=== PATIENT | female | born 1940 | race Caucasian/White ===

== ENCOUNTER 2017-05-04 19:05 | Emergency (ER) | payer MEDICARE, OTHER ==
[~2017-05-04] VITALS: Ht 165.1 cm; Wt 64.9 kg
[~2017-05-04 19:05] MED LIST: ALEN70 PO; ALENDRONATE; ASA 81 MG; ASPI325 PO; ATOR10; ATOR10 PO; ATOR20 PO; ATOR80 PO; Amlodipine Bes2.5 MG PO; CALCAVITD PO; CALCIUM/VIT D; CEPH500 PO; CLOP75 PO; DILT180; DIPASPER PO; DOCSEN PO; ERGO400 PO; FLUT.05NI; HCTZ; HYDACE5325 PO; LEVSOD50 PO; LIPITOR; LISI20 PO; LISIN; LOSHYD; MECL25 PO; METO25ER PO; METO50 PO; METOPROLOL; MULVIT PO; MULVITMIND PO; Omeprazole20 M1; SYNTHROID; VICODIN 5-3001 EACH PO
[2017-05-04] MEDS ORDERED: WARF2 PO (19:11)
[2017-05-04 19:29] LABS: BASOPHILS ABSOLUTE AUTO 0.04 K/mm3 (0.00-0.23); BASOPHILS PERCENT AUTO 1 % (0-2); EOSINOPHILS ABSOLUTE AUTO 0.19 K/mm3 (0.00-0.68); EOSINOPHILS PERCENT AUTO 3 % (0-6); Hematocrit 39.8 % (33.0-51.0); IMMATURE GRAN ABSOLUTE AUTO 0.02 K/mm3 (0.00-0.10); IMMATURE GRAN PERCENT AUTO 0 % (0-1); LYMPHOCYTES ABSOLUTE AUTO 1.89 K/mm3 (0.84-5.20); LYMPHOCYTES PERCENT AUTO 29 % (21-46); MONOCYTES PERCENT AUTO 11 % (4-13); Mean Corpuscular HGB 28.1 pg (26.0-34.0); Mean Corpuscular HGB Conc 32.7 g/dL (31.5-36.5); Mean Corpuscular Volume 86 fL (80-100); Mean Platelet Volume 9.2 fL (9.1-12.4); NEUTROPHILS ABSOLUTE AUTO 3.72 K/mm3 (1.96-9.15); NEUTROPHILS PERCENT AUTO 57 % (41-73); Platelet Count 312 K/mm3 (150-400); RDW Coefficient Variation 14.3 % (11.7-14.2); RDW Standard Deviation 45.4 fL (35.1-46.3); Red Blood Cell Count 4.63 M/mm3 (3.80-5.20); White Blood Cell Count 6.56 K/mm3 (4.00-11.30)
[2017-05-04 20:10] LABS: International Normalized Ratio 3.29; Prothrombin Time Results 35.5 Sec (9.7-11.5)
[2017-05-05 09:11] LABS: Alanine Aminotransfer (ALT/SGP 30 U/L (12-78); Albumin, Blood 4.4 g/dL (3.4-5.0); Alk Phos 101 U/L (50-136); Anion Gap 9 mmol/L (6-16); Aspartate Aminotrans (AST/SGOT 34 U/L (12-37); Bilirubin, Total 0.3 mg/dL (0.1-1.0); Blood Urea Nitrogen 13 mg/dL (8-24); Bun/Creatinine Ratio 16.9 (12.0-20.0); CO2, Blood 25 mmol/L (21-32); Calcium, Blood 9.1 mg/dL (8.5-10.1); Chloride, Blood 96 mmol/L (98-108); Creatinine, Blood 0.77 mg/dL (0.40-1.00); Globulin, Blood 4.5 g/dL (2.2-4.0); Glomerular Filtration Rate >60 (60-); Glucose, Blood 109 mg/dL (70-99); Potassium, Blood 4.5 mmol/L (3.5-5.5); Sodium, Blood 130 mmol/L (136-145); Total Protein, Blood 8.9 g/dL (6.4-8.2)
[2017-08-14] MEDS ORDERED: SPIR25 PO (11:35)
[2017-08-14] MEDS ORDERED: FURO20 PO (11:35)
[2017-08-14] MEDS ORDERED: Hair, Skin & N1 EACH PO (11:36)
[2017-08-16] MEDS ORDERED: ENOX100I SC (11:24)
[2018-01-19] MEDS ORDERED: ZESTRIL40 MG PO (15:40)
[2018-01-19] MEDS ORDERED: WARF7.5 PO (15:40)
[2018-01-19] MEDS ORDERED: SPIR50 PO (15:41)
[2018-01-19] MEDS ORDERED: TRAZ50 PO (15:41)
[2018-01-21] MEDS ORDERED: LEVSOD50 PO (08:45)
[2018-01-21] MEDS ORDERED: WARF6 PO (08:45)
[2018-01-26] MEDS ORDERED: ACET325 PO (14:36)
[2018-01-26] MEDS ORDERED: ONDA4ODT PO (14:38)
[2018-01-26] MEDS ORDERED: WARF4 PO (14:40)
[2018-01-26] MEDS ORDERED: ENOX100I SC (15:08)
[2018-01-30] MEDS ORDERED: WARF6 PO (08:31)
== END 2017-05-04 21:46 | disposition home or self-care (01) ==
LOC: ER 19:05
PROVIDERS: Emergency Medicine
DX: I10 Essential (primary) hypertension (principal)
CPT/HCPCS: 36415; 80053; 85025; 85610; 93005; 93010; 96374; 99284; J0360

== ENCOUNTER → 2017-05-07 | Outpatient (CLI) | payer MEDICARE, OTHER ==
[~2017-05-07] MED LIST changes: +ACET325 PO; +Cipro500 MG PO; +ENOX100I SC; +FURO20 PO; +Hair, Skin & N1 EACH PO; +ONDA4ODT PO; +SPIR25 PO; +SPIR50 PO; +TRAZ50 PO; +WARF2 PO; +WARF4 PO; +WARF6 PO; +WARF7.5 PO; +ZESTRIL40 MG PO
[2017-05-07 16:17] LABS: Anion Gap 10 mmol/L (6-16); Blood Urea Nitrogen 12 mg/dL (8-24); CO2, Blood 25 mmol/L (21-32); Calcium, Blood 9.7 mg/dL (8.5-10.1); Chloride, Blood 89 mmol/L (98-108); Creatinine, Blood 0.75 mg/dL (0.40-1.00); Glomerular Filtration Rate >60 (60-); Glucose, Blood 112 mg/dL (70-99); Potassium, Blood 4.3 mmol/L (3.5-5.5); Sodium, Blood 124 mmol/L (136-145)
== END ==
LOC: LAB EV 16:02
PROVIDERS: Physician Assistant
DX: R03.0 Elevated blood-pressure reading, without diagnosis of hypertension (principal)
CPT/HCPCS: 80048

== ENCOUNTER → 2017-08-14 | Outpatient (CLI) | payer MEDICARE, OTHER ==
[~2017-08-14] MED LIST changes: -ACET325 PO; -Cipro500 MG PO; -ONDA4ODT PO; -SPIR50 PO; -TRAZ50 PO; -WARF4 PO; -WARF6 PO; -WARF7.5 PO; -ZESTRIL40 MG PO
== END | disposition home or self-care (01) ==
LOC: LAB EV 16:58 → LAB SHORT 16:58
DX: R30.0 Dysuria (principal)
CPT/HCPCS: 87077; 87086; 87186

== ENCOUNTER 2017-08-15 00:48 | Day surgery (SDC) | payer MEDICARE, OTHER ==
[~2017-08-15 00:48] MED LIST changes: -ENOX100I SC
[2017-08-16] MEDS ORDERED: ENOX100I SC (11:24)
== END 2017-08-15 11:34 | disposition home or self-care (01) ==
LOC: ATC 00:48
DX: I48.2 Chronic atrial fibrillation (principal); I71.4 Abdominal aortic aneurysm, without rupture; I10 Essential (primary) hypertension; Z86.73 Personal history of transient ischemic attack (TIA), and cerebral infarction without residual deficits; Z87.891 Personal history of nicotine dependence
CPT/HCPCS: 36416; 85610; 96372; J1650

== ENCOUNTER 2017-08-17 00:40 | Day surgery (SDC) | payer MEDICARE, OTHER ==
[~2017-08-17 00:40] MED LIST changes: +ENOX100I SC
== END 2017-08-17 11:19 | disposition home or self-care (01) ==
LOC: ATC 00:40
DX: I48.2 Chronic atrial fibrillation (principal); I71.4 Abdominal aortic aneurysm, without rupture; I10 Essential (primary) hypertension; Z87.891 Personal history of nicotine dependence
CPT/HCPCS: 36416; 85610; 96372; J1650

== ENCOUNTER 2017-08-24 16:59 | Emergency (ER) | payer MEDICARE, OTHER ==
[~2017-08-24] VITALS: Ht 165.1 cm; Wt 63.5 kg
[2017-08-24 18:02] LABS: BASOPHILS ABSOLUTE AUTO 0.03 K/mm3 (0.00-0.23); BASOPHILS PERCENT AUTO 0 % (0-2); EOSINOPHILS ABSOLUTE AUTO 0.22 K/mm3 (0.00-0.68); EOSINOPHILS PERCENT AUTO 3 % (0-6); Hematocrit 26.1 % (33.0-51.0); Hemoglobin 8.7 g/dL (11.5-16.0); IMMATURE GRAN ABSOLUTE AUTO 0.05 K/mm3 (0.00-0.10); IMMATURE GRAN PERCENT AUTO 1 % (0-1); LYMPHOCYTES ABSOLUTE AUTO 1.35 K/mm3 (0.84-5.20); LYMPHOCYTES PERCENT AUTO 18 % (21-46); MONOCYTES ABSOLUTE AUTO 0.68 K/mm3 (0.16-1.47); MONOCYTES PERCENT AUTO 9 % (4-13); Mean Corpuscular HGB 29.8 pg (26.0-34.0); Mean Corpuscular HGB Conc 33.3 g/dL (31.5-36.5); Mean Corpuscular Volume 89 fL (80-100); Mean Platelet Volume 9.4 fL (9.1-12.4); NEUTROPHILS ABSOLUTE AUTO 5.06 K/mm3 (1.96-9.15); NEUTROPHILS PERCENT AUTO 68 % (41-73); Platelet Count 263 K/mm3 (150-400); RDW Coefficient Variation 13.5 % (11.7-14.2); RDW Standard Deviation 44.1 fL (35.1-46.3); Red Blood Cell Count 2.92 M/mm3 (3.80-5.20); White Blood Cell Count 7.39 K/mm3 (4.00-11.30)
[2017-08-24 18:19] LABS: Alanine Aminotransfer (ALT/SGP 22 U/L (12-78); Albumin, Blood 3.6 g/dL (3.4-5.0); Albumin/Globulin Ratio 0.9 (0.8-1.8); Alk Phos 86 U/L (50-136); Anion Gap 10 mmol/L (6-16); Aspartate Aminotrans (AST/SGOT 17 U/L (12-37); Bilirubin, Total 0.7 mg/dL (0.1-1.0); Blood Urea Nitrogen 14 mg/dL (8-24); Bun/Creatinine Ratio 17.3 (12.0-20.0); CO2, Blood 25 mmol/L (21-32); Calcium, Blood 9.3 mg/dL (8.5-10.1); Chloride, Blood 97 mmol/L (98-108); Creatinine, Blood 0.81 mg/dL (0.40-1.00); Globulin, Blood 4.2 g/dL (2.2-4.0); Glomerular Filtration Rate >60 (60-); Glucose, Blood 111 mg/dL (70-99); Potassium, Blood 4.1 mmol/L (3.5-5.5); Sodium, Blood 132 mmol/L (136-145); Total Protein, Blood 7.8 g/dL (6.4-8.2)
[2017-08-24 18:28] LABS: Source, Urine Clean Catch
[2017-08-24 18:30] LABS: Bilirubin, Urine Neg (Neg); Blood, Urine Neg (Neg); Glucose Qualitative, Urine Neg (Neg); Ketones, Urine Neg (Neg); Leukocyte Esterase, Urine 2+ (Neg); Nitrite, Urine Neg (Neg); Protein, Urine Neg (Neg); Urobilinogen, Urine NORM (Normal)
[2017-08-24 18:48] LABS: Appearance, Urine Clear (Clear); Color, Urine Yellow (P-Yellow)
[2017-08-24 18:51] LABS: Bacteria Rare /hpf; Red Blood Cells, Urine Not Seen /hpf (0-2); Squamous Epithelial Cells Mod /hpf (Few)
[2017-08-24] MEDS ORDERED: Cipro500 MG PO (19:23)
== END 2017-08-24 19:51 | disposition home or self-care (01) ==
LOC: ER 16:59
PROVIDERS: Emergency Medicine; Internal Medicine
DX: R42 Dizziness and giddiness (principal); D64.9 Anemia, unspecified; E87.1 Hypo-osmolality and hyponatremia; N39.0 Urinary tract infection, site not specified; Z79.899 Other long term (current) drug therapy; E03.9 Hypothyroidism, unspecified
CPT/HCPCS: 36415; 80053; 81001; 85025; 87086; 93005; 93010

== ENCOUNTER 2018-01-27 01:19 | Day surgery (SDC) | payer MEDICARE, OTHER ==
[~2018-01-27 01:19] MED LIST changes: +ACET325 PO; +Cipro500 MG PO; +ONDA4ODT PO; +SPIR50 PO; +TRAZ50 PO; +WARF4 PO; +WARF6 PO; +WARF7.5 PO; +ZESTRIL40 MG PO
[2018-01-30] MEDS ORDERED: WARF6 PO (08:31)
== END 2018-01-27 07:50 | disposition home or self-care (01) ==
LOC: ATC 01:19
DX: I48.91 Unspecified atrial fibrillation (principal); I10 Essential (primary) hypertension; I25.10 Atherosclerotic heart disease of native coronary artery without angina pectoris; E78.5 Hyperlipidemia, unspecified
CPT/HCPCS: 96372; J1650

== ENCOUNTER 2018-01-28 08:09 | Day surgery (SDC) | payer MEDICARE, OTHER ==
[2018-01-30] MEDS ORDERED: WARF6 PO (08:31)
== END 2018-01-28 22:44 | disposition home or self-care (01) ==
LOC: ATC 08:09
DX: I48.91 Unspecified atrial fibrillation (principal); I10 Essential (primary) hypertension; E78.5 Hyperlipidemia, unspecified
CPT/HCPCS: 96372; J1650

== ENCOUNTER → 2018-07-24 | Outpatient (CLI) | payer MEDICARE, OTHER | END | disposition home or self-care (01) | LOC: LAB SHORT 11:12 → LAB EV 11:12 | DX: N39.0 Urinary tract infection, site not specified (principal) | CPT/HCPCS: 87086 ==

== ENCOUNTER 2018-11-20 13:50 | Emergency (ER) | payer MEDICARE, OTHER ==
[~2018-11-20] VITALS: Ht 165.1 cm; Wt 64.4 kg
[2018-11-20 14:28] LABS: BASOPHILS ABSOLUTE AUTO 0.04 K/mm3 (0.00-0.23); BASOPHILS PERCENT AUTO 1 % (0-2); EOSINOPHILS ABSOLUTE AUTO 0.12 K/mm3 (0.00-0.68); EOSINOPHILS PERCENT AUTO 2 % (0-6); Hematocrit 37.2 % (33.0-51.0); Hemoglobin 12.5 g/dL (11.5-16.0); IMMATURE GRAN ABSOLUTE AUTO 0.03 K/mm3 (0.00-0.10); IMMATURE GRAN PERCENT AUTO 0 % (0-1); LYMPHOCYTES ABSOLUTE AUTO 1.49 K/mm3 (0.84-5.20); LYMPHOCYTES PERCENT AUTO 18 % (21-46); MONOCYTES ABSOLUTE AUTO 0.64 K/mm3 (0.16-1.47); MONOCYTES PERCENT AUTO 8 % (4-13); Mean Corpuscular HGB 29.7 pg (26.0-34.0); Mean Corpuscular HGB Conc 33.6 g/dL (31.5-36.5); Mean Corpuscular Volume 88 fL (80-100); Mean Platelet Volume 9.5 fL (9.1-12.4); NEUTROPHILS ABSOLUTE AUTO 5.81 K/mm3 (1.96-9.15); NEUTROPHILS PERCENT AUTO 71 % (41-73); Platelet Count 283 K/mm3 (150-400); RDW Coefficient Variation 12.9 % (11.7-14.2); RDW Standard Deviation 41.8 fL (35.1-46.3); Red Blood Cell Count 4.21 M/mm3 (3.80-5.20); White Blood Cell Count 8.13 K/mm3 (4.00-11.30)
[2018-11-20 14:47] LABS: International Normalized Ratio 2.51; Prothrombin Time Results 24.5 Sec (9.7-11.5)
[2018-11-20 15:02] LABS: Alanine Aminotransfer (ALT/SGP 34 U/L (12-78); Albumin, Blood 4.7 g/dL (3.4-5.0); Alk Phos 109 U/L (50-136); Anion Gap 8 mmol/L (6-16); Aspartate Aminotrans (AST/SGOT 32 U/L (12-37); Bilirubin, Total 0.6 mg/dL (0.1-1.0); Blood Urea Nitrogen 21 mg/dL (8-24); Bun/Creatinine Ratio 24.7 (12.0-20.0); CO2, Blood 26 mmol/L (21-32); Calcium, Blood 9.4 mg/dL (8.5-10.1); Chloride, Blood 93 mmol/L (98-108); Creatinine, Blood 0.85 mg/dL (0.40-1.00); Globulin, Blood 4.7 g/dL (2.2-4.0); Glomerular Filtration Rate >60 (60-); Glucose, Blood 90 mg/dL (70-99); Sodium, Blood 127 mmol/L (136-145); Total Protein, Blood 9.4 g/dL (6.4-8.2); Troponin I <0.015 ng/mL (0.000-0.040)
[2018-11-20 15:09] LABS: Free Thyroxine 1.13 ng/dL (0.70-1.60)
[2018-11-20 15:12] LABS: Thyroid Stimulating Hormone 4.16 uIU/mL (0.360-4.800); Triiodothyronine, Free 2.38 pg/mL (2.18-3.98)
== END 2018-11-20 16:46 | disposition home or self-care (01) ==
LOC: ER 13:50
PROVIDERS: Physician Assistant
DX: I48.91 Unspecified atrial fibrillation (principal); R47.89 Other speech disturbances; H93.19 Tinnitus, unspecified ear; I10 Essential (primary) hypertension; I25.10 Atherosclerotic heart disease of native coronary artery without angina pectoris; E03.9 Hypothyroidism, unspecified; Z87.891 Personal history of nicotine dependence; Z88.8 Allergy status to other drugs, medicaments and biological substances; Z79.01 Long term (current) use of anticoagulants; Z79.899 Other long term (current) drug therapy
CPT/HCPCS: 36415; 70450; 71046; 80053; 84439; 84443; 84481; 84484; 85025; 85610; 85730; 93005; 93010; 99285-25

== ENCOUNTER 2018-12-27 19:11 | Emergency (ER) | payer MEDICARE, OTHER ==
[~2018-12-27] VITALS: Ht 165.1 cm; Wt 62.6 kg
[2018-12-27 20:42] LABS: BASOPHILS ABSOLUTE AUTO 0.03 K/mm3 (0.00-0.23); BASOPHILS PERCENT AUTO 0 % (0-2); EOSINOPHILS ABSOLUTE AUTO 0.14 K/mm3 (0.00-0.68); EOSINOPHILS PERCENT AUTO 1 % (0-6); Hemoglobin 11.8 g/dL (11.5-16.0); IMMATURE GRAN ABSOLUTE AUTO 0.05 K/mm3 (0.00-0.10); IMMATURE GRAN PERCENT AUTO 1 % (0-1); LYMPHOCYTES ABSOLUTE AUTO 1.57 K/mm3 (0.84-5.20); LYMPHOCYTES PERCENT AUTO 15 % (21-46); MONOCYTES ABSOLUTE AUTO 0.78 K/mm3 (0.16-1.47); MONOCYTES PERCENT AUTO 8 % (4-13); Mean Corpuscular HGB 29.3 pg (26.0-34.0); Mean Corpuscular HGB Conc 32.8 g/dL (31.5-36.5); Mean Corpuscular Volume 89 fL (80-100); Mean Platelet Volume 9.5 fL (9.1-12.4); NEUTROPHILS ABSOLUTE AUTO 7.84 K/mm3 (1.96-9.15); NEUTROPHILS PERCENT AUTO 75 % (41-73); Platelet Count 277 K/mm3 (150-400); RDW Coefficient Variation 12.6 % (11.7-14.2); RDW Standard Deviation 41.8 fL (35.1-46.3); Red Blood Cell Count 4.03 M/mm3 (3.80-5.20); White Blood Cell Count 10.41 K/mm3 (4.00-11.30)
[2018-12-27 20:55] LABS: International Normalized Ratio 2.63; Prothrombin Time Results 25.5 Sec (9.7-11.5)
[2018-12-27 21:14] LABS: Alanine Aminotransfer (ALT/SGP 30 U/L (12-78); Albumin, Blood 4.5 g/dL (3.4-5.0); Albumin/Globulin Ratio 1.1 (0.8-1.8); Alk Phos 98 U/L (50-136); Anion Gap 6 mmol/L (6-16); Aspartate Aminotrans (AST/SGOT 22 U/L (12-37); Bilirubin, Total 0.6 mg/dL (0.1-1.0); Blood Urea Nitrogen 17 mg/dL (8-24); Bun/Creatinine Ratio 19.5 (12.0-20.0); CO2, Blood 28 mmol/L (21-32); Calcium, Blood 9.7 mg/dL (8.5-10.1); Chloride, Blood 92 mmol/L (98-108); Creatinine, Blood 0.87 mg/dL (0.40-1.00); Glomerular Filtration Rate >60 (60-); Glucose, Blood 115 mg/dL (70-99); Potassium, Blood 4.2 mmol/L (3.5-5.5); Sodium, Blood 126 mmol/L (136-145); Total Protein, Blood 8.5 g/dL (6.4-8.2); Troponin I <0.015 ng/mL (0.000-0.040)
[2018-12-27 22:49] LABS: Source, Urine Clean Catch
[2018-12-27 22:51] LABS: Bilirubin, Urine Neg (Neg); Blood, Urine Neg (Neg); Glucose Qualitative, Urine Neg (Neg); Ketones, Urine Neg (Neg); Leukocyte Esterase, Urine 3+ (Neg); Nitrite, Urine Neg (Neg); Protein, Urine Neg (Neg); Urobilinogen, Urine NORM (Normal)
[2018-12-27 22:59] LABS: Appearance, Urine Clear (Clear); Color, Urine Yellow (P-Yellow)
[2018-12-27 23:01] LABS: Bacteria Few /hpf; Red Blood Cells, Urine 0-2 /hpf (0-2); Squamous Epithelial Cells Few /hpf (Few)
[2018-12-27] MEDS ORDERED: MECL12.5 PO (23:49)
== END 2018-12-28 00:32 | disposition home or self-care (01) ==
LOC: ER 19:11
PROVIDERS: Physician Assistant
DX: R42 Dizziness and giddiness (principal); Z79.899 Other long term (current) drug therapy; Z79.01 Long term (current) use of anticoagulants; Z87.891 Personal history of nicotine dependence
CPT/HCPCS: 36415; 80053; 81001; 84484; 85025; 85610; 87086; 93005; 93010; 96360; 99284-25; J7030

== ENCOUNTER → 2019-03-16 | Outpatient (CLI) | payer MEDICARE, OTHER ==
[~2019-03-16] MED LIST changes: +MECL12.5 PO
== END | disposition home or self-care (01) ==
LOC: LAB SHORT 12:56 → LAB EV 12:56
DX: N39.0 Urinary tract infection, site not specified (principal)
CPT/HCPCS: 87077; 87086; 87186

== ENCOUNTER 2019-03-23 01:55 | Emergency (ER) | payer MEDICARE, OTHER ==
[~2019-03-23] VITALS: Ht 165.1 cm; Wt 65.8 kg
== END 2019-03-23 04:03 | disposition home or self-care (01) ==
LOC: ER 01:55
DX: J02.9 Acute pharyngitis, unspecified (principal); T41.3X5A Adverse effect of local anesthetics, initial encounter; T49.6X5A Adverse effect of otorhinolaryngological drugs and preparations, initial encounter; I10 Essential (primary) hypertension; I48.91 Unspecified atrial fibrillation; E03.9 Hypothyroidism, unspecified; Z91.048 Other nonmedicinal substance allergy status; Z79.899 Other long term (current) drug therapy; Z79.01 Long term (current) use of anticoagulants; Z87.891 Personal history of nicotine dependence
CPT/HCPCS: 99282

== ENCOUNTER → 2019-07-12 | Outpatient (CLI) | payer MEDICARE, OTHER | END | disposition home or self-care (01) | LOC: LAB SHORT 15:31 → LAB EV 15:31 | DX: N39.0 Urinary tract infection, site not specified (principal) | CPT/HCPCS: 87086 ==

== ENCOUNTER → 2019-08-29 | Outpatient (CLI) | payer MEDICARE, OTHER | END | disposition home or self-care (01) | LOC: LAB EV 09:29 → LAB SHORT 09:29 | DX: N39.0 Urinary tract infection, site not specified (principal) | CPT/HCPCS: 87077; 87086; 87186 ==

== ENCOUNTER → 2020-01-31 | Outpatient (CLI) | payer MEDICARE, OTHER ==
[~2020-01-31] MED LIST changes: +PHENA200 PO
== END ==
LOC: LAB EV 13:56 → LAB SHORT 13:56
DX: N39.0 Urinary tract infection, site not specified (principal)
CPT/HCPCS: 87077; 87086; 87186

== ENCOUNTER 2020-04-03 14:46 | Emergency (ER) | payer MEDICARE, OTHER ==
[~2020-04-03] VITALS: Ht 165.1 cm; Wt 59.0 kg
[~2020-04-03 14:46] MED LIST changes: -FURO20 PO; -Hair, Skin & N1 EACH PO; -METO50 PO; +WARF5 PO; -ZESTRIL40 MG PO
[2020-04-03 15:26] LABS: BASOPHILS ABSOLUTE AUTO 0.04 K/mm3 (0.00-0.23); BASOPHILS PERCENT AUTO 1 % (0-2); EOSINOPHILS ABSOLUTE AUTO 0.21 K/mm3 (0.00-0.68); EOSINOPHILS PERCENT AUTO 3 % (0-6); Hematocrit 36.4 % (33.0-51.0); Hemoglobin 12.1 g/dL (11.5-16.0); IMMATURE GRAN ABSOLUTE AUTO 0.03 K/mm3 (0.00-0.10); IMMATURE GRAN PERCENT AUTO 0 % (0-1); LYMPHOCYTES ABSOLUTE AUTO 1.96 K/mm3 (0.84-5.20); LYMPHOCYTES PERCENT AUTO 26 % (21-46); MONOCYTES PERCENT AUTO 9 % (4-13); Mean Corpuscular HGB 29.3 pg (26.0-34.0); Mean Corpuscular HGB Conc 33.2 g/dL (31.5-36.5); Mean Corpuscular Volume 88 fL (80-100); Mean Platelet Volume 9.7 fL (9.1-12.4); NEUTROPHILS ABSOLUTE AUTO 4.57 K/mm3 (1.96-9.15); NEUTROPHILS PERCENT AUTO 61 % (41-73); Platelet Count 255 K/mm3 (150-400); RDW Coefficient Variation 13.3 % (11.7-14.2); RDW Standard Deviation 42.9 fL (35.1-46.3); Red Blood Cell Count 4.13 M/mm3 (3.80-5.20); White Blood Cell Count 7.51 K/mm3 (4.00-11.30)
[2020-04-03 15:36] LABS: International Normalized Ratio 2.52; Prothrombin Time Results 25.6 Sec (9.7-11.5)
[2020-04-03 15:42] LABS: Alanine Aminotransfer (ALT/SGP 26 U/L (12-78); Albumin, Blood 4.1 g/dL (3.4-5.0); Alk Phos 88 U/L (50-136); Anion Gap 7 mmol/L (6-16); Aspartate Aminotrans (AST/SGOT 21 U/L (12-37); Bilirubin, Total 0.4 mg/dL (0.1-1.0); Blood Urea Nitrogen 21 mg/dL (8-24); Bun/Creatinine Ratio 25.7 (12.0-20.0); CO2, Blood 24 mmol/L (21-32); Calcium, Blood 9.3 mg/dL (8.5-10.1); Chloride, Blood 98 mmol/L (98-108); Creatinine, Blood 0.82 mg/dL (0.40-1.00); Globulin, Blood 4.2 g/dL (2.2-4.0); Glomerular Filtration Rate >60 (60-); Glucose, Blood 102 mg/dL (70-99); Potassium, Blood 4.7 mmol/L (3.5-5.5); Sodium, Blood 129 mmol/L (136-145); Total Protein, Blood 8.3 g/dL (6.4-8.2)
== END 2020-04-03 16:51 | disposition home or self-care (01) ==
LOC: ER 14:46
PROVIDERS: Emergency Medicine
DX: K92.2 Gastrointestinal hemorrhage, unspecified (principal); I10 Essential (primary) hypertension; I48.91 Unspecified atrial fibrillation; I25.810 Atherosclerosis of coronary artery bypass graft(s) without angina pectoris; Z79.01 Long term (current) use of anticoagulants; Z79.82 Long term (current) use of aspirin; Z91.048 Other nonmedicinal substance allergy status; Z79.899 Other long term (current) drug therapy; Z86.73 Personal history of transient ischemic attack (TIA), and cerebral infarction without residual deficits; Z95.1 Presence of aortocoronary bypass graft; Z87.891 Personal history of nicotine dependence
CPT/HCPCS: 36415; 80053; 82272; 85025; 85610; 99283

== ENCOUNTER → 2020-04-22 | Outpatient (CLI) | payer MEDICARE, OTHER ==
[~2020-04-22] MED LIST changes: +ATORVASTATIN CA40 MG PO; +Aspir 8181 MG PO; +Coumadin2 MG PO; +EUTHYROX50 MCG PO; +FURO20 PO; +METO50 PO; +MULVITA PO; +Prinivil10 MG PO; +SPIRONOLACTONE25 MG PO
== END ==
LOC: LAB EV 10:55 → LAB SHORT 10:55
DX: N39.0 Urinary tract infection, site not specified (principal)
CPT/HCPCS: 87077; 87086; 87186

== ENCOUNTER 2020-04-27 18:15 | Inpatient (IN) | payer MEDICARE, OTHER ==
[~2020-04-27] VITALS: Ht 165.1 cm; Wt 63.2 kg
[~2020-04-27 18:15] MED LIST changes: -ATORVASTATIN CA40 MG PO; -Aspir 8181 MG PO; -Coumadin2 MG PO; -EUTHYROX50 MCG PO; -FURO20 PO; -METO50 PO; -MULVITA PO; -Prinivil10 MG PO; -SPIRONOLACTONE25 MG PO
[2020-04-27 18:47] LABS: BASOPHILS ABSOLUTE AUTO 0.05 K/mm3 (0.00-0.23); BASOPHILS PERCENT AUTO 1 % (0-2); EOSINOPHILS ABSOLUTE AUTO 0.09 K/mm3 (0.00-0.68); EOSINOPHILS PERCENT AUTO 1 % (0-6); Hematocrit 36.1 % (33.0-51.0); Hemoglobin 11.9 g/dL (11.5-16.0); IMMATURE GRAN ABSOLUTE AUTO 0.05 K/mm3 (0.00-0.10); IMMATURE GRAN PERCENT AUTO 1 % (0-1); LYMPHOCYTES ABSOLUTE AUTO 1.53 K/mm3 (0.84-5.20); LYMPHOCYTES PERCENT AUTO 16 % (21-46); MONOCYTES PERCENT AUTO 8 % (4-13); Mean Corpuscular HGB 28.7 pg (26.0-34.0); Mean Corpuscular Volume 87 fL (80-100); Mean Platelet Volume 9.3 fL (9.1-12.4); NEUTROPHILS ABSOLUTE AUTO 7.03 K/mm3 (1.96-9.15); NEUTROPHILS PERCENT AUTO 74 % (41-73); Platelet Count 250 K/mm3 (150-400); RDW Coefficient Variation 13.2 % (11.7-14.2); RDW Standard Deviation 42.4 fL (35.1-46.3); Red Blood Cell Count 4.14 M/mm3 (3.80-5.20); White Blood Cell Count 9.55 K/mm3 (4.00-11.30)
[2020-04-27 19:06] LABS: Alanine Aminotransfer (ALT/SGP 31 U/L (12-78); Albumin, Blood 4.6 g/dL (3.4-5.0); Albumin/Globulin Ratio 1.2 (0.8-1.8); Alk Phos 107 U/L (50-136); Anion Gap 6 mmol/L (6-16); Aspartate Aminotrans (AST/SGOT 24 U/L (12-37); Bilirubin, Total 0.5 mg/dL (0.1-1.0); Blood Urea Nitrogen 19 mg/dL (8-24); Bun/Creatinine Ratio 25.3 (12.0-20.0); CO2, Blood 26 mmol/L (21-32); Calcium, Blood 9.4 mg/dL (8.5-10.1); Chloride, Blood 95 mmol/L (98-108); Creatinine, Blood 0.75 mg/dL (0.40-1.00); Globulin, Blood 3.8 g/dL (2.2-4.0); Glomerular Filtration Rate >60 (60-); Glucose, Blood 100 mg/dL (70-99); Potassium, Blood 4.1 mmol/L (3.5-5.5); Sodium, Blood 127 mmol/L (136-145); Total Protein, Blood 8.4 g/dL (6.4-8.2)
[2020-04-27] MEDS ORDERED: Prinivil10 MG PO (21:52)
[2020-04-27] MEDS ORDERED: Coumadin2 MG PO (21:53)
[2020-04-27] MEDS ORDERED: FURO20 PO (21:54)
[2020-04-27] MEDS ORDERED: EUTHYROX50 MCG PO (21:54)
[2020-04-27] MEDS ORDERED: ATORVASTATIN CA40 MG PO (21:54)
[2020-04-27] MEDS ORDERED: SPIRONOLACTONE25 MG PO (21:55)
[2020-04-27] MEDS ORDERED: METO50 PO (21:55)
[2020-04-27] MEDS ORDERED: Aspir 8181 MG PO (21:56)
[2020-04-27] MEDS ORDERED: MECL12.5 PO (22:13)
[2020-04-27] MEDS ORDERED: MULVITA PO (22:13)
[2020-04-27 23:54] LABS: International Normalized Ratio 3.11; Prothrombin Time Results 31.2 Sec (9.7-11.5)
[2020-04-28 05:13] LABS: BASOPHILS ABSOLUTE AUTO 0.03 K/mm3 (0.00-0.23); BASOPHILS PERCENT AUTO 1 % (0-2); EOSINOPHILS ABSOLUTE AUTO 0.19 K/mm3 (0.00-0.68); EOSINOPHILS PERCENT AUTO 3 % (0-6); Hematocrit 31.8 % (33.0-51.0); Hemoglobin 10.7 g/dL (11.5-16.0); IMMATURE GRAN ABSOLUTE AUTO 0.03 K/mm3 (0.00-0.10); IMMATURE GRAN PERCENT AUTO 1 % (0-1); LYMPHOCYTES ABSOLUTE AUTO 1.14 K/mm3 (0.84-5.20); LYMPHOCYTES PERCENT AUTO 18 % (21-46); MONOCYTES ABSOLUTE AUTO 0.65 K/mm3 (0.16-1.47); MONOCYTES PERCENT AUTO 10 % (4-13); Mean Corpuscular HGB 29.6 pg (26.0-34.0); Mean Corpuscular HGB Conc 33.6 g/dL (31.5-36.5); Mean Corpuscular Volume 88 fL (80-100); Mean Platelet Volume 9.4 fL (9.1-12.4); NEUTROPHILS ABSOLUTE AUTO 4.45 K/mm3 (1.96-9.15); NEUTROPHILS PERCENT AUTO 69 % (41-73); Platelet Count 217 K/mm3 (150-400); RDW Coefficient Variation 13.2 % (11.7-14.2); RDW Standard Deviation 42.8 fL (35.1-46.3); Red Blood Cell Count 3.61 M/mm3 (3.80-5.20); White Blood Cell Count 6.49 K/mm3 (4.00-11.30)
[2020-04-28 05:43] LABS: Alanine Aminotransfer (ALT/SGP 25 U/L (12-78); Albumin, Blood 3.6 g/dL (3.4-5.0); Albumin/Globulin Ratio 1.1 (0.8-1.8); Alk Phos 94 U/L (50-136); Anion Gap 9 mmol/L (6-16); Aspartate Aminotrans (AST/SGOT 18 U/L (12-37); Bilirubin, Total 0.9 mg/dL (0.1-1.0); Blood Urea Nitrogen 17 mg/dL (8-24); Bun/Creatinine Ratio 23.8 (12.0-20.0); CO2, Blood 24 mmol/L (21-32); Calcium, Blood 8.9 mg/dL (8.5-10.1); Chloride, Blood 98 mmol/L (98-108); Creatinine, Blood 0.71 mg/dL (0.40-1.00); Globulin, Blood 3.3 g/dL (2.2-4.0); Glomerular Filtration Rate >60 (60-); Glucose, Blood 101 mg/dL (70-99); Sodium, Blood 131 mmol/L (136-145); Total Protein, Blood 6.9 g/dL (6.4-8.2)
--- NOTE | 2020-04-28 05:50 | NUR ---
SHIFT SUMMARY- PT. NEW ADMIT FROM ED. A&O, PLEASANT AND COOPEATIVE WITH CARE. ORIENTED TO NURSING STAFF AND ROOM. PT. INDEPENDDENT IN ROOM. HAD NO COMPLAINTS DURING THE NIGHT, BP WNL. ASLEEP MOST OF THE NIGHT, NO APPARENT DISTRESS NOTED. IV FLUIDS INFUSING. CALL LIGHT WITHIN REACH AND SIDE RAILS UPX2. WILL CONT TO MONITOR.
[2020-04-28 06:09] LABS: International Normalized Ratio 2.39
[2020-04-28 06:48] LABS: Prothrombin Time Results 24.3 Sec (9.7-11.5)
--- NOTE | 2020-04-28 18:20 | NUR ---
SHIFT SUMMARY PATIENT ALERT, ORIENTED, INDEPENDENT IN THE ROOM THIS SHIFT. PATIENT DENIES PAIN THROUGHOUT THIS SHIFT. PATIENT REPORTED NUMBNESS THROUGH THE LEFT SIDE OF HER HEAD/FACE EARLY THIS SHIFT. DR NOTIFIED, IN THE ROOM TO DISCUSS POSSIBLE CAUSE AND NEED FOR OUTPATIENT VASCULAR FOLLOW-UP SHORTLY AFTER. TELEMETRY CALLED TO REPORT HR IN THE 40S THIS AM. DR NOTIFIED, BP MEDICATIONS ADJUSTED WITH NO FURTHER BRADYCARDIA REPORTED. PATIENT CURRENTLY SITTING UP ON THE BEDSIDE EATING DINNER.
[2020-04-28 19:45] LABS: Source, Urine Clean Catch
[2020-04-28 19:53] LABS: Appearance, Urine Clear (Clear); Bilirubin, Urine Neg (Neg); Blood, Urine Neg (Neg); Color, Urine Yellow (P-Yellow); Glucose Qualitative, Urine Neg (Neg); Ketones, Urine Neg (Neg); Leukocyte Esterase, Urine Neg (Neg); Nitrite, Urine Neg (Neg); Protein, Urine Neg (Neg); Urobilinogen, Urine NORM (Normal)
[2020-04-29 05:28] LABS: International Normalized Ratio 1.83; Prothrombin Time Results 18.9 Sec (9.7-11.5)
[2020-04-29 05:38] LABS: Anion Gap 9 mmol/L (6-16); Blood Urea Nitrogen 19 mg/dL (8-24); Bun/Creatinine Ratio 27.6 (12.0-20.0); CO2, Blood 24 mmol/L (21-32); Calcium, Blood 8.9 mg/dL (8.5-10.1); Chloride, Blood 97 mmol/L (98-108); Creatinine, Blood 0.69 mg/dL (0.40-1.00); Glomerular Filtration Rate >60 (60-); Glucose, Blood 87 mg/dL (70-99); Sodium, Blood 130 mmol/L (136-145)
--- NOTE | 2020-04-29 08:02 | NUR ---
04/29/20 0630 PT READING A BOOK. CHEERFUL AND DENIES ANY S/S OR DISCOMFORT. STATES SHE IS HOPING TO GO HOME TODAY. VITALS STABLE. HEART MONITOR SHOWS JUNCTIONAL RHYTHEM IN THE 60'S. UNEVENTFUL NIGHT.
--- NOTE | 2020-04-29 11:56 | NUR ---
DISCHARGE SUMMARY PT LEFT BY WC WITH DC VOLUNTEER. DENIED PAIN. MEDS REVEWED (LISINOPRIL INCREASED TO 20MG/DAY, SCRIPT FAXED TO [facility]). PIV REMOVED, EDUCATION REVIEWED, PT PREFERRED TO MAKE ALL HER OWN F/U APPTS DUE TO HER TRAVELING TO [place].
== END 2020-04-29 11:29 | disposition home or self-care (01) | DRG 305 ==
LOC: ER 18:15 → MEDS 18:16 → ER 23:31 → MEDS 04-28 00:28
PROVIDERS: Emergency Medicine; Internal Medicine; ADMIT Internal Medicine
DX: I16.0 Hypertensive urgency (principal); G45.9 Transient cerebral ischemic attack, unspecified; E87.1 Hypo-osmolality and hyponatremia; G43.909 Migraine, unspecified, not intractable, without status migrainosus; H53.459 Other localized visual field defect, unspecified eye; I65.22 Occlusion and stenosis of left carotid artery; D63.8 Anemia in other chronic diseases classified elsewhere; I25.10 Atherosclerotic heart disease of native coronary artery without angina pectoris; I48.91 Unspecified atrial fibrillation; I11.9 Hypertensive heart disease without heart failure; Z95.1 Presence of aortocoronary bypass graft; Z95.2 Presence of prosthetic heart valve; Z87.891 Personal history of nicotine dependence; E03.9 Hypothyroidism, unspecified; Z86.73 Personal history of transient ischemic attack (TIA), and cerebral infarction without residual deficits; Z79.01 Long term (current) use of anticoagulants
CPT/HCPCS: 36415; 70450; 70496; 70498; 80048; 80053; 81003; 82947; 83735; 84484; 85025; 85610; 93005; 93010; 99285-25; A9270; G0378; J7030; Q9967

== ENCOUNTER 2021-02-15 05:15 | Inpatient (IN) | payer MEDICARE, OTHER ==
[~2021-02-15] VITALS: Ht 165.1 cm; Wt 59.9 kg
[~2021-02-15 05:15] MED LIST changes: +ATORVASTATIN CA40 MG PO; +Aspir 8181 MG PO; +Coumadin2 MG PO; +EUTHYROX50 MCG PO; +FURO20 PO; +METO50 PO; +MULVITA PO; +Prinivil10 MG PO; +SPIRONOLACTONE25 MG PO
[2021-02-15 06:01] LABS: BASOPHILS ABSOLUTE AUTO 0.04 K/mm3 (0.00-0.23); BASOPHILS PERCENT AUTO 1 % (0-2); EOSINOPHILS ABSOLUTE AUTO 0.08 K/mm3 (0.00-0.68); EOSINOPHILS PERCENT AUTO 1 % (0-6); Hematocrit 34.3 % (33.0-51.0); Hemoglobin 11.5 g/dL (11.5-16.0); IMMATURE GRAN ABSOLUTE AUTO 0.04 K/mm3 (0.00-0.10); IMMATURE GRAN PERCENT AUTO 1 % (0-1); LYMPHOCYTES ABSOLUTE AUTO 0.98 K/mm3 (0.84-5.20); LYMPHOCYTES PERCENT AUTO 14 % (21-46); MONOCYTES PERCENT AUTO 7 % (4-13); Mean Corpuscular HGB 28.6 pg (26.0-34.0); Mean Corpuscular HGB Conc 33.5 g/dL (31.5-36.5); Mean Corpuscular Volume 85 fL (80-100); Mean Platelet Volume 8.5 fL (9.1-12.4); NEUTROPHILS ABSOLUTE AUTO 5.58 K/mm3 (1.96-9.15); NEUTROPHILS PERCENT AUTO 77 % (41-73); Platelet Count 278 K/mm3 (150-400); RDW Coefficient Variation 13.2 % (11.7-14.2); RDW Standard Deviation 41.3 fL (35.1-46.3); Red Blood Cell Count 4.02 M/mm3 (3.80-5.20); White Blood Cell Count 7.22 K/mm3 (4.00-11.30)
[2021-02-15] MEDS ORDERED: WARF1 PO (06:06)
[2021-02-15 06:26] LABS: Alanine Aminotransfer (ALT/SGP 26 U/L (12-78); Albumin/Globulin Ratio 0.9 (0.8-1.8); Alk Phos 105 U/L (50-136); Anion Gap 7 mmol/L (6-16); Aspartate Aminotrans (AST/SGOT 20 U/L (12-37); Bilirubin, Total 0.6 mg/dL (0.1-1.0); Blood Urea Nitrogen 19 mg/dL (8-24); Bun/Creatinine Ratio 14.1 (12.0-20.0); CO2, Blood 25 mmol/L (21-32); Calcium, Blood 9.6 mg/dL (8.5-10.1); Chloride, Blood 94 mmol/L (98-108); Creatinine, Blood 1.35 mg/dL (0.40-1.00); Globulin, Blood 4.4 g/dL (2.2-4.0); Glomerular Filtration Rate 38 (60-); Glucose, Blood 101 mg/dL (70-99); Potassium, Blood 4.8 mmol/L (3.5-5.5); Sodium, Blood 126 mmol/L (136-145); Total Protein, Blood 8.4 g/dL (6.4-8.2); Troponin I <0.015 ng/mL (0.000-0.040)
[2021-02-15 06:49] LABS: International Normalized Ratio 3.66; Prothrombin Time Results 35.3 Sec (9.7-11.5)
[2021-02-15] MEDS ORDERED: WARF6 PO (19:58)
[2021-02-16 06:10] LABS: BASOPHILS ABSOLUTE AUTO 0.03 K/mm3 (0.00-0.23); BASOPHILS PERCENT AUTO 0 % (0-2); EOSINOPHILS ABSOLUTE AUTO 0.12 K/mm3 (0.00-0.68); EOSINOPHILS PERCENT AUTO 2 % (0-6); Hematocrit 34.1 % (33.0-51.0); Hemoglobin 11.5 g/dL (11.5-16.0); IMMATURE GRAN ABSOLUTE AUTO 0.03 K/mm3 (0.00-0.10); IMMATURE GRAN PERCENT AUTO 0 % (0-1); LYMPHOCYTES ABSOLUTE AUTO 1.49 K/mm3 (0.84-5.20); LYMPHOCYTES PERCENT AUTO 21 % (21-46); MONOCYTES ABSOLUTE AUTO 0.63 K/mm3 (0.16-1.47); MONOCYTES PERCENT AUTO 9 % (4-13); Mean Corpuscular HGB 28.7 pg (26.0-34.0); Mean Corpuscular HGB Conc 33.7 g/dL (31.5-36.5); Mean Corpuscular Volume 85 fL (80-100); Mean Platelet Volume 8.9 fL (9.1-12.4); NEUTROPHILS ABSOLUTE AUTO 4.68 K/mm3 (1.96-9.15); NEUTROPHILS PERCENT AUTO 67 % (41-73); Platelet Count 296 K/mm3 (150-400); RDW Coefficient Variation 13.4 % (11.7-14.2); RDW Standard Deviation 41.7 fL (35.1-46.3); Red Blood Cell Count 4.01 M/mm3 (3.80-5.20); White Blood Cell Count 6.98 K/mm3 (4.00-11.30)
[2021-02-16 06:35] LABS: Alanine Aminotransfer (ALT/SGP 27 U/L (12-78); Albumin, Blood 4.1 g/dL (3.4-5.0); Albumin/Globulin Ratio 1.1 (0.8-1.8); Alk Phos 106 U/L (50-136); Anion Gap 11 mmol/L (6-16); Aspartate Aminotrans (AST/SGOT 22 U/L (12-37); Bilirubin, Total 0.9 mg/dL (0.1-1.0); Blood Urea Nitrogen 14 mg/dL (8-24); Bun/Creatinine Ratio 11.9 (12.0-20.0); CO2, Blood 22 mmol/L (21-32); Calcium, Blood 9.4 mg/dL (8.5-10.1); Chloride, Blood 93 mmol/L (98-108); Creatinine, Blood 1.18 mg/dL (0.40-1.00); Globulin, Blood 3.7 g/dL (2.2-4.0); Glomerular Filtration Rate 44 (60-); Glucose, Blood 101 mg/dL (70-99); Potassium, Blood 4.7 mmol/L (3.5-5.5); Sodium, Blood 126 mmol/L (136-145); Total Protein, Blood 7.8 g/dL (6.4-8.2); Troponin I <0.015 ng/mL (0.000-0.040)
[2021-02-16 11:47] LABS: International Normalized Ratio 3.67; Prothrombin Time Results 35.4 Sec (9.7-11.5)
[2021-02-16] MEDS ORDERED: AMLO5 PO (13:13)
[2021-02-16] MEDS ORDERED: ACET325 PO (13:13)
== END 2021-02-16 14:48 | disposition home or self-care (01) | DRG 305 ==
LOC: ER 05:15 → ERHOLD 09:30 → ICUW 09:30 → MEDS 18:43 → ENPENDDIS 02-16 12:10 → MEDS 02-16 14:48
PROVIDERS: Emergency Medicine; ADMIT Internal Medicine
DX: I16.0 Hypertensive urgency (principal); E87.1 Hypo-osmolality and hyponatremia; N17.9 Acute kidney failure, unspecified; I12.9 Hypertensive chronic kidney disease with stage 1 through stage 4 chronic kidney disease, or unspecified chronic kidney disease; M81.0 Age-related osteoporosis without current pathological fracture; I48.91 Unspecified atrial fibrillation; I73.9 Peripheral vascular disease, unspecified; I25.10 Atherosclerotic heart disease of native coronary artery without angina pectoris; N18.2 Chronic kidney disease, stage 2 (mild); E03.9 Hypothyroidism, unspecified; Z85.41 Personal history of malignant neoplasm of cervix uteri; Z79.01 Long term (current) use of anticoagulants; Z86.73 Personal history of transient ischemic attack (TIA), and cerebral infarction without residual deficits; Z95.1 Presence of aortocoronary bypass graft; Z95.2 Presence of prosthetic heart valve; Z90.710 Acquired absence of both cervix and uterus; Z98.890 Other specified postprocedural states; Z87.891 Personal history of nicotine dependence; Z95.828 Presence of other vascular implants and grafts; Z28.89 Immunization not carried out for other reason
CPT/HCPCS: 36415; 71045; 80053; 82947; 83880; 84484; 85025; 85610; 85730; 93005; 93010; 96374; 96375; 99285-25; A9270; C9113; J7050

== ENCOUNTER 2021-03-04 04:03 | Emergency (ER) | payer MEDICARE, OTHER ==
[~2021-03-04] VITALS: Ht 165.1 cm; Wt 59.9 kg
[~2021-03-04 04:03] MED LIST changes: +AMLO5 PO; +WARF1 PO
[2021-03-04 04:34] LABS: BASOPHILS ABSOLUTE AUTO 0.02 K/mm3 (0.00-0.23); BASOPHILS PERCENT AUTO 0 % (0-2); EOSINOPHILS ABSOLUTE AUTO 0.18 K/mm3 (0.00-0.68); EOSINOPHILS PERCENT AUTO 3 % (0-6); Hematocrit 30.7 % (33.0-51.0); Hemoglobin 10.3 g/dL (11.5-16.0); IMMATURE GRAN ABSOLUTE AUTO 0.02 K/mm3 (0.00-0.10); IMMATURE GRAN PERCENT AUTO 0 % (0-1); LYMPHOCYTES ABSOLUTE AUTO 1.23 K/mm3 (0.84-5.20); LYMPHOCYTES PERCENT AUTO 19 % (21-46); MONOCYTES ABSOLUTE AUTO 0.63 K/mm3 (0.16-1.47); MONOCYTES PERCENT AUTO 10 % (4-13); Mean Corpuscular HGB 28.6 pg (26.0-34.0); Mean Corpuscular HGB Conc 33.6 g/dL (31.5-36.5); Mean Corpuscular Volume 85 fL (80-100); Mean Platelet Volume 8.8 fL (9.1-12.4); NEUTROPHILS ABSOLUTE AUTO 4.27 K/mm3 (1.96-9.15); NEUTROPHILS PERCENT AUTO 67 % (41-73); Platelet Count 265 K/mm3 (150-400); RDW Coefficient Variation 13.7 % (11.7-14.2); White Blood Cell Count 6.35 K/mm3 (4.00-11.30)
[2021-03-04 04:58] LABS: Alanine Aminotransfer (ALT/SGP 26 U/L (12-78); Albumin, Blood 3.7 g/dL (3.4-5.0); Albumin/Globulin Ratio 0.9 (0.8-1.8); Alk Phos 92 U/L (50-136); Anion Gap 9 mmol/L (6-16); Aspartate Aminotrans (AST/SGOT 17 U/L (12-37); Bilirubin, Total 0.5 mg/dL (0.1-1.0); Blood Urea Nitrogen 17 mg/dL (8-24); Bun/Creatinine Ratio 15.3 (12.0-20.0); CO2, Blood 24 mmol/L (21-32); Calcium, Blood 9.1 mg/dL (8.5-10.1); Chloride, Blood 98 mmol/L (98-108); Creatinine, Blood 1.11 mg/dL (0.40-1.00); Globulin, Blood 4.1 g/dL (2.2-4.0); Glomerular Filtration Rate 47 (60-); Glucose, Blood 99 mg/dL (70-99); Potassium, Blood 4.3 mmol/L (3.5-5.5); Sodium, Blood 131 mmol/L (136-145); Total Protein, Blood 7.8 g/dL (6.4-8.2); Troponin I <0.015 ng/mL (0.000-0.040)
== END 2021-03-04 06:09 | disposition home or self-care (01) ==
LOC: ER 04:03
PROVIDERS: Emergency Medicine
DX: I48.91 Unspecified atrial fibrillation (principal); I16.0 Hypertensive urgency; I10 Essential (primary) hypertension; E03.9 Hypothyroidism, unspecified; Z86.73 Personal history of transient ischemic attack (TIA), and cerebral infarction without residual deficits; Z87.891 Personal history of nicotine dependence; Z79.82 Long term (current) use of aspirin; Z79.01 Long term (current) use of anticoagulants; Z88.8 Allergy status to other drugs, medicaments and biological substances
CPT/HCPCS: 80053; 84484; 85025; 93005; 93010; 99284-25; J7030

== ENCOUNTER 2021-04-01 17:48 | Emergency (ER) | payer MEDICARE, OTHER ==
[~2021-04-01] VITALS: Ht 165.1 cm; Wt 60.3 kg
[2021-04-01 18:20] LABS: BASOPHILS ABSOLUTE AUTO 0.05 K/mm3 (0.00-0.23); BASOPHILS PERCENT AUTO 1 % (0-2); EOSINOPHILS ABSOLUTE AUTO 0.32 K/mm3 (0.00-0.68); EOSINOPHILS PERCENT AUTO 4 % (0-6); Hematocrit 30.9 % (33.0-51.0); Hemoglobin 10.2 g/dL (11.5-16.0); IMMATURE GRAN ABSOLUTE AUTO 0.03 K/mm3 (0.00-0.10); IMMATURE GRAN PERCENT AUTO 0 % (0-1); LYMPHOCYTES ABSOLUTE AUTO 1.89 K/mm3 (0.84-5.20); LYMPHOCYTES PERCENT AUTO 25 % (21-46); MONOCYTES ABSOLUTE AUTO 0.65 K/mm3 (0.16-1.47); MONOCYTES PERCENT AUTO 9 % (4-13); Mean Corpuscular HGB 28.5 pg (26.0-34.0); Mean Corpuscular Volume 86 fL (80-100); Mean Platelet Volume 9.1 fL (9.1-12.4); NEUTROPHILS ABSOLUTE AUTO 4.71 K/mm3 (1.96-9.15); NEUTROPHILS PERCENT AUTO 62 % (41-73); Platelet Count 297 K/mm3 (150-400); RDW Coefficient Variation 13.6 % (11.7-14.2); RDW Standard Deviation 42.5 fL (35.1-46.3); Red Blood Cell Count 3.58 M/mm3 (3.80-5.20); White Blood Cell Count 7.65 K/mm3 (4.00-11.30)
[2021-04-01 18:49] LABS: Troponin I <0.015 ng/mL (0.000-0.040)
[2021-04-01 18:50] LABS: Alanine Aminotransfer (ALT/SGP 140 U/L (12-78); Albumin, Blood 3.8 g/dL (3.4-5.0); Albumin/Globulin Ratio 1.1 (0.8-1.8); Alk Phos 126 U/L (50-136); Anion Gap 9 mmol/L (6-16); Aspartate Aminotrans (AST/SGOT 135 U/L (12-37); Bilirubin, Total 0.4 mg/dL (0.1-1.0); Blood Urea Nitrogen 21 mg/dL (8-24); Bun/Creatinine Ratio 16.5 (12.0-20.0); CO2, Blood 22 mmol/L (21-32); Calcium, Blood 8.9 mg/dL (8.5-10.1); Chloride, Blood 93 mmol/L (98-108); Creatinine, Blood 1.27 mg/dL (0.40-1.00); Globulin, Blood 3.6 g/dL (2.2-4.0); Glomerular Filtration Rate 40 (60-); Glucose, Blood 114 mg/dL (70-99); Potassium, Blood 4.6 mmol/L (3.5-5.5); Sodium, Blood 124 mmol/L (136-145); Total Protein, Blood 7.4 g/dL (6.4-8.2)
[2021-04-01 20:07] LABS: Source, Urine Clean Catch
[2021-04-01 20:31] LABS: Appearance, Urine Clear (Clear); Bilirubin, Urine Neg (Neg); Blood, Urine 2+ (Neg); Color, Urine Yellow (P-Yellow); Glucose Qualitative, Urine Neg (Neg); Ketones, Urine Neg (Neg); Leukocyte Esterase, Urine 3+ (Neg); Nitrite, Urine Neg (Neg); Protein, Urine 2+ (Neg); Urobilinogen, Urine NORM (Normal)
[2021-04-01 20:38] LABS: Amorphous Light (0-Heavy); Bacteria Few /hpf; Mucus Light (0-Heavy); Squamous Epithelial Cells Few /hpf (Few)
[2021-04-01 21:34] LABS: Prothrombin Time Results 40.7 Sec (9.7-11.5)
[2021-04-01 21:41] LABS: International Normalized Ratio 4.26
[2021-04-01] MEDS ORDERED: MELATONIN5 M1 PO (21:59)
[2021-04-01] MEDS ORDERED: CEPH500 PO (21:59)
== END 2021-04-01 22:24 | disposition home or self-care (01) ==
LOC: ER 17:48
PROVIDERS: Emergency Medicine; Physician Assistant
DX: E87.1 Hypo-osmolality and hyponatremia (principal); R79.1 Abnormal coagulation profile; N39.0 Urinary tract infection, site not specified; R40.4 Transient alteration of awareness; I10 Essential (primary) hypertension; I48.91 Unspecified atrial fibrillation; E03.9 Hypothyroidism, unspecified; Z88.8 Allergy status to other drugs, medicaments and biological substances; Z79.899 Other long term (current) drug therapy; Z79.82 Long term (current) use of aspirin; Z79.01 Long term (current) use of anticoagulants; Z87.891 Personal history of nicotine dependence
CPT/HCPCS: 36415; 70450; 71046; 80053; 81001; 83690; 84484; 85025; 85610; 87086; 93005; 93010; 99284-25; A9270; J7030

== ENCOUNTER 2021-04-11 18:12 | Inpatient (IN) | payer MEDICARE, OTHER ==
[~2021-04-11] VITALS: Ht 165.1 cm; Wt 63.2 kg
[~2021-04-11 18:12] MED LIST changes: +MELATONIN5 M1 PO; -WARF1 PO
[2021-04-11 18:58] LABS: BASOPHILS ABSOLUTE AUTO 0.06 K/mm3 (0.00-0.23); BASOPHILS PERCENT AUTO 1 % (0-2); EOSINOPHILS ABSOLUTE AUTO 0.34 K/mm3 (0.00-0.68); EOSINOPHILS PERCENT AUTO 5 % (0-6); Hematocrit 31.7 % (33.0-51.0); Hemoglobin 10.3 g/dL (11.5-16.0); IMMATURE GRAN ABSOLUTE AUTO 0.02 K/mm3 (0.00-0.10); IMMATURE GRAN PERCENT AUTO 0 % (0-1); LYMPHOCYTES ABSOLUTE AUTO 1.99 K/mm3 (0.84-5.20); LYMPHOCYTES PERCENT AUTO 29 % (21-46); MONOCYTES ABSOLUTE AUTO 0.73 K/mm3 (0.16-1.47); MONOCYTES PERCENT AUTO 11 % (4-13); Mean Corpuscular HGB Conc 32.5 g/dL (31.5-36.5); Mean Corpuscular Volume 86 fL (80-100); Mean Platelet Volume 8.9 fL (9.1-12.4); NEUTROPHILS ABSOLUTE AUTO 3.69 K/mm3 (1.96-9.15); NEUTROPHILS PERCENT AUTO 54 % (41-73); Platelet Count 327 K/mm3 (150-400); RDW Coefficient Variation 13.4 % (11.7-14.2); RDW Standard Deviation 42.6 fL (35.1-46.3); Red Blood Cell Count 3.68 M/mm3 (3.80-5.20); White Blood Cell Count 6.83 K/mm3 (4.00-11.30)
[2021-04-11 19:16] LABS: International Normalized Ratio 3.88; Prothrombin Time Results 37.3 Sec (9.7-11.5)
[2021-04-11 19:22] LABS: Alanine Aminotransfer (ALT/SGP 35 U/L (12-78); Albumin, Blood 3.6 g/dL (3.4-5.0); Albumin/Globulin Ratio 0.8 (0.8-1.8); Alk Phos 103 U/L (50-136); Anion Gap 6 mmol/L (6-16); Aspartate Aminotrans (AST/SGOT 19 U/L (12-37); Bilirubin, Total 0.4 mg/dL (0.1-1.0); Blood Urea Nitrogen 15 mg/dL (8-24); Bun/Creatinine Ratio 13.6 (12.0-20.0); CO2, Blood 24 mmol/L (21-32); Calcium, Blood 8.6 mg/dL (8.5-10.1); Chloride, Blood 94 mmol/L (98-108); Globulin, Blood 4.3 g/dL (2.2-4.0); Glomerular Filtration Rate 48 (60-); Glucose, Blood 121 mg/dL (70-99); Potassium, Blood 4.4 mmol/L (3.5-5.5); Sodium, Blood 124 mmol/L (136-145); Total Protein, Blood 7.9 g/dL (6.4-8.2); Troponin I <0.015 ng/mL (0.000-0.040)
[2021-04-11] MEDS ORDERED: FAMO20 PO (23:39)
--- NOTE | 2021-04-12 03:29 | NUR ---
SHIFT SUMMARY RECIEVED REPORT FROM DARIANA BERNARDO, ED @ 5274. ARRIVED TO MEDICAL FLOOR @ 0001. ORIENTED TO ROOM AND CALL SYSTEM. A/O, ABLE TO MAKE NEEDS KNOWN. COOPERATIVE WITH CARE. ANSWERS QUESTIONS APPROPRIATELY. UP INDEPENDENTLY TO BATHROOM; STEADY GAIT NOTED. NO C/O PAIN/PRESSURE SINCE ARRIVAL TO UNIT. TELE RUNNING AFIB IN 70s PER CAMPUS POLICE OFFICER. PREVIOUS HX OF AFIB PER H & P. ON COUMADIN. NO ACUTE CHANGES NOTED. BED REMAINS IN LOWEST POSITION. CALL LIGHT AND BELONGINGS WITHIN REACH. REPORT TO BOB BERNARDO.
[2021-04-12 05:15] LABS: International Normalized Ratio 3.77; Prothrombin Time Results 36.3 Sec (9.7-11.5)
[2021-04-12 05:29] LABS: Bun/Creatinine Ratio 14.5 (12.0-20.0); Calcium, Blood 8.9 mg/dL (8.5-10.1); Creatinine, Blood 0.97 mg/dL (0.40-1.00); Potassium, Blood 4.7 mmol/L (3.5-5.5)
[2021-04-12 05:50] LABS: Troponin I 0.824 ng/mL (0.000-0.040)
--- NOTE | 2021-04-12 06:00 | NUR ---
ONCALL PROVIDER NOTIFIED OF INCREASED TROPONIN FROM 0.116 TO CRITICAL @ 0.824. STATED AT FIRST TO PLACE ON HEPARIN DRIP, NPO AND CARDIAC CONSULT. THEN EXPLAINED CARDIAC HX. PATIENT HAS AFIB AND IS ON COUMADIN. PHYSICIAN CURIOUS OF INR. STATES NO NEED FOR HEPARIN DRIP. DOES STILL WANT A CARDIOLOGY CONSULT.
--- NOTE | 2021-04-12 14:37 | NUR ---
NEW MED PT REPORTS DR. YOU STARTED HER ON A NEW MED. CALLED [facility] AND CONFIRMED NEW MEDICATION WAS FAMOTIDINE 20MG BID.
--- NOTE | 2021-04-12 18:29 | NUR ---
SHIFT SUMMARY 80 Y F ADMITTED WITH ACUTE CORONARY SYNDROME. PT HAS BEEN A&O, UP IND AND RESTING COMFORTABLY IN BED READING T/O THE DAY. MONITORING LABS CLOSELY AND TROPONIN DECREASED FROM 0.824 THIS AM TO 0.648. PT DID C/O C/P AND RACING HEART THIS AFTERNOON, BP CHECKED TO BE 182/94 THEN RECHECKED MINUTES LATER AND WAS 152/85 PT REPORTED SYMPTOMS HAD RESOLVED. DR. MONROE NOTIFIED, NO NEW ORDERS AT THAT TIME. CARDIOLOGY CONSULT PENDING, STRESS TEST SCHEDULED FOR TOMORROW AND PT TO BE NPO AFTER MN. DISCUSSED PLANS WITH PT AND SHE VERBALIZED UNDERSTANDING. NO OTHER CHANGES TO REPORT
--- NOTE | 2021-04-13 04:54 | NUR ---
SHIFT SUMMARY PT HAD A MOSTLY UNEVENTFUL NIGHT. HAD ONE EPISODE WHERE HER HEART RIGHT WENT DOWN INTO THE 40'S BRIEFLY WHILE SLEEPING. RETURNED TO THE 80'S ONCE WOKEN. REMAINED AFIB. ASYMPTOMATIC. STAYED UP IN THE 80'S THE REST OF THE NIGHT. NO COMPLAINTS OF CHEST PAIN OR SOB. NPO SINCE MIDNIGHT FOR STRESS TEST TODAY EXCEPT PT DID RECIEVE AM SYNTHROID. VITAL SIGNS STABLE. NO ACUTE CHANGES THIS EVENING.
[2021-04-13 05:41] LABS: International Normalized Ratio 2.36; Prothrombin Time Results 23.4 Sec (9.7-11.5)
[2021-04-13 06:08] LABS: Bun/Creatinine Ratio 15.1 (12.0-20.0); Calcium, Blood 9.5 mg/dL (8.5-10.1); Creatinine, Blood 1.26 mg/dL (0.40-1.00); Potassium, Blood 4.1 mmol/L (3.5-5.5)
--- NOTE | 2021-04-13 06:34 | NUR ---
PT REPORTING THAT SHE FEELS IF SHE IS GETTING A UTI AND STATES THAT SHE HAS SOME BLOOD WITH WIPING THIS AM. WILL PASS ON TO DAY SHIFT RN.
--- NOTE | 2021-04-13 08:31 | NUR ---
Echocardiogram using 0.50ml pf Definity contrast performed.
[2021-04-13 09:54] LABS: Source, Urine Clean Catch
[2021-04-13 10:27] LABS: Appearance, Urine Turbid (Clear); Bilirubin, Urine Neg (Neg); Blood, Urine 5+ (Neg); Color, Urine Yellow (P-Yellow); Glucose Qualitative, Urine Neg (Neg); Ketones, Urine Neg (Neg); Leukocyte Esterase, Urine 3+ (Neg); Nitrite, Urine Neg (Neg); Protein, Urine 3+ (Neg); Specific Gravity, Urine 1.025 (1.003-1.022); Urobilinogen, Urine NORM (Normal)
[2021-04-13 11:37] LABS: Bacteria Many /hpf; Red Blood Cells, Urine 50-100 /hpf (0-2); Squamous Epithelial Cells Few /hpf (Few)
[2021-04-13 11:38] LABS: Amorphous Light (0-Heavy); Mucus Light (0-Heavy)
--- NOTE | 2021-04-13 17:04 | NUR ---
SHIFT SUMMARY 80 Y F ADMITTED WITH ACUTE CORONARY SYNDROME. PT HAS BEEN A&O, UP IND AND RESTING COMFORTABLY IN BED READING T/O THE DAY. ECHO AND STRESS TEST SCHEDULED COMPLETED AND PENDING REVIEW FROM MD/CARDIOLOGY. NO OTHER CHANGES TO REPORT THIS SHIFT.
--- NOTE | 2021-04-14 04:19 | NUR ---
SHIFT SUMMARY ADMITTED FOR [facility]. FULL CODE. SHE IS HOPEFUL FOR DC TODAY. TELEMETRY: JUNCTIONAL W/ PAC'S @ 57 BPM, NO EVENTS REPORTED THIS SHIFT. SHE IS INDEPENDENT IN ROOM, A&O X4. SHE DENIES PAIN THIS SHIFT.
[2021-04-14 05:10] LABS: International Normalized Ratio 2.05; Prothrombin Time Results 20.5 Sec (9.7-11.5)
[2021-04-14 05:54] LABS: Calcium, Blood 8.8 mg/dL (8.5-10.1); Creatinine, Blood 1.27 mg/dL (0.40-1.00)
[2021-04-14] MEDS ORDERED: Prinivil10 MG PO (14:17)
[2021-04-14] MEDS ORDERED: VISBIOME 112.51 EACH PO (14:18)
[2021-04-14] MEDS ORDERED: LEVFLO500 PO (14:21)
--- NOTE | 2021-04-14 14:57 | NUR ---
DISCHARGE DISCHARGE INSTRUCTIONS, MEDICATION LIST AND FOLLOW UP APPOINTMENT REVIEWED WITH PT. PT VERBALLY INDICATED UNDERSTANDING OF ALL INSTRUCTIONS RECEVIED. ESCORTED OUT VIA W/C BY ANTONIETTA
== END 2021-04-14 14:46 | disposition home or self-care (01) | DRG 311 ==
LOC: ER 18:12 → MEDS 18:13
PROVIDERS: Hospitalist; Physician Assistant; ADMIT Hospitalist
DX: I24.9 Acute ischemic heart disease, unspecified (principal); E87.1 Hypo-osmolality and hyponatremia; I13.0 Hypertensive heart and chronic kidney disease with heart failure and stage 1 through stage 4 chronic kidney disease, or unspecified chronic kidney disease; J81.1 Chronic pulmonary edema; N18.31 Chronic kidney disease, stage 3a; Z95.1 Presence of aortocoronary bypass graft; I25.10 Atherosclerotic heart disease of native coronary artery without angina pectoris; Z09 Encounter for follow-up examination after completed treatment for conditions other than malignant neoplasm; Z86.73 Personal history of transient ischemic attack (TIA), and cerebral infarction without residual deficits; I48.91 Unspecified atrial fibrillation; E03.9 Hypothyroidism, unspecified; I73.9 Peripheral vascular disease, unspecified; M81.0 Age-related osteoporosis without current pathological fracture; Z85.41 Personal history of malignant neoplasm of cervix uteri; Z90.710 Acquired absence of both cervix and uterus; Z98.890 Other specified postprocedural states; Z79.899 Other long term (current) drug therapy; Z79.82 Long term (current) use of aspirin; Z79.01 Long term (current) use of anticoagulants; Z88.8 Allergy status to other drugs, medicaments and biological substances; D63.1 Anemia in chronic kidney disease; I50.9 Heart failure, unspecified
CPT/HCPCS: 36415; 71046; 78452; 80048; 80053; 81001; 83690; 83880; 84484; 85025; 85610; 87086; 87147; 93005; 93010; 93017; 99285-25; A9270; A9500; C8929; G0378; J0696; J0706; J1940; J2785; J7040; Q9957

== ENCOUNTER → 2021-05-02 | Outpatient (CLI) | payer MEDICARE, OTHER ==
[~2021-05-02] MED LIST changes: +FAMO20 PO; +LEVFLO500 PO; +VISBIOME 112.51 EACH PO
== END | disposition home or self-care (01) ==
LOC: LAB SHORT 15:53
DX: N39.0 Urinary tract infection, site not specified (principal)
CPT/HCPCS: 87086

== ENCOUNTER 2021-06-15 02:05 | Emergency (ER) | payer MEDICARE, OTHER ==
[~2021-06-15] VITALS: Ht 165.1 cm; Wt 59.4 kg
[2021-06-15 02:50] LABS: Source, Urine Clean Catch
[2021-06-15 02:53] LABS: Appearance, Urine Cloudy (Clear); Bilirubin, Urine Neg (Neg); Blood, Urine 5+ (Neg); Color, Urine Red (P-Yellow); Glucose Qualitative, Urine Neg (Neg); Ketones, Urine 1+ (Neg); Leukocyte Esterase, Urine 2+ (Neg); Nitrite, Urine Neg (Neg); Protein, Urine 3+ (Neg); Urobilinogen, Urine NORM (Normal)
[2021-06-15 03:03] LABS: Bacteria Few /hpf; Red Blood Cells, Urine TNTC /hpf (0-2); Squamous Epithelial Cells Not Seen /hpf (Few)
[2021-06-15 06:08] LABS: BASOPHILS ABSOLUTE AUTO 0.04 K/mm3 (0.00-0.23); BASOPHILS PERCENT AUTO 1 % (0-2); EOSINOPHILS PERCENT AUTO 2 % (0-6); Hematocrit 35.5 % (33.0-51.0); Hemoglobin 11.6 g/dL (11.5-16.0); IMMATURE GRAN ABSOLUTE AUTO 0.02 K/mm3 (0.00-0.10); IMMATURE GRAN PERCENT AUTO 0 % (0-1); LYMPHOCYTES ABSOLUTE AUTO 1.05 K/mm3 (0.84-5.20); LYMPHOCYTES PERCENT AUTO 16 % (21-46); MONOCYTES ABSOLUTE AUTO 0.45 K/mm3 (0.16-1.47); MONOCYTES PERCENT AUTO 7 % (4-13); Mean Corpuscular HGB Conc 32.7 g/dL (31.5-36.5); Mean Corpuscular Volume 83 fL (80-100); NEUTROPHILS ABSOLUTE AUTO 4.88 K/mm3 (1.96-9.15); NEUTROPHILS PERCENT AUTO 75 % (41-73); Platelet Count 302 K/mm3 (150-400); RDW Coefficient Variation 14.1 % (11.7-14.2); RDW Standard Deviation 42.7 fL (35.1-46.3); Red Blood Cell Count 4.29 M/mm3 (3.80-5.20); White Blood Cell Count 6.54 K/mm3 (4.00-11.30)
[2021-06-15 06:25] LABS: Bun/Creatinine Ratio 11.9 (12.0-20.0); Creatinine, Blood 1.01 mg/dL (0.40-1.00); Potassium, Blood 4.3 mmol/L (3.5-5.5)
[2021-06-15] MEDS ORDERED: CEFD300 PO (07:33)
[2021-06-15 08:16] LABS: International Normalized Ratio 2.19; Prothrombin Time Results 21.8 Sec (9.7-11.5)
== END 2021-06-15 09:24 | disposition home or self-care (01) ==
LOC: ER 02:05
PROVIDERS: Student in an Organized Health Care Education/Training Program
DX: N39.0 Urinary tract infection, site not specified (principal); Z79.899 Other long term (current) drug therapy; Z79.01 Long term (current) use of anticoagulants; Z79.82 Long term (current) use of aspirin; Z88.8 Allergy status to other drugs, medicaments and biological substances; I10 Essential (primary) hypertension; I48.91 Unspecified atrial fibrillation; E03.9 Hypothyroidism, unspecified; Z87.891 Personal history of nicotine dependence
CPT/HCPCS: 74177; 80048; 81001; 85025; 85610; 87086; 96374; 99284-25; J0696; Q9967

== ENCOUNTER 2021-06-17 18:21 | Observation (INO) | payer MEDICARE, OTHER ==
[~2021-06-17] VITALS: Ht 165.1 cm; Wt 59.5 kg
[~2021-06-17 18:21] MED LIST changes: -JANTOVEN6 MG PO
[2021-06-17 18:54] LABS: BASOPHILS ABSOLUTE AUTO 0.05 K/mm3 (0.00-0.23); BASOPHILS PERCENT AUTO 1 % (0-2); EOSINOPHILS ABSOLUTE AUTO 0.13 K/mm3 (0.00-0.68); EOSINOPHILS PERCENT AUTO 2 % (0-6); Hematocrit 34.2 % (33.0-51.0); IMMATURE GRAN ABSOLUTE AUTO 0.03 K/mm3 (0.00-0.10); IMMATURE GRAN PERCENT AUTO 0 % (0-1); LYMPHOCYTES ABSOLUTE AUTO 1.45 K/mm3 (0.84-5.20); LYMPHOCYTES PERCENT AUTO 18 % (21-46); MONOCYTES ABSOLUTE AUTO 0.98 K/mm3 (0.16-1.47); MONOCYTES PERCENT AUTO 12 % (4-13); Mean Corpuscular HGB 26.7 pg (26.0-34.0); Mean Corpuscular HGB Conc 32.2 g/dL (31.5-36.5); Mean Corpuscular Volume 83 fL (80-100); Mean Platelet Volume 8.8 fL (9.1-12.4); NEUTROPHILS ABSOLUTE AUTO 5.64 K/mm3 (1.96-9.15); NEUTROPHILS PERCENT AUTO 68 % (41-73); NRBC ABSOLUTE 0.02 K/mm3 (0.00-0.02); NRBC Auto 0.2 /100 WBC (0.0-0.2); Platelet Count 321 K/mm3 (150-400); RDW Coefficient Variation 14.1 % (11.7-14.2); RDW Standard Deviation 42.8 fL (35.1-46.3); Red Blood Cell Count 4.12 M/mm3 (3.80-5.20); White Blood Cell Count 8.28 K/mm3 (4.00-11.30)
[2021-06-17 19:37] LABS: Albumin/Globulin Ratio 0.8 (0.8-1.8); Bilirubin, Total 0.7 mg/dL (0.1-1.0); Bun/Creatinine Ratio 15.2 (12.0-20.0); Creatinine, Blood 1.12 mg/dL (0.40-1.00); Globulin, Blood 4.8 g/dL (2.2-4.0); Potassium, Blood 4.6 mmol/L (3.5-5.5); Total Protein, Blood 8.8 g/dL (6.4-8.2)
[2021-06-17] MEDS ORDERED: JANTOVEN6 MG PO (22:42)
[2021-06-17 22:45] LABS: Bun/Creatinine Ratio 15.5 (12.0-20.0); Calcium, Blood 9.2 mg/dL (8.5-10.1); Creatinine, Blood 0.97 mg/dL (0.40-1.00); Potassium, Blood 4.2 mmol/L (3.5-5.5)
--- NOTE | 2021-06-17 23:55 | NUR ---
6493 PT ARRIVED TO ROOM FROM ER VIA GURRAFAEL IN STABLE CONDITION. DENIES ANY DISCOMFORT BUT REQUESTED AND RECIEVED TYLENOL R/T SHE THINKS SHE FEELS LIKE A HEADACHE MIGHT BE COMING ON R/T STRESS. WILL EVAL FOR EFFECT. SCD'S PLACED ON. TELE ORDERED BUT NOT HERE YET, WILL PLACE ON AND GET RYTHYM FROM LOCK MAINTENANCE SUPERVISOR WHEN IT ARRIVES. NO OTHER APPARENT SIGNS OF DISTRESS. CALL LIGHT IS IN REACH.
--- NOTE | 2021-06-18 00:36 | NUR ---
TELE ARRIVED AND PLACED ON PT, PER TELE SHOT GRINDER OPERATOR IT IS NSR AT 75. PT DENIES NEED FOR ANYTHING AT THIS TIME. NO APPARENT SIGNS OF DISTRESS. CALL LIGHT IS IN REACH.
--- NOTE | 2021-06-18 03:59 | NUR ---
PT LYING IN BED, EYES CLOSED, APPEARS TO BE RESTING. BREATHING IS EVEN, UNLABORED. NO APPARENT SIGNS OF DISTRESS. CALL LIGHT IS IN REACH.
--- NOTE | 2021-06-18 03:59 | NUR ---
PT IS AAO X 4, ON RA. TELE NSR TO AFIB, HX OF AFIB. NO DISCOMFORT FOR THIS SHIFT.
--- NOTE | 2021-06-18 03:59 | NUR ---
0200 PT LYING IN BED, EYES CLOSED, APPEARS TO BE RESTING. BREATHING IS EVEN, UNLABORED. NO APPARENT SIGNS OF DISTRESS. CALL LIGHT IS IN REACH.
[2021-06-18 05:13] LABS: BASOPHILS ABSOLUTE AUTO 0.05 K/mm3 (0.00-0.23); BASOPHILS PERCENT AUTO 1 % (0-2); EOSINOPHILS ABSOLUTE AUTO 0.12 K/mm3 (0.00-0.68); EOSINOPHILS PERCENT AUTO 2 % (0-6); Hematocrit 35.5 % (33.0-51.0); Hemoglobin 11.6 g/dL (11.5-16.0); IMMATURE GRAN ABSOLUTE AUTO 0.02 K/mm3 (0.00-0.10); IMMATURE GRAN PERCENT AUTO 0 % (0-1); LYMPHOCYTES PERCENT AUTO 18 % (21-46); MONOCYTES ABSOLUTE AUTO 0.69 K/mm3 (0.16-1.47); MONOCYTES PERCENT AUTO 10 % (4-13); Mean Corpuscular HGB 26.6 pg (26.0-34.0); Mean Corpuscular HGB Conc 32.7 g/dL (31.5-36.5); Mean Corpuscular Volume 81 fL (80-100); Mean Platelet Volume 8.9 fL (9.1-12.4); NEUTROPHILS ABSOLUTE AUTO 4.91 K/mm3 (1.96-9.15); NEUTROPHILS PERCENT AUTO 69 % (41-73); Platelet Count 302 K/mm3 (150-400); RDW Coefficient Variation 14.1 % (11.7-14.2); RDW Standard Deviation 41.5 fL (35.1-46.3); Red Blood Cell Count 4.36 M/mm3 (3.80-5.20); White Blood Cell Count 7.09 K/mm3 (4.00-11.30)
[2021-06-18 05:26] LABS: International Normalized Ratio 1.95; Prothrombin Time Results 19.6 Sec (9.7-11.5)
--- NOTE | 2021-06-18 05:34 | NUR ---
PT LYING IN BED, AWAKE, READING A BOOK. NO APPARENT SIGNS OF DISTRESS. CALL LIGHT IS IN REACH. NO OTHER CHANGES THIS SHIFT.
[2021-06-18 06:01] LABS: Albumin, Blood 3.9 g/dL (3.4-5.0); Albumin/Globulin Ratio 0.9 (0.8-1.8); Bilirubin, Total 0.7 mg/dL (0.1-1.0); Bun/Creatinine Ratio 13.2 (12.0-20.0); Creatinine, Blood 0.91 mg/dL (0.40-1.00); Globulin, Blood 4.4 g/dL (2.2-4.0); Potassium, Blood 3.9 mmol/L (3.5-5.5); Thyroid Stimulating Hormone 4.68 uIU/mL (0.360-4.800); Total Protein, Blood 8.3 g/dL (6.4-8.2)
--- NOTE | 2021-06-18 15:55 | NUR ---
DISCHARGE SUMMARY DISCHARGE INSTRUCTIONS REVIEWED WITH PATIENT. INSTRUCTED PATIENT TO FOLLOW UP WITH PCP TOMORROW 06/19. PT UNDERSTANDS ALL DISCHARGE INSTRUCTIONS. ALL QUESTIONS ANSWERED. PT WHEEELED OUT BY WHEELCHAIR BY PIN STICKER.
== END 2021-06-18 15:49 | disposition home or self-care (01) ==
LOC: ER 18:21 → MEDS 18:22
PROVIDERS: Family Medicine; Physician Assistant; ADMIT Internal Medicine
DX: E87.1 Hypo-osmolality and hyponatremia (principal); R07.89 Other chest pain; I48.91 Unspecified atrial fibrillation; I12.9 Hypertensive chronic kidney disease with stage 1 through stage 4 chronic kidney disease, or unspecified chronic kidney disease; N18.31 Chronic kidney disease, stage 3a; K21.9 Gastro-esophageal reflux disease without esophagitis; N39.0 Urinary tract infection, site not specified; I25.10 Atherosclerotic heart disease of native coronary artery without angina pectoris; Z95.1 Presence of aortocoronary bypass graft; Z91.048 Other nonmedicinal substance allergy status
CPT/HCPCS: 36415; 71045; 80048; 80053; 83690; 83880; 83935; 84300; 84443; 84484; 85025; 85610; 93005; 93010; 96374; 99285-25; A9270; G0378; J0360; J7030

== ENCOUNTER → 2021-06-17 | Outpatient (CLI) | payer MEDICARE, OTHER ==
[~2021-06-17] MED LIST changes: +CEFD300 PO; +JANTOVEN6 MG PO
[2021-06-17 13:50] LABS: BASOPHILS ABSOLUTE AUTO 0.05 K/mm3 (0.00-0.23); BASOPHILS PERCENT AUTO 1 % (0-2); EOSINOPHILS ABSOLUTE AUTO 0.12 K/mm3 (0.00-0.68); EOSINOPHILS PERCENT AUTO 2 % (0-6); Hematocrit 35.6 % (33.0-51.0); Hemoglobin 11.7 g/dL (11.5-16.0); IMMATURE GRAN ABSOLUTE AUTO 0.02 K/mm3 (0.00-0.10); IMMATURE GRAN PERCENT AUTO 0 % (0-1); LYMPHOCYTES ABSOLUTE AUTO 1.32 K/mm3 (0.84-5.20); LYMPHOCYTES PERCENT AUTO 21 % (21-46); MONOCYTES ABSOLUTE AUTO 0.51 K/mm3 (0.16-1.47); MONOCYTES PERCENT AUTO 8 % (4-13); Mean Corpuscular HGB 26.8 pg (26.0-34.0); Mean Corpuscular HGB Conc 32.9 g/dL (31.5-36.5); Mean Corpuscular Volume 82 fL (80-100); Mean Platelet Volume 8.8 fL (9.1-12.4); NEUTROPHILS ABSOLUTE AUTO 4.24 K/mm3 (1.96-9.15); NEUTROPHILS PERCENT AUTO 68 % (41-73); Platelet Count 303 K/mm3 (150-400); RDW Coefficient Variation 14.3 % (11.7-14.2); Red Blood Cell Count 4.37 M/mm3 (3.80-5.20); White Blood Cell Count 6.26 K/mm3 (4.00-11.30)
[2021-06-17 14:05] LABS: Albumin, Blood 4.7 g/dL (3.4-5.0); Albumin/Globulin Ratio 1.1 (0.8-1.8); Bilirubin, Total 0.8 mg/dL (0.1-1.0); Bun/Creatinine Ratio 13.8 (12.0-20.0); Creatinine, Blood 1.16 mg/dL (0.40-1.00); Globulin, Blood 4.1 g/dL (2.2-4.0); Potassium, Blood 4.6 mmol/L (3.5-5.5); Total Protein, Blood 8.8 g/dL (6.4-8.2)
== END ==
LOC: LAB SHORT 13:46
PROVIDERS: Physician Assistant
DX: R00.2 Palpitations (principal)
CPT/HCPCS: 80053; 83880; 84484; 85025

== ENCOUNTER 2021-06-20 23:23 | Observation (INO) | payer MEDICARE, OTHER ==
[~2021-06-20] VITALS: Ht 165.1 cm; Wt 58.2 kg
[~2021-06-20 23:23] MED LIST changes: +JANTOVEN6 MG PO; +ZESTRIL40 M1 PO
[2021-06-20 23:55] LABS: BASOPHILS ABSOLUTE AUTO 0.05 K/mm3 (0.00-0.23); BASOPHILS PERCENT AUTO 1 % (0-2); EOSINOPHILS ABSOLUTE AUTO 0.19 K/mm3 (0.00-0.68); EOSINOPHILS PERCENT AUTO 3 % (0-6); Hematocrit 32.2 % (33.0-51.0); Hemoglobin 10.5 g/dL (11.5-16.0); IMMATURE GRAN ABSOLUTE AUTO 0.01 K/mm3 (0.00-0.10); IMMATURE GRAN PERCENT AUTO 0 % (0-1); LYMPHOCYTES ABSOLUTE AUTO 2.05 K/mm3 (0.84-5.20); LYMPHOCYTES PERCENT AUTO 34 % (21-46); MONOCYTES ABSOLUTE AUTO 0.65 K/mm3 (0.16-1.47); MONOCYTES PERCENT AUTO 11 % (4-13); Mean Corpuscular HGB 26.7 pg (26.0-34.0); Mean Corpuscular HGB Conc 32.6 g/dL (31.5-36.5); Mean Corpuscular Volume 82 fL (80-100); Mean Platelet Volume 8.7 fL (9.1-12.4); NEUTROPHILS ABSOLUTE AUTO 3.06 K/mm3 (1.96-9.15); NEUTROPHILS PERCENT AUTO 51 % (41-73); Platelet Count 310 K/mm3 (150-400); RDW Coefficient Variation 14.4 % (11.7-14.2); RDW Standard Deviation 43.4 fL (35.1-46.3); Red Blood Cell Count 3.93 M/mm3 (3.80-5.20); White Blood Cell Count 6.01 K/mm3 (4.00-11.30)
[2021-06-21 00:14] LABS: Albumin, Blood 3.9 g/dL (3.4-5.0); Bilirubin, Total 0.5 mg/dL (0.1-1.0); Bun/Creatinine Ratio 14.4 (12.0-20.0); Calcium, Blood 9.1 mg/dL (8.5-10.1); Creatinine, Blood 1.04 mg/dL (0.40-1.00); Globulin, Blood 3.9 g/dL (2.2-4.0); Total Protein, Blood 7.8 g/dL (6.4-8.2)
[2021-06-21 07:01] LABS: International Normalized Ratio 2.49; Prothrombin Time Results 24.6 Sec (9.7-11.5)
--- NOTE | 2021-06-21 17:17 | NUR ---
SHIFT SUMMARY PATIENT DENIES CHEST PAIN, NAUSEA, AND SHORTNESS OF BREATH. PATIENT IS IND IN ROOM. PATIENT DID REPORT SOME TIGHTNESS IN THE BACK OF HER HEAD, THIS SUBSIDED WITHIN [address] TRAN NOTIFIED. CARDIO CONSULTED TODAY. NEW ORDERS FOR CARDIAC DIET. PATIENT EATING AND DRINKING WELL. PATIENT IS PLEASANT AND COOPERATIVE WITH CARE.
--- NOTE | 2021-06-22 04:22 | NUR ---
CARD READER SUMMARY PATIENT HAD A FAIR SHIFT. NO COMPLAINTS OVERNIGHT. HE V/S ARE STABLE. SHE IS ALERT NAD ORIENTED. WILL CONTINUE TO MONITOR HER.
[2021-06-22 05:10] LABS: BASOPHILS ABSOLUTE AUTO 0.04 K/mm3 (0.00-0.23); BASOPHILS PERCENT AUTO 1 % (0-2); EOSINOPHILS ABSOLUTE AUTO 0.11 K/mm3 (0.00-0.68); EOSINOPHILS PERCENT AUTO 2 % (0-6); Hematocrit 34.6 % (33.0-51.0); Hemoglobin 11.4 g/dL (11.5-16.0); IMMATURE GRAN ABSOLUTE AUTO 0.02 K/mm3 (0.00-0.10); IMMATURE GRAN PERCENT AUTO 0 % (0-1); LYMPHOCYTES ABSOLUTE AUTO 1.35 K/mm3 (0.84-5.20); LYMPHOCYTES PERCENT AUTO 23 % (21-46); MONOCYTES ABSOLUTE AUTO 0.61 K/mm3 (0.16-1.47); MONOCYTES PERCENT AUTO 10 % (4-13); Mean Corpuscular HGB 26.7 pg (26.0-34.0); Mean Corpuscular HGB Conc 32.9 g/dL (31.5-36.5); Mean Corpuscular Volume 81 fL (80-100); Mean Platelet Volume 8.9 fL (9.1-12.4); NEUTROPHILS ABSOLUTE AUTO 3.75 K/mm3 (1.96-9.15); NEUTROPHILS PERCENT AUTO 64 % (41-73); Platelet Count 304 K/mm3 (150-400); RDW Coefficient Variation 14.5 % (11.7-14.2); RDW Standard Deviation 42.3 fL (35.1-46.3); Red Blood Cell Count 4.27 M/mm3 (3.80-5.20); White Blood Cell Count 5.88 K/mm3 (4.00-11.30)
[2021-06-22 05:37] LABS: Albumin, Blood 3.9 g/dL (3.4-5.0); Bilirubin, Total 0.8 mg/dL (0.1-1.0); Bun/Creatinine Ratio 10.9 (12.0-20.0); Calcium, Blood 9.5 mg/dL (8.5-10.1); Creatinine, Blood 1.1 mg/dL (0.40-1.00); Globulin, Blood 4.1 g/dL (2.2-4.0); Potassium, Blood 4.3 mmol/L (3.5-5.5)
[2021-06-22 05:39] LABS: International Normalized Ratio 2.09; Prothrombin Time Results 20.9 Sec (9.7-11.5)
--- NOTE | 2021-06-22 15:35 | NUR ---
PT D/C'D, IV REMOVED
== END 2021-06-22 15:32 | disposition home or self-care (01) ==
LOC: ER 23:23 → MEDS 23:24 → ENPENDDIS 06-22 13:54 → MEDS 06-22 15:32
PROVIDERS: Family Medicine; Student in an Organized Health Care Education/Training Program; ADMIT Internal Medicine
DX: R07.89 Other chest pain (principal); I16.1 Hypertensive emergency; I48.20 Chronic atrial fibrillation, unspecified; E87.1 Hypo-osmolality and hyponatremia; I25.10 Atherosclerotic heart disease of native coronary artery without angina pectoris; I12.9 Hypertensive chronic kidney disease with stage 1 through stage 4 chronic kidney disease, or unspecified chronic kidney disease; N18.31 Chronic kidney disease, stage 3a; K21.9 Gastro-esophageal reflux disease without esophagitis; E03.9 Hypothyroidism, unspecified; I25.2 Old myocardial infarction; Z87.891 Personal history of nicotine dependence; Z95.1 Presence of aortocoronary bypass graft; Z95.2 Presence of prosthetic heart valve; Z79.01 Long term (current) use of anticoagulants; Z79.82 Long term (current) use of aspirin
CPT/HCPCS: 36415; 71046; 80053; 84484; 85025; 85610; 93005; 93010; 96374; 99285-25; A9270; G0378; J0360

== ENCOUNTER → 2021-08-06 | Outpatient (CLI) | payer MEDICARE, OTHER | END | disposition home or self-care (01) | LOC: LAB SHORT 11:33 → LAB 11:33 | DX: N39.0 Urinary tract infection, site not specified (principal) | CPT/HCPCS: 87086 ==

== ENCOUNTER 2021-08-16 07:43 | Inpatient (IN) | payer MEDICARE, OTHER ==
[~2021-08-16] VITALS: Ht 165.1 cm; Wt 62.0 kg
[~2021-08-16 07:43] MED LIST changes: -ZESTRIL40 M1 PO
[2021-08-16 08:09] LABS: BASOPHILS ABSOLUTE AUTO 0.03 K/mm3 (0.00-0.23); BASOPHILS PERCENT AUTO 1 % (0-2); EOSINOPHILS ABSOLUTE AUTO 0.14 K/mm3 (0.00-0.68); EOSINOPHILS PERCENT AUTO 2 % (0-6); Hematocrit 34.3 % (33.0-51.0); Hemoglobin 11.2 g/dL (11.5-16.0); IMMATURE GRAN ABSOLUTE AUTO 0.03 K/mm3 (0.00-0.10); IMMATURE GRAN PERCENT AUTO 1 % (0-1); LYMPHOCYTES ABSOLUTE AUTO 1.48 K/mm3 (0.84-5.20); LYMPHOCYTES PERCENT AUTO 25 % (21-46); MONOCYTES ABSOLUTE AUTO 0.53 K/mm3 (0.16-1.47); MONOCYTES PERCENT AUTO 9 % (4-13); Mean Corpuscular HGB 26.9 pg (26.0-34.0); Mean Corpuscular HGB Conc 32.7 g/dL (31.5-36.5); Mean Corpuscular Volume 83 fL (80-100); Mean Platelet Volume 9.2 fL (9.1-12.4); NEUTROPHILS ABSOLUTE AUTO 3.79 K/mm3 (1.96-9.15); NEUTROPHILS PERCENT AUTO 63 % (41-73); Platelet Count 259 K/mm3 (150-400); RDW Coefficient Variation 15.7 % (11.7-14.2); RDW Standard Deviation 47.8 fL (35.1-46.3); Red Blood Cell Count 4.16 M/mm3 (3.80-5.20)
[2021-08-16 08:26] LABS: Albumin, Blood 4.2 g/dL (3.4-5.0); Bilirubin, Total 0.7 mg/dL (0.1-1.0); Bun/Creatinine Ratio 18.5 (12.0-20.0); Calcium, Blood 9.3 mg/dL (8.5-10.1); Creatinine, Blood 1.08 mg/dL (0.40-1.00); Potassium, Blood 4.1 mmol/L (3.5-5.5); Total Protein, Blood 8.2 g/dL (6.4-8.2)
[2021-08-16 08:39] LABS: International Normalized Ratio 1.81; Prothrombin Time Results 18.3 Sec (9.7-11.5)
[2021-08-16 08:49] LABS: Source, Urine Clean Catch
[2021-08-16 08:51] LABS: Appearance, Urine Clear (Clear); Bilirubin, Urine Neg (Neg); Blood, Urine Neg (Neg); Color, Urine Yellow (P-Yellow); Glucose Qualitative, Urine Neg (Neg); Ketones, Urine Neg (Neg); Leukocyte Esterase, Urine Neg (Neg); Nitrite, Urine Neg (Neg); Protein, Urine Neg (Neg); Urobilinogen, Urine NORM (Normal)
--- NOTE | 2021-08-16 15:59 | NUR ---
ARRIVAL TO PCU/CARE ASSUMPTION PATIENT ARRIVED FROM THE ED DURING THIS RN LUNCH BREAK AND THIS RN ARRIVED INTO THE PATIENT ROOM AT 1355. PATIENT WAS TRASNFERED TO PCU BED VIA SLIDER SHEET. PATIENT IS HYPERTENSIVE, SEE VITAL SIGNS. TELE AFIB 90. PATIENT IS ALERT AND ORIENTED X4. PATIENT COMPLAINING OF LEFT SIDED LEG WEAKNESS AND IS UNABLE TO MOVE IT. PATIENT HAS SENSATION TO THE LEG. LUNG SOUNDS CLEAR AND NO SHORTNESS OF BREATH. PATIENT REPORTS NO CHEST PAIN. STRONG RADAIL AND PEDIS PULSES. CAP REFILL <3seconds. ABD SOFT NONTENDER. PATIENT VOIDS, BUT HAS FREQUENCY. PATIENT HAS A BRUISE TO HER LEFT OUTTER KNEE CAP. SHE GOT THE BRUISE THIS MORNING WHEN SHE HAD A FALL TO HER KNEES FROM HER LEFT LEG GOING WEAK. PATIENT DESCRIBED HER SYMPTOMS SIMILAR TO WHEN SHE HAD HER TIA IN THE PAST. SEE SHIFT ASSESSMENT FOR FULL DETAILS. MD BARROS IN TO SEE PATIENT. ECHO IN ROOM. AFTER ECHO PATIENT NEEDED TO USE THE RESTROOM. THIS RN HELPED ASSIST PATIENT TO SIT ON THE SIDE OF THE BED. HEART RATE WENT UP TO 170 AND SUSTAINED 169-170 FOR ABOUT 30SECONDS AND THEN SAT AROUND 150/160. THIS RN INFORMED THE PATIENT WE WERE GOING TO GET BACK TO BED AND USE THE BEDPAN DUE TO HER HEART RATE AND INCREASED LEFT SIDED WEAKNESS. SENIOR COMPLIANCE ANALYST ASSISTED THIS RN TO PUT PATIENT BACK INTO BED. THIS RN REASSESSED HER NEUROS STATUS AT THIS TIME. PATIENT LEANING TO THE LEFT AND UNABLE TO KEEP HERSELF SITTING UP STRAIGHT. PATIENT LEFT ARM WHEN SQUEEZING HAD SAME STRENGTH TO RIGHT ARM. PATIENT WHEN CLOSING EYES AND STICKING ARMS STRAIGHT OUT HAD A LEFT ARM DRIFT. PATIENT FACIAL SYMETRY IS SYMETRICAL. PERRLA. ABLE TO FEEL SENSATION. WHEN STICKING OUT TONGUE STICKS OUT STRAIGHT NO DRIFT. THIS RN UPDATED ASSESSMENT IN REASSESSMENT SECTION FOR NEURO. THIS RN CALLED MD BARTON AND ODALYSMRED HER OF THE PATIENTS CHANGE. MD FRANKED THIS RN THAT NEUROLOGY HAS BEEN CALLED AND WOULD INFORM ME OF THE PLAN ONCE THEY HEAR BACK. PATIENT IS HAVING OFF AND ON LEFT LEG SPASMS. THIS RN IS MONITORING THE PATIENT CLOSELY AND WILL NOTIFY MD OF ANY CHANGES IN THE PATIENT CONDITION. PATIENT HAS FULL DENTURES, HEARING AIDS, AND GLASSES. PATIENT PURSE IS NEXT TO HER THE REST OF THE PATIENT BELONGINGS ARE IN THE CABINET IN HER ROOM. CALL LIGHT WITHIN REACH AND BED IN LOWEST POSITION. WILL CONTINUE TO MONITOR AND PROVIDE CARE.
--- NOTE | 2021-08-16 17:51 | NUR ---
SHIFT SUMMARY MD BARTON INTO SEE PATIENT THIS AFTERNOON AND DISCUSSED THE PLAN OF CARE WITH THE PATIENT AFTER SPEAKING WITH THE NEUROLOGIST. MRI ORDERED AND AWAITING FOR MRI TO BE DONE. PATIENT HAS FREQUENCY WITH VOIDING, AND STATES SHE HAS GONE AND THE ATTENDS WILL BE DRY. PATIENT USES CALL LIGHT APPROPRIATELY. CALL LIGHT WITHIN REACH AND BED IN LOWEST POSITION. NO AUCTE CHANGES SINCE LAST NOTE. WILL CONTINUE TO MONITOR AND PROVIDE CARE UNTIL HAND OFF WITH NEXT SHIFT.
[2021-08-16 19:20] LABS: LDL/HDL RATIO 1.2
[2021-08-16 19:21] LABS: CHOL/HDL RATIO 2.5; Cholesterol 150 mg/dL (50-200); HDL Cholesterol 61 mg/dL (>39); Low Density Lipoprotein Chol 74 mg/dL (0-110); Triglycerides 73 mg/dL (30-160); Very Low Density Lipoprot Chol 14 mg/dL (6-32)
[2021-08-16 21:34] LABS: Bun/Creatinine Ratio 18.4 (12.0-20.0); Calcium, Blood 9.6 mg/dL (8.5-10.1); Creatinine, Blood 1.03 mg/dL (0.40-1.00); Magnesium, Blood 2.4 mg/dL (1.6-2.4); Potassium, Blood 3.9 mmol/L (3.5-5.5)
[2021-08-17 03:53] LABS: BASOPHILS ABSOLUTE AUTO 0.04 K/mm3 (0.00-0.23); BASOPHILS PERCENT AUTO 1 % (0-2); EOSINOPHILS ABSOLUTE AUTO 0.07 K/mm3 (0.00-0.68); EOSINOPHILS PERCENT AUTO 1 % (0-6); Hematocrit 40.5 % (33.0-51.0); IMMATURE GRAN ABSOLUTE AUTO 0.03 K/mm3 (0.00-0.10); IMMATURE GRAN PERCENT AUTO 0 % (0-1); LYMPHOCYTES ABSOLUTE AUTO 1.29 K/mm3 (0.84-5.20); LYMPHOCYTES PERCENT AUTO 17 % (21-46); MONOCYTES ABSOLUTE AUTO 0.71 K/mm3 (0.16-1.47); MONOCYTES PERCENT AUTO 9 % (4-13); Mean Corpuscular HGB 26.1 pg (26.0-34.0); Mean Corpuscular HGB Conc 32.1 g/dL (31.5-36.5); Mean Corpuscular Volume 81 fL (80-100); Mean Platelet Volume 8.9 fL (9.1-12.4); NEUTROPHILS ABSOLUTE AUTO 5.41 K/mm3 (1.96-9.15); NEUTROPHILS PERCENT AUTO 72 % (41-73); Platelet Count 294 K/mm3 (150-400); RDW Coefficient Variation 15.6 % (11.7-14.2); Red Blood Cell Count 4.98 M/mm3 (3.80-5.20); White Blood Cell Count 7.55 K/mm3 (4.00-11.30)
[2021-08-17 04:07] LABS: International Normalized Ratio 1.71; Prothrombin Time Results 17.3 Sec (9.7-11.5)
[2021-08-17 04:13] LABS: Albumin, Blood 4.3 g/dL (3.4-5.0); Anion Gap 9 mmol/L (6-16); Blood Urea Nitrogen 18 mg/dL (8-24); CO2, Blood 26 mmol/L (21-32); Calcium, Blood 9.7 mg/dL (8.5-10.1); Chloride, Blood 95 mmol/L (98-108); Creatinine, Blood 1.06 mg/dL (0.40-1.00); Glomerular Filtration Rate 53 (60-); Glucose, Blood 97 mg/dL (70-99); Phosphorus, Blood 3.4 mg/dL (2.5-4.9); Potassium, Blood 3.9 mmol/L (3.5-5.5); Sodium, Blood 130 mmol/L (136-145)
--- NOTE | 2021-08-17 14:35 | NUR ---
PATIENT WENT FROM 108 TO 45 ON PULSE RATE, PATEINT ASYMPTOMATIC, CALL PLACED TO DR. BARROS NO NEW ORDERS AT THIS TIME, CONTINUE TO MONITOR. MI ASHLEE HAS BEEN IN THE 70-80'S. PATIENT COMPLETELY ASYMPTOMATIC, PROVIDER WAS ALSO INFORMED OF INSTANCE, WHERE PATIENT WENT UP FROM 120 TO 181, BACK DOWN TO THE 102-140'S GAVE, 12.5 METOPROLOL TARTRATE, PER HOSPITALIST AND HR HAS BEEN 80-90'S AFTER METOPROLOL . NO NEW ORDERS WERE GIVEN WHEN CALLED AT 12:31 WITH A LEFT MESSAGE AND RESPOND RECALL WITHIN 15MINUTES FROM CALL.
--- NOTE | 2021-08-17 16:50 | NUR ---
END OF SHIFT: PATIENT HAS BEEN SLOWLY IMPROVING THROUGHOUT THE SHIFT: HAS STILL HAD A COUPLE OF INCREASED HEARTRATE TO DCREASED HR, EPISODES, PLEASE SEE NOTE. PATIENT HAS BEEN MAINTAINING 80-90'S MOST THE EVENING WITH NO EPISODES. COMPLETELY ASYMPTOMATIC, DENIES CHEST PAIN, PRESSURE, SOB, DIZZINESS. ENCOUARGED SOME GOOD ORAL INTAKE, APPETITE HAS BEEN WELL. IMPROVED STRENGTH IN THE LLE, AND ALMOST COMPLETELY REGAINED RUE STRENGTH. PUPILS EQUAL, REACTIVE. PATIENT HAS BEEN USING FWW WITH 1 ASSIST. CARDIAC DIET. PATIENT HAS NO CONCERNS OR QUESTIONS WITH PLAN OF CARE AT THIS TIME. WILL CONTINUE TO MONITOR A T THIS TIME.
--- NOTE | 2021-08-17 19:48 | NUR ---
Assumed care 1900. VSS on RA. Heart rate has been sustaining 50-60s the last hour with brief drops into 40s, asymptomatic. I did not give night time metoprolol and will monitor heart rate closely. There was one episode of heart rate jumping to 160 briefly prior to the SB episode. Atropine and Zoll are at bedside per orders. Pt is A&O, pleasant with cares. Upper and lower extremities have equal strength. Pupils reactive and equal. Will continue to monitor.
--- NOTE | 2021-08-18 03:49 | NUR ---
Pt briefly spiked up to 170s HR, only lasted about 17 seconds. VSS on RA, asymptomatic. Pt was putting on socks when it occured.
[2021-08-18 04:24] LABS: Magnesium, Blood 2.1 mg/dL (1.6-2.4)
[2021-08-18 04:25] LABS: Bun/Creatinine Ratio 24.2 (12.0-20.0); Calcium, Blood 9.3 mg/dL (8.5-10.1); Creatinine, Blood 1.24 mg/dL (0.40-1.00); International Normalized Ratio 2.57; Potassium, Blood 3.9 mmol/L (3.5-5.5); Prothrombin Time Results 25.4 Sec (9.7-11.5)
--- NOTE | 2021-08-18 04:32 | NUR ---
Shank Pinner Note: Pt is A&O, pleasant with cares. VSS on RA. Tele: At start of shift pt was bradycardic 50-60s mainly, with dips into the 40s briefly. PO metroprolol evening dose was held due to the bradycardia. Throughout the night pt has been SR/ST 70-90s mainly. Around 0330 pt had 17 seconds of HR in 170s, asymptomatic and pt was putting on socks at the time. VSS at that time. Pt strength was equal in all extremities. Pt reports she still feels slightly weaker on her left side when she ambulates. Puplis equal & reactive. FWW used when up to bathroom.
--- NOTE | 2021-08-18 08:15 | NUR ---
AM NOTE PATIENT IS PLEASANT, COOPERATIVE W CARE, AND A&OX4. TELE NSR 70S THIS AM, SPO2>95% RA, VSS. PATIENT DENIES CP/PRESSURE, N/V, SOB, NUMBNESS/TINGLING AT THIS TIME. AMIO GTT PER EMAR. PATIENT IS INDEPENDENT, SBA. PATIENT REMAINED NPO T/O THE NIGHT, ECHO IS GETTING COMPLETED AT BEDSIDE THIS AM.
--- NOTE | 2021-08-18 08:36 | NUR ---
AM NOTE PATIENT IS PLEASANT, COOPERATIVE W CARE, AND A&OX4. TELE ST 110-180S. PATIENT DID HAVE AN EPISODE OF CHEST PRESSURE WITH HR 150-180S, "HEAD TIGHTNESS" THIS AM, MEDICATED PER SCHEDULED EMAR. PATIENT ALSO C/O NUMBMNESS/TINGLING IN HER FEET B/L PRESENT FOR SOME TIME NOW, MOVEMENT AND SENSATION ARE NOT IMPAIRED. SPO2>956% RA. VSS OTHERWISE. 1TRANSFER. ZOLL, ATROPINE REMAIN AT BEDSIDE. HELD LOVENOX TODAY PER MD.
--- NOTE | 2021-08-18 10:17 | NUR ---
Pt reporting palpitations, head tightness and numb/tingling, hr prior to administering metoprolol 110-180's; after administering pt bp soft; notified Dr York and Dr Carbajal; new orders from Dr Carbajal to hold d/c coumadin at this time for possible procedure or pacemaker placement. Dr Carbajal to reach out to extension professor team to follow up with patient today. Pt alert, oriented, pleasant and cooperative with care. Pt denies pain, sob, nausea and dizziness at this time. Tele sinus/sinus tach, bp soft. Ls clear t/o, breathing even and unlabored. On initial assessment pt denies numbness/tingling, when hr elevated pt reports numbness to toes. Other vss. No other acute changes noted. Will continue to monitor.
--- NOTE | 2021-08-18 15:51 | NUR ---
Patient is sitting up in bed and alert. Patient tells me about her medical issues, her past history of relationships and her 5 grown children and grandchildren and her absolute fear of being under yary. She then shares about her many encounters with the spirits of the and her casual connection with the suprme being. Pt is very pleasant and positive and finds inspiration from reading and connections with her friends. I normalize pt's experience, explored issues of elodia and belief and provided therapeutic listening and prayer. Patient responds well and invites me back to visit next day.
--- NOTE | 2021-08-18 16:12 | NUR ---
SHIFT SUMMARY PATIENT REMAINED PLEASANT, COOPERATIVE W CARE, AND A&OX4 T/O THE SHIFT. TELE SR 90-100S. SPO2>95% RA. VSS. PATIENT DENIES CP/PRESSURE, SOB, NUMBNESS/TINGLING, N/V AT THIS TIME. DR BARROS AT BEDSIDE TODAY. ANTICOAGULANTS HAVE BEEN D/C'D, SEE CONSULT NOTE FOR FURTHER INFORMATION. PATIENT REMAINS 1TRANSFER MOBILIZING WITH A WALKER. PRN EKG ORDER PLACED WITH SUSTAINED TACHYCADIA PER DR BARROS. WILL CONTINUE TO MONITOR UNTIL FURTHER REPORT GIVEN TO THE ONCOMING SHIFT.
--- NOTE | 2021-08-18 16:41 | NUR ---
I have reviewed the nursing students documenation and am in agreement. This evening pt sinus tach up to 170's; attempted ekg but hr down prior to set up. Otherwise vss. No other acute changes noted during shift. Will continue to monitor.
--- NOTE | 2021-08-18 19:51 | NUR ---
Assumed care 1900. VSS on RA. Tele: sinus tach 90s with one episode of 170s for ~15seconds. This episode happened when pt was walking to bathroom. Unable to obtain EKG. PO metoprolol given per order. Will continue to monitor.
--- NOTE | 2021-08-19 04:25 | NUR ---
Highway Maintenance Crew Worker Note: A&O, pleasant with cares. Pupils equal and reactive. Pt still reports slightly feeling weaker on left leg than her normal. Ambulating well to bathroom w/ FWW. Tele: Sinus tach 90s mostly throughout night with one episode of jumping up into 170s briefly when up to bathroom (for ~15 seconds). I was unable to capture episode on EKG since it was so brief. Pt denies any symptoms when tachycardia occured. VSS on RA. Pt slept well overnight.
[2021-08-19 04:38] LABS: International Normalized Ratio 3.05; Prothrombin Time Results 29.8 Sec (9.7-11.5)
--- NOTE | 2021-08-19 05:58 | NUR ---
Pt jumped up to 180s when up to the bathroom for ~30 seconds. Attempted to get pt all hooked up to EKG once back in bed. By the time I got her all hooked up HR was already down in 90s, EKG still analyzed and place in chart.
--- NOTE | 2021-08-19 07:13 | NUR ---
ASSUMED CARE: PT RESTING QUIETLY IN BED, NSR IN 90S ON TELE. DENIES NEEDS OR CONCERNS AT THIS TIME.
--- NOTE | 2021-08-19 09:36 | NUR ---
PT WAS UP TO RESTROOM WITH OT. MONITOR STAFF CALLED THAT TACHYCARDIA WAS OCCURING. ENTERED ROOM AND PT WAS IN TACHYCARDIA IN 180S. PT WAS STANDING WITH WALKER TALKING TO STAFF. INSTRUCTED PT TO LAY DOWN AND ASKED IF SHE FELT RHYTHM CHANGE. PT STATED SHE FELT A FLUTTERING IN HER CHEST. FIRST BUTTON OF GOWN UNBUTTONED TO PLACE EKG LEADS AND PT'S HR DECREASED BACK TO 99. GRAIN WEIGHER AWARE
--- NOTE | 2021-08-19 13:08 | NUR ---
DR BARROS CAME TO SEE PT AND INSTRUCTED FOR EKG NOW DUE TO FEELING PT WAS IN AFLUTTER. FIRST EKG HAD A LOT OF ARTIFACT BUT SHOWED AFIB. SECOND EKG WAS ANTHROPOLOGIST PHYSICAL AND SHOWED SINUS WITH AV BLOCK. BOTH PLACED IN CHART. PT DENIES NEEDS OR CONCERNS AT THIS TIME.
--- NOTE | 2021-08-19 15:49 | NUR ---
PT'S HR REACHED 160S WITH ACTIVITY. ASYMPTOMATIC WITH THIS. HR DECREASED TO 110 SOON PT LAID DOWN IN BED
--- NOTE | 2021-08-19 16:59 | NUR ---
PT'S HR INCREASED INTO 160S. RN WENT TO BEDSIDE AND CONNECTED TO EKG AND ASKED PT TO RECREATE BUT WAS ONLY ABLE TO GET TO 130S. HR HAS BEEN RECOVERING FASTER THAN EKG CAN BE ACCOMPLISHED SO FAR
--- NOTE | 2021-08-19 17:41 | NUR ---
PT CALLED STAFF TO BEDSIDE STATING SHE WAS HAVING NUMBNESS AND TINGLING TO LEFT FACE AND LEFT ARM. MOVEMENT ON LEFT FACE SEEMS SLOWER BUT NO FURTHER DEFICITS NOTED. BP RECHECKED WITH RESULT 196/88. CALL TO DR PRYOR WHO INSTRUCTS TO GIVE A DOSE OF AMLODIPINE NOW. CALL LIGHT IN REACH. NURSE MONITORING CLOSELY
[2021-08-20 04:35] LABS: International Normalized Ratio 2.42
--- NOTE | 2021-08-20 05:45 | NUR ---
SHIFT SUMMARY PT SLEPT WELL, ORIENTED X4. VSS PER PT TREND. SR/ST UP TO 130S ON TELEMETRY WITH AMBULATION X1. UNABLE TO CATCH ON EKG. PT STATES NO NUMBNESS/TINGLING OR DIZZINESS. UAL IN ROOM. WILL CONTINUE TO MONITOR AND PASS ON TO DAY RN
--- NOTE | 2021-08-20 09:07 | NUR ---
AM NOTE: PATIENT ALERT AND ORIENTED X4. PERRLA. STATES SHE HAS "FLOATERS" IN HER LEFT EYE, ASSOCIATED WITH SOME LEFT SIDED FACIAL NUMBNESS THAT COMES AND GOES. DR. PRYOR NOTIFIED AND IN TO ASSESS. DENIES NUMBNESS/TINGLING OTHERWISE. STATES SHE HAS A MILD HEADACHE THAT IS THROBBING, TYLENOL GIVEN PER EMAR. BILATERAL STRENGTH. ABLE TO STAND AND TRANSFER WITH WALKER TO BATHROOM WITH ONE PERSON ASSIST. ON ROOM AIR, SATING ABOVE 94%. TELE SHOWING SINUS RHYTHM, HR 90'S. BP 156/96 THIS AM, ORAL MEDS GIVEN, WILL RECHECK. NO TELE EVENTS THIS AM. EKG ON STANBY IN ROOM. DENIES ABDOMINAL PAIN. MILD NAUSEA THIS AM ASSOCIATED WITH HEADACHE PER PATIENT, DENIES NEED FOR ZOFRAN. EATING BREAKFAST AT THIS TIME. CALL LIGHT IN REACH. WILL CONTINUE TO MONITOR.
--- NOTE | 2021-08-20 09:24 | NUR ---
UPON BP RECHECK BP 112/65 AND HR 58. HEADACHE AND LEFT SIDED FACIAL NUMBNESS RESOLVED. DENIES ANY PAIN. WILL CONTINUE TO MONITOR.
--- NOTE | 2021-08-20 11:28 | NUR ---
PHYSICAL THERAPY COMPLETED. UP IN ROOM AND HALLWAY. HR MAX 90 BMP. SEE VITALS FOR RECORDED HR THROUGHOUT PHYSICAL THERAPY SESSION FROM [phone]. FAMILY IN ROOM AT THIS TIME.
--- NOTE | 2021-08-20 18:46 | NUR ---
SHIFT SUMMARY: NO ACUTE CHANGES. SEE PREVIOUS NOTES. VITAL SIGNS REMAIN STABLE. NO CHANGES TO TELE. NO TACHY EVENTS RECORDED. WILL CONTINUE TO MONITOR AND REPORT OFF. PLAN FOR EKG IN AM.
[2021-08-21 04:09] LABS: International Normalized Ratio 1.75; Prothrombin Time Results 17.7 Sec (9.7-11.5)
--- NOTE | 2021-08-21 07:36 | NUR ---
SHIFT SUMMARY PT AOX4. HAS EPISODE OF NUBMNESS TO L SIDE FACE AND BILATERAL FEET W/SBP 180'S. RESOLVED FOLLOWING SBP DOWN. PT HAD SECOND EPISODE OF BILATERAL FOOT NUMBNESS FOLLOWING SCDS IN PLACE FOR AN HOUR OR SO. RESOLVED FOLLOWING REMOVAL OF SCDS. PT DENIES CP. NEURO EXAM REMAINS INTACT DURING PERIODS OF NUMBNESS. PT UP TO BATHROOM FOR SHOWER W/ASSISTANCE, HR UP TO 150'S WHILE WASHING HER BODY, BACK TO 100 BPM WITH DEEP BREATHING DIRECTED BY THIS RN. HR BACK TO 80'S-90'S WHILE IN BED. APPEARS SR ON MONITOR. UP TO 110'S WHEN UP TO BATHROOM WITH WALKER, NOT SEEN TO GET BACK UP TO 150'S AGAIN.
[2021-08-21 09:22] LABS: BASOPHILS ABSOLUTE AUTO 0.03 K/mm3 (0.00-0.23); BASOPHILS PERCENT AUTO 1 % (0-2); EOSINOPHILS PERCENT AUTO 2 % (0-6); Hemoglobin 12.8 g/dL (11.5-16.0); IMMATURE GRAN ABSOLUTE AUTO 0.02 K/mm3 (0.00-0.10); IMMATURE GRAN PERCENT AUTO 0 % (0-1); LYMPHOCYTES ABSOLUTE AUTO 1.17 K/mm3 (0.84-5.20); LYMPHOCYTES PERCENT AUTO 20 % (21-46); MONOCYTES ABSOLUTE AUTO 0.48 K/mm3 (0.16-1.47); MONOCYTES PERCENT AUTO 8 % (4-13); Mean Corpuscular HGB 27.1 pg (26.0-34.0); Mean Corpuscular HGB Conc 32.8 g/dL (31.5-36.5); Mean Corpuscular Volume 83 fL (80-100); Mean Platelet Volume 9.2 fL (9.1-12.4); NEUTROPHILS PERCENT AUTO 69 % (41-73); Platelet Count 291 K/mm3 (150-400); RDW Coefficient Variation 15.2 % (11.7-14.2); RDW Standard Deviation 46.3 fL (35.1-46.3); Red Blood Cell Count 4.72 M/mm3 (3.80-5.20)
[2021-08-21 09:53] LABS: Bun/Creatinine Ratio 20.8 (12.0-20.0); Calcium, Blood 9.4 mg/dL (8.5-10.1); Creatinine, Blood 1.01 mg/dL (0.40-1.00); Magnesium, Blood 2.4 mg/dL (1.6-2.4); Potassium, Blood 3.8 mmol/L (3.5-5.5)
--- NOTE | 2021-08-21 12:03 | NUR ---
Pt. is in bed playing a video game and welcomes my visit. Pt. is very pleasant with no real evidence of spiritual distress. Facilitated a life review and established rapport. Pt. is waiting on results from the doctors regarding her heart, but displays evidence of trust and engagement. Prayed with Pt. Pt. verbalized gratitude for the spiritual care visit.
--- NOTE | 2021-08-21 18:04 | NUR ---
SHIFT SUMMARY PT HAS BEEN INDEPENDENT IN ROOM. PT HAS BEEN PLEASANT AND COOPERATIVE WITH CARES, AND BEEN AN ACTIVE PARTICIPANT IN CARE DISCUSSIONS. PT HAS DENIED C/O PAIN OR DISCOMFORT. PT STATED A READINESS FOR DISCHARGE AND A WILLINGNESS TO WORK WITH STAFF AND PROVIDERS IN DETERMINING A PLAN OF CARE. SBP FELL TO 94 THIS AM, PROVIDER WAS NOTIFIED AND ORDERS WERE GIVEN. SBP RECOVERED TO 133, PT STATED THAT THIS WAS A NORMAL SBP FOR THEM.
--- NOTE | 2021-08-22 05:03 | NUR ---
PLACED CALL TO DR. PANCHAL UPDATED REGARDING CHANGE IN RHYTHM TO TYPE II AV BLOCK WITH RATE DROPPING LOW THE 30'S WITH SBP 90'S. THE DROPPED QRS COMPLEXES APPEAR TO OCCUR MORE FREQUENTLY DURING PT SLEEPING; COUNTED APPROXIMATLEY 7-8 P WAVES WITHOUT A QRS COMPLEX TO FOLLOW. EKG OBTAINED AND DR. PANCHAL CALLED WITH ORDERS TO KEEP PT NPO UNTIL HE IS ABLE TO COME ASSESS PATIENT.
--- NOTE | 2021-08-22 05:11 | NUR ---
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 5 P WAVES SEEN WITHOUT QRS. CONTINUED MONITORING, EKG PERFORMED AND IN CHART. PT SLEEPS IN BED AT AROUND 0433, PT MONITOR ALARMS AND 11 P WAVES ARE COUNTED BY TELE W/O QRS FOR 4.2 SECS. SHORTLY AFTER PT HAS ANOTHER RUN OF 6 P WAVES W/O QRS. THIS RN TO BEDSIDE, PT IS SLEEPING DEEPLY, SBP IN 90'S. PT AWOKEN BY THIS RN. DENIES ANY C/O STATES SHE IS VERY TIRED FROM LACK OF SLEEP AND WAS JUST SLEEPING DEEPLY. DENIES FEELING LIGHTHEADED. EKG'S PERFORMED AND IN CHART. DELFINO FERNANDEZ RN HAS CONTACTED STAMPER BLOCKER DR PANCHAL AND PT IS ORDERED TO BE NPO BY PROVIDER AT THIS TIME. PT NOTIFIED AND UPDATED. LAYING IN BED READING AT THIS TIME. SBP 160'S.
--- NOTE | 2021-08-22 07:00 | NUR ---
SHIFT SUMMARY PT AOX4 T/O SHIFT, RHYTHM CHANGE NOTED AT AROUND 0230, APPEARS MORE BRADYCARDIC AND TO BE A 2ND DEGREE AV BLOCK, MOBITZ II. EKGS IN CHART, IMMIGRATION JUDGE DR PANCHAL AWARE, PT MADE NPO. SEE PRIOR NOTE LABELED PT UPDATE. DR PANCHAL AT BEDSIDE TO DISCUSS PACEMAKER WITH PT AT THIS TIME, ONCOMING NURSE BERKLEY RN AT BEDSIDE WITH DR PANCHAL AND PT.
[2021-08-22 08:16] LABS: International Normalized Ratio 1.39; Prothrombin Time Results 14.3 Sec (9.7-11.5)
[2021-08-22 08:51] LABS: SARS-Cov-2 (COVID-19) PCR, MMC NEGATIVE (NEGATIVE)
--- NOTE | 2021-08-22 18:13 | NUR ---
SHIFT SUMMARY PT HAS BEEN INDEPENDENT IN ROOM. PT EXPRESSED CONCERNS AND QUESTIONS OVER PENDING PROCEDURE. THIS RN ADDRESSED THESE QUESTIONS AND CONCERNS AT LENGTH WITH THE PT AND DIRECTED ALL REMAINING TO THE PROVIDER. PT HAS EXPERIENCED SEVERAL TELEMETRY EVENTS, SEE SAVED TELEMETRY STRIPS. PROVIDER IS AWARE OF THESE EVENTS. PT HAS BEEN PLEASANT AND COOPERATIVE WITH CARES. PT IS HOPEFUL FOR AN EARLY PROCEDURE AND IS LOOKING FORWARD TO DISCHARGE. SBP READ 157 PRIOR TO AM MEDS AND STABILIZED TO 110'S THROUGHOUT THE REST OF THE DAY. ALL OTHER VITALS STABLE.
--- NOTE | 2021-08-22 21:07 | NUR ---
CALL TO DR PANCHAL THIS RN CALLS RESERVATIONS CLERK DR PANCHAL, ASKS IF ORDER FOR METOPROLOL 25 MG PO SHOULD BE GIVEN AT THIS TIME. UPDATED DR PANCHAL ON PT VS. ORDER TO GO AHEAD AND CONTINUE WITH ORDER. ORDERS PT/INR BE DRAWN FOR THE AM.
--- NOTE | 2021-08-23 02:25 | NUR ---
PT UPDATE PT BECOMES SEVERELY HYPOTENSIVE WITH HIGHER INCIDENCE OF 5 P WAVES SEEN W/O QRS WITH 2ND DEGREE AV BLOCK. HR IN 40'S. HR AND SBP LOW WHILE PT SLEEPS IN BED. PT AWOKEN, HR AND BP BACK UP TO 60 BPM AND 140-150 SBP. ORDER FOR NS 1,[address] PANCHAL AFTER [facility]ILITY MECHANIC CALLS FOR THIS RN. PADS IN PLACE AND ZOLL SET TO MONITOR. PT IS AOX4, BREATHING IS EVEN AND UNLABORED. DENIES C/O AT THIS TIME. BP CYCLING Q5 MINS AT THIS TIME.
[2021-08-23 04:23] LABS: International Normalized Ratio 1.15
[2021-08-23 04:24] LABS: Calcium, Blood 8.9 mg/dL (8.5-10.1)
--- NOTE | 2021-08-23 06:52 | NUR ---
SHIFT SUMMARY PT AOX4 T/O SHIFT, BREATHING IS EVEN AND UNLABORED, SATS 99-100% ON RA. DENIES C/O CP. AFLUTTER SHOWING SECOND DEGREE AV BLOCK THIS AM WITH FREQUENT EPISODES OF P WAVES WITHOUT QRS FOR 5 P WAVES. PT HAD SEVERE HYPOTENSION ASSOCIATED W/EPISODES. 1 L NS BOLUS ADMIN. EPISODES APPEAR TO BE ASSOCIATED W/PT SLEEPING. WHEN PT AWOKEN, HR AND SBP COME BACK UP.
--- NOTE | 2021-08-23 12:34 | NUR ---
UPDATE PT RETURNED FROM [facility] S/P PACEMAKER PLACEMENT. BEDSIDE REPORT RECEIVED FROM HEART CENTER NURSE. PT IS AWAKE, ALERT AND FULLY ORIENTED, IN GOOD SPIRITS. FAMILY IS AT BEDSIDE. TELEMETRY SHOWS PACED BEATS. PACEMAKER IS AN ASSURITY PROGRAMMED TO DDD. SURGICAL SITE DRESSING IS C/D/I.
--- NOTE | 2021-08-23 17:35 | NUR ---
SHIFT SUMMARY PT HAS BEEN INDEPENDENT IN ROOM. PT HAS NEEDED REMINDERS TO THE RESTRICTIONS REGARDING ARM USE POST PACEMAKER PLACEMENT. PT HAS C/O 6/10 PAIN TO THE LEFT CHEST WALL (SURGICAL SITE) THAT WAS TREATED PER EMAR. PT HAS BEEN PLEASANT AND COOPERATIVE WITH ALL CARES AND STATED THAT THEY ARE LOOKING FORWARD TO DISCHARGE TOMORROW. TELEMETRY HAS SHOWN A PACED RHYTHM SINCE RETURNING FROM THE PROCEDURE THIS AM. SBP WAS ELEVATED ON INITIAL RETURN FROM HEART CENTER AND FELL TO WITHIN NORMAL TREND VALUES. SURGICAL SITE DRESSING REMAINS C/D/I.
--- NOTE | 2021-08-24 05:58 | NUR ---
SHIFT SUMMARY Assumed care of pt at 1900. A/Ox4, a bit [place]. Pacemaker placed during dayshift, dual chamber. L chest wall incision is C/D/I, with minor discomfort. L arm is in sling per protocol. VSS, ventricular paced on tele in 80's. No acute events overnight. Will report to dayshift RN.
[2021-08-24] MEDS ORDERED: HYDROCODONE-AC1 EAC8 PO (13:00)
--- NOTE | 2021-08-24 15:01 | NUR ---
Shift Summary Pt is alert and oriented, she seemed anxious this morning when her pacemaker was being worked with. Numbness and tingling on the left side of her face and her left toes was reported. There were no drooping, defecits, or weakness present, sensation was intact, and track worker were equal bilaterally. Her heart rate incresed into the 150's when ambulating to the bathroom, but remained stable when working with physical therapy later in the day. After communicating with the doctors, they decided to restart her usual does of metoprolol 50mg BID to keep her heartrate decreased. She was dischaged at 1420. Discharge instructions provided, medications faxed to her pharmacy at [facility], family was present for her transoportation home.
== END 2021-08-24 14:32 | disposition home health service (06) | DRG 41 ==
LOC: ER 07:43 → PCU 07:44
PROVIDERS: Emergency Medicine; Hospitalist; Internal Medicine; Internal Medicine Cardiovascular Disease; Physician Assistant; ADMIT Internal Medicine
PROC: 0JH606Z Insertion of Pacemaker, Dual Chamber into Chest Subcutaneous Tissue and Fascia, Open Approach (ICD-10-PCS; principal; 2021-08-23)
PROC: 02H63JZ Insertion of Pacemaker Lead into Right Atrium, Percutaneous Approach (ICD-10-PCS; 2021-08-23)
PROC: 02HK3JZ Insertion of Pacemaker Lead into Right Ventricle, Percutaneous Approach (ICD-10-PCS; 2021-08-23)
DX: I63.312 Cerebral infarction due to thrombosis of left middle cerebral artery (principal); E87.1 Hypo-osmolality and hyponatremia; G81.94 Hemiplegia, unspecified affecting left nondominant side; I48.92 Unspecified atrial flutter; I49.5 Sick sinus syndrome; I25.10 Atherosclerotic heart disease of native coronary artery without angina pectoris; N18.31 Chronic kidney disease, stage 3a; I45.5 Other specified heart block; K21.9 Gastro-esophageal reflux disease without esophagitis; I16.0 Hypertensive urgency; I48.0 Paroxysmal atrial fibrillation; E03.9 Hypothyroidism, unspecified; Z20.822 Contact with and (suspected) exposure to COVID-19; I12.9 Hypertensive chronic kidney disease with stage 1 through stage 4 chronic kidney disease, or unspecified chronic kidney disease; M81.0 Age-related osteoporosis without current pathological fracture; I65.22 Occlusion and stenosis of left carotid artery; Z95.1 Presence of aortocoronary bypass graft; Z95.828 Presence of other vascular implants and grafts; Z86.73 Personal history of transient ischemic attack (TIA), and cerebral infarction without residual deficits; Z85.41 Personal history of malignant neoplasm of cervix uteri; Z95.2 Presence of prosthetic heart valve; Z90.710 Acquired absence of both cervix and uterus; Z90.6 Acquired absence of other parts of urinary tract; Z98.890 Other specified postprocedural states; Z91.048 Other nonmedicinal substance allergy status; Z79.82 Long term (current) use of aspirin; Z79.01 Long term (current) use of anticoagulants; Z79.811 Long term (current) use of aromatase inhibitors; Z79.899 Other long term (current) drug therapy; Z87.891 Personal history of nicotine dependence; Z91.038 Other insect allergy status; Z91.030 Bee allergy status; Z88.8 Allergy status to other drugs, medicaments and biological substances
CPT/HCPCS: 33208; 36415; 70450; 70496; 70498; 70551; 71046; 80048; 80053; 80061; 80069; 81003; 83036; 83735; 84443; 84484; 85025; 85610; 93005; 93010; 93308; 93321; 97110; 97116; 97162; 97165; 97530; 97535; 99152; 99153; 99285-25; A9270; C1781; C1785; C1894; C1898; G0378; J0690; J1580; J1644; J1650; J2250; J3010; J7030; J7040; Q9967; U0004

== ENCOUNTER 2021-08-24 16:59 | Emergency (ER) | payer MEDICARE, OTHER ==
[~2021-08-24] VITALS: Ht 165.1 cm; Wt 59.9 kg
[~2021-08-24 16:59] MED LIST changes: +HYDROCODONE-AC1 EAC8 PO
[2021-08-24 18:52] LABS: BASOPHILS ABSOLUTE AUTO 0.03 K/mm3 (0.00-0.23); BASOPHILS PERCENT AUTO 0 % (0-2); EOSINOPHILS ABSOLUTE AUTO 0.05 K/mm3 (0.00-0.68); EOSINOPHILS PERCENT AUTO 1 % (0-6); Hematocrit 36.6 % (33.0-51.0); Hemoglobin 12.1 g/dL (11.5-16.0); IMMATURE GRAN ABSOLUTE AUTO 0.02 K/mm3 (0.00-0.10); IMMATURE GRAN PERCENT AUTO 0 % (0-1); LYMPHOCYTES ABSOLUTE AUTO 0.95 K/mm3 (0.84-5.20); LYMPHOCYTES PERCENT AUTO 14 % (21-46); MONOCYTES PERCENT AUTO 7 % (4-13); Mean Corpuscular HGB 27.3 pg (26.0-34.0); Mean Corpuscular HGB Conc 33.1 g/dL (31.5-36.5); Mean Corpuscular Volume 82 fL (80-100); Mean Platelet Volume 9.4 fL (9.1-12.4); NEUTROPHILS ABSOLUTE AUTO 5.43 K/mm3 (1.96-9.15); NEUTROPHILS PERCENT AUTO 78 % (41-73); Platelet Count 265 K/mm3 (150-400); RDW Coefficient Variation 15.2 % (11.7-14.2); RDW Standard Deviation 46.5 fL (35.1-46.3); Red Blood Cell Count 4.44 M/mm3 (3.80-5.20); White Blood Cell Count 6.98 K/mm3 (4.00-11.30)
[2021-08-24 19:02] LABS: Albumin/Globulin Ratio 0.9 (0.8-1.8); Bilirubin, Total 0.8 mg/dL (0.1-1.0); Bun/Creatinine Ratio 19.6 (12.0-20.0); Calcium, Blood 9.4 mg/dL (8.5-10.1); Creatinine, Blood 0.97 mg/dL (0.40-1.00); Globulin, Blood 4.3 g/dL (2.2-4.0); Potassium, Blood 4.4 mmol/L (3.5-5.5); Total Protein, Blood 8.3 g/dL (6.4-8.2)
== END 2021-08-24 23:20 | disposition home or self-care (01) ==
LOC: ER 16:59
PROVIDERS: Student in an Organized Health Care Education/Training Program
DX: I95.1 Orthostatic hypotension (principal); I10 Essential (primary) hypertension; E03.9 Hypothyroidism, unspecified; Z95.0 Presence of cardiac pacemaker; Z91.030 Bee allergy status; Z91.048 Other nonmedicinal substance allergy status; Z79.899 Other long term (current) drug therapy; Z79.82 Long term (current) use of aspirin; Z88.5 Allergy status to narcotic agent; Z86.73 Personal history of transient ischemic attack (TIA), and cerebral infarction without residual deficits; Z95.1 Presence of aortocoronary bypass graft; Z95.820 Peripheral vascular angioplasty status with implants and grafts
CPT/HCPCS: 80053; 85025; 93005; 93010; J7030

== ENCOUNTER 2021-09-01 02:55 | Observation (INO) | payer MEDICARE, OTHER ==
[~2021-09-01] VITALS: Ht 152.4 cm; Wt 54.4 kg
[2021-09-01 03:26] LABS: BASOPHILS ABSOLUTE AUTO 0.04 K/mm3 (0.00-0.23); BASOPHILS PERCENT AUTO 1 % (0-2); EOSINOPHILS ABSOLUTE AUTO 0.24 K/mm3 (0.00-0.68); EOSINOPHILS PERCENT AUTO 4 % (0-6); Hematocrit 31.7 % (33.0-51.0); Hemoglobin 10.1 g/dL (11.5-16.0); IMMATURE GRAN ABSOLUTE AUTO 0.01 K/mm3 (0.00-0.10); IMMATURE GRAN PERCENT AUTO 0 % (0-1); LYMPHOCYTES ABSOLUTE AUTO 1.28 K/mm3 (0.84-5.20); LYMPHOCYTES PERCENT AUTO 22 % (21-46); MONOCYTES ABSOLUTE AUTO 0.68 K/mm3 (0.16-1.47); MONOCYTES PERCENT AUTO 12 % (4-13); Mean Corpuscular HGB 27.3 pg (26.0-34.0); Mean Corpuscular HGB Conc 31.9 g/dL (31.5-36.5); Mean Corpuscular Volume 86 fL (80-100); Mean Platelet Volume 9.2 fL (9.1-12.4); NEUTROPHILS ABSOLUTE AUTO 3.49 K/mm3 (1.96-9.15); NEUTROPHILS PERCENT AUTO 61 % (41-73); Platelet Count 214 K/mm3 (150-400); RDW Coefficient Variation 15.4 % (11.7-14.2); RDW Standard Deviation 48.2 fL (35.1-46.3); White Blood Cell Count 5.74 K/mm3 (4.00-11.30)
[2021-09-01 03:48] LABS: International Normalized Ratio 0.99; Prothrombin Time Results 10.4 Sec (9.7-11.5)
[2021-09-01 03:55] LABS: Albumin, Blood 3.8 g/dL (3.4-5.0); Bilirubin, Total 0.4 mg/dL (0.1-1.0); Calcium, Blood 8.8 mg/dL (8.5-10.1); Globulin, Blood 3.7 g/dL (2.2-4.0); Total Protein, Blood 7.5 g/dL (6.4-8.2)
== END 2021-09-01 14:00 | disposition home or self-care (01) ==
LOC: ER 02:55 → ERHOLD 02:56
PROVIDERS: Emergency Medicine; ADMIT Family Medicine
DX: I16.1 Hypertensive emergency (principal); I12.9 Hypertensive chronic kidney disease with stage 1 through stage 4 chronic kidney disease, or unspecified chronic kidney disease; N18.31 Chronic kidney disease, stage 3a; R79.89 Other specified abnormal findings of blood chemistry; E03.9 Hypothyroidism, unspecified; D64.9 Anemia, unspecified; E87.1 Hypo-osmolality and hyponatremia; I25.10 Atherosclerotic heart disease of native coronary artery without angina pectoris; K21.9 Gastro-esophageal reflux disease without esophagitis; I48.91 Unspecified atrial fibrillation; Z86.73 Personal history of transient ischemic attack (TIA), and cerebral infarction without residual deficits; Z95.0 Presence of cardiac pacemaker; Z88.8 Allergy status to other drugs, medicaments and biological substances; Z91.038 Other insect allergy status; Z95.1 Presence of aortocoronary bypass graft; Z95.2 Presence of prosthetic heart valve; Z95.5 Presence of coronary angioplasty implant and graft; Z96.0 Presence of urogenital implants; Z87.891 Personal history of nicotine dependence
CPT/HCPCS: 36415; 70450; 70496; 70498; 80053; 84484; 85025; 85610; 93005; 93010; A9270; J1650; Q9967

== ENCOUNTER 2021-09-04 05:39 | Emergency (ER) | payer MEDICARE, OTHER ==
[~2021-09-04] VITALS: Ht 162.6 cm; Wt 74.8 kg
[2021-09-04 07:09] LABS: BASOPHILS ABSOLUTE AUTO 0.04 K/mm3 (0.00-0.23); BASOPHILS PERCENT AUTO 1 % (0-2); EOSINOPHILS ABSOLUTE AUTO 0.16 K/mm3 (0.00-0.68); EOSINOPHILS PERCENT AUTO 3 % (0-6); Hematocrit 33.8 % (33.0-51.0); IMMATURE GRAN ABSOLUTE AUTO 0.01 K/mm3 (0.00-0.10); IMMATURE GRAN PERCENT AUTO 0 % (0-1); LYMPHOCYTES ABSOLUTE AUTO 1.38 K/mm3 (0.84-5.20); LYMPHOCYTES PERCENT AUTO 22 % (21-46); MONOCYTES ABSOLUTE AUTO 0.56 K/mm3 (0.16-1.47); MONOCYTES PERCENT AUTO 9 % (4-13); Mean Corpuscular HGB 27.4 pg (26.0-34.0); Mean Corpuscular HGB Conc 32.5 g/dL (31.5-36.5); Mean Corpuscular Volume 84 fL (80-100); NEUTROPHILS ABSOLUTE AUTO 4.04 K/mm3 (1.96-9.15); NEUTROPHILS PERCENT AUTO 65 % (41-73); Platelet Count 237 K/mm3 (150-400); RDW Coefficient Variation 15.2 % (11.7-14.2); RDW Standard Deviation 47.1 fL (35.1-46.3); Red Blood Cell Count 4.02 M/mm3 (3.80-5.20); White Blood Cell Count 6.19 K/mm3 (4.00-11.30)
[2021-09-04 07:25] LABS: Albumin/Globulin Ratio 1.1 (0.8-1.8); Bilirubin, Total 0.6 mg/dL (0.1-1.0); Bun/Creatinine Ratio 16.5 (12.0-20.0); Calcium, Blood 9.3 mg/dL (8.5-10.1); Creatinine, Blood 1.03 mg/dL (0.40-1.00); Globulin, Blood 3.8 g/dL (2.2-4.0); Potassium, Blood 4.2 mmol/L (3.5-5.5); Total Protein, Blood 7.8 g/dL (6.4-8.2)
== END 2021-09-04 09:40 | disposition home or self-care (01) ==
LOC: ER 05:39
PROVIDERS: Emergency Medicine
DX: G45.9 Transient cerebral ischemic attack, unspecified (principal); I10 Essential (primary) hypertension; Z87.891 Personal history of nicotine dependence; Z95.1 Presence of aortocoronary bypass graft; Z95.0 Presence of cardiac pacemaker
CPT/HCPCS: 36415; 70450; 80053; 85025; 93005; 93010; 99284-25; A9270

== ENCOUNTER 2021-09-07 21:21 | Emergency (ER) | payer MEDICARE, OTHER ==
[~2021-09-07] VITALS: Ht 165.1 cm; Wt 57.1 kg
[2021-09-07 22:17] LABS: BASOPHILS ABSOLUTE AUTO 0.05 K/mm3 (0.00-0.23); BASOPHILS PERCENT AUTO 1 % (0-2); EOSINOPHILS ABSOLUTE AUTO 0.16 K/mm3 (0.00-0.68); EOSINOPHILS PERCENT AUTO 3 % (0-6); Hematocrit 31.9 % (33.0-51.0); Hemoglobin 10.7 g/dL (11.5-16.0); IMMATURE GRAN ABSOLUTE AUTO 0.02 K/mm3 (0.00-0.10); IMMATURE GRAN PERCENT AUTO 0 % (0-1); LYMPHOCYTES ABSOLUTE AUTO 1.63 K/mm3 (0.84-5.20); LYMPHOCYTES PERCENT AUTO 26 % (21-46); MONOCYTES ABSOLUTE AUTO 0.64 K/mm3 (0.16-1.47); MONOCYTES PERCENT AUTO 10 % (4-13); Mean Corpuscular HGB 27.4 pg (26.0-34.0); Mean Corpuscular HGB Conc 33.5 g/dL (31.5-36.5); Mean Corpuscular Volume 82 fL (80-100); Mean Platelet Volume 8.9 fL (9.1-12.4); NEUTROPHILS PERCENT AUTO 60 % (41-73); Platelet Count 222 K/mm3 (150-400); RDW Coefficient Variation 15.2 % (11.7-14.2); RDW Standard Deviation 45.1 fL (35.1-46.3); Red Blood Cell Count 3.91 M/mm3 (3.80-5.20)
[2021-09-07 22:37] LABS: Albumin, Blood 3.9 g/dL (3.4-5.0); Bilirubin, Total 0.5 mg/dL (0.1-1.0); Bun/Creatinine Ratio 13.8 (12.0-20.0); Calcium, Blood 9.4 mg/dL (8.5-10.1); Creatinine, Blood 0.94 mg/dL (0.40-1.00); Globulin, Blood 3.8 g/dL (2.2-4.0); Total Protein, Blood 7.7 g/dL (6.4-8.2)
== END 2021-09-08 02:14 | disposition home or self-care (01) ==
LOC: ER 21:21
PROVIDERS: Student in an Organized Health Care Education/Training Program
DX: R07.9 Chest pain, unspecified (principal); I10 Essential (primary) hypertension; E03.9 Hypothyroidism, unspecified; Z79.899 Other long term (current) drug therapy; Z79.82 Long term (current) use of aspirin; Z91.030 Bee allergy status; Z91.048 Other nonmedicinal substance allergy status; Z86.73 Personal history of transient ischemic attack (TIA), and cerebral infarction without residual deficits; Z95.1 Presence of aortocoronary bypass graft; Z95.2 Presence of prosthetic heart valve; Z95.5 Presence of coronary angioplasty implant and graft; Z95.0 Presence of cardiac pacemaker
CPT/HCPCS: 36415; 71046; 80053; 84484; 85025; 93005; 93010; 96374; 99285-25

== ENCOUNTER 2021-09-12 20:04 | Emergency (ER) | payer MEDICARE, OTHER ==
[~2021-09-12] VITALS: Ht 165.1 cm; Wt 56.2 kg
[2021-09-12 20:49] LABS: BASOPHILS ABSOLUTE AUTO 0.02 K/mm3 (0.00-0.23); BASOPHILS PERCENT AUTO 0 % (0-2); EOSINOPHILS ABSOLUTE AUTO 0.13 K/mm3 (0.00-0.68); EOSINOPHILS PERCENT AUTO 2 % (0-6); Hemoglobin 10.6 g/dL (11.5-16.0); IMMATURE GRAN ABSOLUTE AUTO 0.02 K/mm3 (0.00-0.10); IMMATURE GRAN PERCENT AUTO 0 % (0-1); LYMPHOCYTES ABSOLUTE AUTO 1.43 K/mm3 (0.84-5.20); LYMPHOCYTES PERCENT AUTO 23 % (21-46); MONOCYTES ABSOLUTE AUTO 0.69 K/mm3 (0.16-1.47); MONOCYTES PERCENT AUTO 11 % (4-13); Mean Corpuscular HGB 27.4 pg (26.0-34.0); Mean Corpuscular HGB Conc 33.1 g/dL (31.5-36.5); Mean Corpuscular Volume 83 fL (80-100); NEUTROPHILS ABSOLUTE AUTO 3.96 K/mm3 (1.96-9.15); NEUTROPHILS PERCENT AUTO 63 % (41-73); Platelet Count 229 K/mm3 (150-400); RDW Coefficient Variation 15.2 % (11.7-14.2); RDW Standard Deviation 45.8 fL (35.1-46.3); Red Blood Cell Count 3.87 M/mm3 (3.80-5.20); White Blood Cell Count 6.25 K/mm3 (4.00-11.30)
[2021-09-12 21:08] LABS: Albumin/Globulin Ratio 1.1 (0.8-1.8); Bilirubin, Total 0.4 mg/dL (0.1-1.0); Bun/Creatinine Ratio 15.5 (12.0-20.0); Calcium, Blood 8.7 mg/dL (8.5-10.1); Creatinine, Blood 1.03 mg/dL (0.40-1.00); Globulin, Blood 3.7 g/dL (2.2-4.0); Potassium, Blood 4.3 mmol/L (3.5-5.5); Total Protein, Blood 7.7 g/dL (6.4-8.2)
== END 2021-09-13 00:45 | disposition home or self-care (01) ==
LOC: ER 20:04
PROVIDERS: Physician Assistant
DX: R00.2 Palpitations (principal); I10 Essential (primary) hypertension; I48.91 Unspecified atrial fibrillation; E03.9 Hypothyroidism, unspecified; Z86.73 Personal history of transient ischemic attack (TIA), and cerebral infarction without residual deficits; Z95.1 Presence of aortocoronary bypass graft; Z95.0 Presence of cardiac pacemaker; Z95.4 Presence of other heart-valve replacement; Z79.899 Other long term (current) drug therapy; Z79.82 Long term (current) use of aspirin; Z91.038 Other insect allergy status; Z91.09 Other allergy status, other than to drugs and biological substances
CPT/HCPCS: 36415; 71046; 80053; 85025; 93005; 93010; 99285-25

== ENCOUNTER 2021-09-25 12:17 | Emergency (ER) | payer MEDICARE, OTHER ==
[~2021-09-25] VITALS: Ht 165.1 cm; Wt 56.7 kg
[2021-09-25 12:52] LABS: BASOPHILS ABSOLUTE AUTO 0.05 K/mm3 (0.00-0.23); BASOPHILS PERCENT AUTO 1 % (0-2); EOSINOPHILS ABSOLUTE AUTO 0.13 K/mm3 (0.00-0.68); EOSINOPHILS PERCENT AUTO 2 % (0-6); Hematocrit 36.2 % (33.0-51.0); Hemoglobin 11.8 g/dL (11.5-16.0); IMMATURE GRAN ABSOLUTE AUTO 0.02 K/mm3 (0.00-0.10); IMMATURE GRAN PERCENT AUTO 0 % (0-1); LYMPHOCYTES ABSOLUTE AUTO 1.26 K/mm3 (0.84-5.20); LYMPHOCYTES PERCENT AUTO 19 % (21-46); MONOCYTES ABSOLUTE AUTO 0.66 K/mm3 (0.16-1.47); MONOCYTES PERCENT AUTO 10 % (4-13); Mean Corpuscular HGB 27.6 pg (26.0-34.0); Mean Corpuscular HGB Conc 32.6 g/dL (31.5-36.5); Mean Corpuscular Volume 85 fL (80-100); Mean Platelet Volume 9.5 fL (9.1-12.4); NEUTROPHILS ABSOLUTE AUTO 4.64 K/mm3 (1.96-9.15); NEUTROPHILS PERCENT AUTO 69 % (41-73); Platelet Count 276 K/mm3 (150-400); RDW Coefficient Variation 15.2 % (11.7-14.2); RDW Standard Deviation 46.6 fL (35.1-46.3); Red Blood Cell Count 4.27 M/mm3 (3.80-5.20); White Blood Cell Count 6.76 K/mm3 (4.00-11.30)
[2021-09-25 13:07] LABS: Albumin, Blood 4.3 g/dL (3.4-5.0); Bilirubin, Total 0.5 mg/dL (0.1-1.0); Bun/Creatinine Ratio 17.5 (12.0-20.0); Calcium, Blood 9.4 mg/dL (8.5-10.1); Creatinine, Blood 0.97 mg/dL (0.40-1.00); Globulin, Blood 4.1 g/dL (2.2-4.0); Potassium, Blood 4.3 mmol/L (3.5-5.5); Total Protein, Blood 8.4 g/dL (6.4-8.2)
== END 2021-09-25 16:46 | disposition home or self-care (01) ==
LOC: ER 12:17
PROVIDERS: Physician Assistant
DX: I47.1 Supraventricular tachycardia (principal); I10 Essential (primary) hypertension; E03.9 Hypothyroidism, unspecified; Z95.0 Presence of cardiac pacemaker; Z88.8 Allergy status to other drugs, medicaments and biological substances; Z91.030 Bee allergy status; Z91.038 Other insect allergy status
CPT/HCPCS: 80053; 85025; 93005; 93010; 99284-25

== ENCOUNTER → 2021-09-25 | Outpatient (CLI) | payer MEDICARE, OTHER | END | disposition home or self-care (01) | LOC: LAB SHORT 12:48 | DX: R82.79 Other abnormal findings on microbiological examination of urine (principal) | CPT/HCPCS: 87086 ==

== ENCOUNTER 2021-09-30 05:27 | Emergency (ER) | payer MEDICARE, OTHER ==
[~2021-09-30] VITALS: Ht 165.1 cm; Wt 57.6 kg
== END 2021-09-30 08:44 | disposition home or self-care (01) ==
LOC: ER 05:27
DX: I47.1 Supraventricular tachycardia (principal); I10 Essential (primary) hypertension; E03.9 Hypothyroidism, unspecified; Z86.73 Personal history of transient ischemic attack (TIA), and cerebral infarction without residual deficits; Z95.1 Presence of aortocoronary bypass graft; Z95.0 Presence of cardiac pacemaker; Z88.8 Allergy status to other drugs, medicaments and biological substances; Z91.038 Other insect allergy status; Z79.899 Other long term (current) drug therapy; Z79.82 Long term (current) use of aspirin
CPT/HCPCS: 93005; 93010

== ENCOUNTER → 2021-11-23 | Outpatient (CLI) | payer MEDICARE, OTHER | END | disposition home or self-care (01) | LOC: LAB 16:17 → LAB SHORT 16:17 | DX: N39.0 Urinary tract infection, site not specified (principal) | CPT/HCPCS: 87086 ==

== ENCOUNTER 2021-11-24 06:10 | Emergency (ER) | payer MEDICARE, OTHER ==
[~2021-11-24] VITALS: Ht 160 cm; Wt 59.4 kg
== END 2021-11-24 14:05 | disposition home or self-care (01) ==
LOC: ER 06:10
DX: R00.2 Palpitations (principal); I10 Essential (primary) hypertension; I25.10 Atherosclerotic heart disease of native coronary artery without angina pectoris; E03.9 Hypothyroidism, unspecified; Z91.030 Bee allergy status; Z91.048 Other nonmedicinal substance allergy status; Z79.899 Other long term (current) drug therapy; Z79.82 Long term (current) use of aspirin; Z86.73 Personal history of transient ischemic attack (TIA), and cerebral infarction without residual deficits; Z95.1 Presence of aortocoronary bypass graft; Z95.2 Presence of prosthetic heart valve; Z95.0 Presence of cardiac pacemaker
CPT/HCPCS: 93005; 93010; A9270

== ENCOUNTER → 2021-12-09 | Outpatient (CLI) | payer MEDICARE, OTHER | END | disposition home or self-care (01) | LOC: LAB SHORT 12:16 | DX: N39.0 Urinary tract infection, site not specified (principal) | CPT/HCPCS: 87086 ==

== ENCOUNTER 2022-01-17 03:15 | Observation (INO) | payer MEDICARE, OTHER ==
[~2022-01-17] VITALS: Ht 165.1 cm; Wt 58.1 kg
[2022-01-17 03:48] LABS: BASOPHILS ABSOLUTE AUTO 0.03 K/mm3 (0.00-0.23); BASOPHILS PERCENT AUTO 1 % (0-2); EOSINOPHILS ABSOLUTE AUTO 0.18 K/mm3 (0.00-0.68); EOSINOPHILS PERCENT AUTO 3 % (0-6); Hematocrit 34.7 % (33.0-51.0); Hemoglobin 11.6 g/dL (11.5-16.0); IMMATURE GRAN ABSOLUTE AUTO 0.02 K/mm3 (0.00-0.10); IMMATURE GRAN PERCENT AUTO 0 % (0-1); LYMPHOCYTES ABSOLUTE AUTO 2.36 K/mm3 (0.84-5.20); LYMPHOCYTES PERCENT AUTO 36 % (21-46); MONOCYTES PERCENT AUTO 11 % (4-13); Mean Corpuscular HGB 27.8 pg (26.0-34.0); Mean Corpuscular HGB Conc 33.4 g/dL (31.5-36.5); Mean Corpuscular Volume 83 fL (80-100); Mean Platelet Volume 9.3 fL (9.1-12.4); NEUTROPHILS PERCENT AUTO 49 % (41-73); Platelet Count 253 K/mm3 (150-400); RDW Standard Deviation 42.7 fL (35.1-46.3); Red Blood Cell Count 4.18 M/mm3 (3.80-5.20); White Blood Cell Count 6.49 K/mm3 (4.00-11.30)
[2022-01-17 04:01] LABS: Albumin, Blood 4.1 g/dL (3.4-5.0); Bilirubin, Total 0.5 mg/dL (0.1-1.0); Bun/Creatinine Ratio 15.1 (12.0-20.0); Calcium, Blood 9.6 mg/dL (8.5-10.1); Creatinine, Blood 1.06 mg/dL (0.40-1.00); Globulin, Blood 4.3 g/dL (2.2-4.0); Magnesium, Blood 2.2 mg/dL (1.6-2.4); Potassium, Blood 4.1 mmol/L (3.5-5.5); Total Protein, Blood 8.4 g/dL (6.4-8.2)
[2022-01-17] MEDS ORDERED: ELIQUIS2.5 M1 PO (15:01)
--- NOTE | 2022-01-17 17:55 | NUR ---
SHIFT SUMMARY; ASSUMED CARE FROM ER FOR ADMIT. BROUGHT TO UNIT VIA WHEELCHAIR. TRANSFERRED TO TO BED INDEPENDANLTY. A/A/OX4, VSS. DESCRIBED INITAL CHEST PRESSURE RADIATING TO LEFT ARM ON ARRIVAL TO ED. REPORTS SENSATION IS GONE AT THIS TIME. REPORTS CARDIAC HX OF OR WITH STENT PLACEMENTS AND PACEMAKER PLACED IN JULY. PACEMAKER INTERROGATED BY ER, REPORT IN CHART. PLEASANT AND COOPERATIVE WITH CARE, INDEPENDANT IN ROOM, WILL CONTINUE TO MONITOR AND TREAT UNTIL CHANGE OF SHIFT.
--- NOTE | 2022-01-17 21:37 | NUR ---
CARE ASSUMPTION: PATIENT VS WNL ON RA. DENIES SOB/CHEST PAIN/N/V/D OR OTHER DISCOMFORT AT START OF SHIFT - MILD HEADACHE AN HOUR LATER. MEDICATED PER EMAR. PATIENT A&O X4. BED LOW WITH CALL LIGHT IN REACH.
--- NOTE | 2022-01-18 06:10 | NUR ---
SHIFT SUMMARY: PATIENT VS WNL ON RA. DENIES SOB/CHEST PAIN/N/V/D OR OTHER DISCOMFORT. PATIENT SLEPT WELL T/O NIGHT. USES CALL LIGHT APPROPRIATELY. INDEPENDENT IN ROOM. MEDICATED PER EMAR. NO ADVERSE EVENTS THIS SHIFT. WILL CONTINUE TO MONITOR UNTIL REPORT TO DAY RN.
[2022-01-18] MEDS ORDERED: CEPH500 PO (09:41)
[2022-01-18] MEDS ORDERED: HYDCHL25 PO (09:41)
--- NOTE | 2022-01-18 12:24 | NUR ---
DISCHARGE SUMMARY; PT ALERT AND ORIENTED X4. PT HAD NO SIGN OF ACUTE CARDIAC AND RESPIRATORY DISTRESS.IV REMOVED.PT UNDERSTOOD DISCHARGE INSTRUCTIONS AND HAD NO FURTHER QUESTIONS. PT TELEMETRY REMOVED. MEDICATIONS FAXED BY MATERIAL ASSISTANT. PRIMARY RN PRESENT DURING EDUCATION AND DISCHARGE PROCESS. PRIMARY HAD NO OTHER CONCERNS FOR THE PT. PRIMARY RN WHEELED PT OUT TO TAXI.
== END 2022-01-18 11:03 | disposition home or self-care (01) ==
LOC: ER 03:15 → PCU 03:16
PROVIDERS: Student in an Organized Health Care Education/Training Program; ADMIT Internal Medicine
DX: I25.119 Atherosclerotic heart disease of native coronary artery with unspecified angina pectoris (principal); I16.0 Hypertensive urgency; I12.9 Hypertensive chronic kidney disease with stage 1 through stage 4 chronic kidney disease, or unspecified chronic kidney disease; N18.30 Chronic kidney disease, stage 3 unspecified; I48.0 Paroxysmal atrial fibrillation; I65.29 Occlusion and stenosis of unspecified carotid artery; E03.9 Hypothyroidism, unspecified; I25.10 Atherosclerotic heart disease of native coronary artery without angina pectoris; K21.9 Gastro-esophageal reflux disease without esophagitis; E87.1 Hypo-osmolality and hyponatremia; R31.9 Hematuria, unspecified; I49.3 Ventricular premature depolarization; I48.92 Unspecified atrial flutter; Z91.030 Bee allergy status; Z88.8 Allergy status to other drugs, medicaments and biological substances; Z79.82 Long term (current) use of aspirin; Z86.73 Personal history of transient ischemic attack (TIA), and cerebral infarction without residual deficits; Z95.1 Presence of aortocoronary bypass graft; Z95.0 Presence of cardiac pacemaker; Z95.3 Presence of xenogenic heart valve; Z87.891 Personal history of nicotine dependence
CPT/HCPCS: 36415; 80053; 83735; 84484; 85025; 93005; 93010; 96375; 96376; A9270; G0378; J0360; J1940

== ENCOUNTER 2022-01-21 13:56 | Emergency (ER) | payer MEDICARE, OTHER ==
[~2022-01-21] VITALS: Ht 165.1 cm; Wt 58.5 kg
[~2022-01-21 13:56] MED LIST changes: +ELIQUIS2.5 M1 PO; +HYDCHL25 PO
== END 2022-01-21 18:25 | disposition home or self-care (01) ==
LOC: ER 13:56
DX: R55 Syncope and collapse (principal); I48.91 Unspecified atrial fibrillation; I25.10 Atherosclerotic heart disease of native coronary artery without angina pectoris; I12.9 Hypertensive chronic kidney disease with stage 1 through stage 4 chronic kidney disease, or unspecified chronic kidney disease; N18.30 Chronic kidney disease, stage 3 unspecified; K21.9 Gastro-esophageal reflux disease without esophagitis; E03.9 Hypothyroidism, unspecified; Z87.891 Personal history of nicotine dependence; Z91.030 Bee allergy status; Z88.8 Allergy status to other drugs, medicaments and biological substances; Z79.899 Other long term (current) drug therapy; Z79.82 Long term (current) use of aspirin
CPT/HCPCS: 36415; 84484; 93005; 93010; J7030

== ENCOUNTER 2022-01-23 09:43 | Emergency (ER) | payer MEDICARE, OTHER ==
[~2022-01-23] VITALS: Ht 165.1 cm; Wt 59.0 kg
[2022-01-23 10:21] LABS: BASOPHILS ABSOLUTE AUTO 0.04 K/mm3 (0.00-0.23); BASOPHILS PERCENT AUTO 1 % (0-2); EOSINOPHILS ABSOLUTE AUTO 0.03 K/mm3 (0.00-0.68); EOSINOPHILS PERCENT AUTO 0 % (0-6); Hematocrit 31.8 % (33.0-51.0); Hemoglobin 10.6 g/dL (11.5-16.0); IMMATURE GRAN ABSOLUTE AUTO 0.02 K/mm3 (0.00-0.10); IMMATURE GRAN PERCENT AUTO 0 % (0-1); LYMPHOCYTES ABSOLUTE AUTO 1.55 K/mm3 (0.84-5.20); LYMPHOCYTES PERCENT AUTO 22 % (21-46); MONOCYTES ABSOLUTE AUTO 0.68 K/mm3 (0.16-1.47); MONOCYTES PERCENT AUTO 10 % (4-13); Mean Corpuscular HGB 27.3 pg (26.0-34.0); Mean Corpuscular HGB Conc 33.3 g/dL (31.5-36.5); Mean Corpuscular Volume 82 fL (80-100); Mean Platelet Volume 8.9 fL (9.1-12.4); NEUTROPHILS ABSOLUTE AUTO 4.59 K/mm3 (1.96-9.15); NEUTROPHILS PERCENT AUTO 67 % (41-73); Platelet Count 267 K/mm3 (150-400); RDW Coefficient Variation 14.1 % (11.7-14.2); RDW Standard Deviation 42.2 fL (35.1-46.3); Red Blood Cell Count 3.88 M/mm3 (3.80-5.20); White Blood Cell Count 6.91 K/mm3 (4.00-11.30)
[2022-01-23 10:37] LABS: International Normalized Ratio 1.08; Prothrombin Time Results 11.3 Sec (9.7-11.5)
[2022-01-23 10:39] LABS: Albumin, Blood 3.9 g/dL (3.4-5.0); Albumin/Globulin Ratio 0.9 (0.8-1.8); Bilirubin, Total 0.8 mg/dL (0.1-1.0); Bun/Creatinine Ratio 19.5 (12.0-20.0); Calcium, Blood 9.8 mg/dL (8.5-10.1); Creatinine, Blood 1.13 mg/dL (0.40-1.00); Globulin, Blood 4.2 g/dL (2.2-4.0); Potassium, Blood 4.5 mmol/L (3.5-5.5); Total Protein, Blood 8.1 g/dL (6.4-8.2)
[2022-01-23] MEDS ORDERED: LISI20 PO (11:48)
[2022-01-23] MEDS ORDERED: Zestril30 MG PO (11:55)
[2022-01-23 14:37] LABS: Source, Urine Clean Catch
[2022-01-23 15:06] LABS: Appearance, Urine Cloudy (Clear); Bilirubin, Urine Neg (Neg); Blood, Urine 5+ (Neg); Color, Urine Yellow (P-Yellow); Glucose Qualitative, Urine Neg (Neg); Ketones, Urine Neg (Neg); Leukocyte Esterase, Urine 1+ (Neg); Nitrite, Urine Neg (Neg); Protein, Urine 3+ (Neg); Urobilinogen, Urine NORM (Normal)
[2022-01-23 15:33] LABS: Bacteria Mod /hpf; Red Blood Cells, Urine TNTC /hpf (0-2); White Blood Cells, Urine 0-2 /hpf (0-5)
[2022-01-23 15:34] LABS: Mucus Light (0-Heavy); Squamous Epithelial Cells Few /hpf (Few); Transitional Epithelial Cells Rare /hpf (0-Rare)
== END 2022-01-23 16:10 | disposition home or self-care (01) ==
LOC: ER 09:43
PROVIDERS: Emergency Medicine; Physician Assistant
DX: I10 Essential (primary) hypertension (principal); R51.9 Headache, unspecified; R31.9 Hematuria, unspecified; Z95.1 Presence of aortocoronary bypass graft; Z95.2 Presence of prosthetic heart valve; Z91.030 Bee allergy status; Z79.890 Hormone replacement therapy; Z79.82 Long term (current) use of aspirin; Z79.899 Other long term (current) drug therapy; Z79.01 Long term (current) use of anticoagulants
CPT/HCPCS: 70450; 80053; 81001; 83690; 83880; 84484; 85025; 85610; 87086; 93005; 93010; A9270; J0360; J1885; J7030

== ENCOUNTER 2022-04-07 03:05 | Emergency (ER) | payer MEDICARE, OTHER ==
[~2022-04-07] VITALS: Ht 165.1 cm; Wt 59.0 kg
[~2022-04-07 03:05] MED LIST changes: +Zestril30 MG PO
[2022-04-07 05:00] LABS: Bun/Creatinine Ratio 21.9 (12.0-20.0); Calcium, Blood 9.1 mg/dL (8.5-10.1); Creatinine, Blood 1.05 mg/dL (0.40-1.00); Potassium, Blood 4.7 mmol/L (3.5-5.5)
[2022-04-07 05:18] LABS: BASOPHILS ABSOLUTE AUTO 0.03 K/mm3 (0.00-0.23); BASOPHILS PERCENT AUTO 1 % (0-2); EOSINOPHILS ABSOLUTE AUTO 0.12 K/mm3 (0.00-0.68); EOSINOPHILS PERCENT AUTO 2 % (0-6); Hematocrit 31.2 % (33.0-51.0); Hemoglobin 10.2 g/dL (11.5-16.0); IMMATURE GRAN ABSOLUTE AUTO 0.03 K/mm3 (0.00-0.10); IMMATURE GRAN PERCENT AUTO 1 % (0-1); LYMPHOCYTES ABSOLUTE AUTO 1.09 K/mm3 (0.84-5.20); LYMPHOCYTES PERCENT AUTO 18 % (21-46); MONOCYTES ABSOLUTE AUTO 0.56 K/mm3 (0.16-1.47); MONOCYTES PERCENT AUTO 9 % (4-13); Mean Corpuscular HGB 27.5 pg (26.0-34.0); Mean Corpuscular HGB Conc 32.7 g/dL (31.5-36.5); Mean Corpuscular Volume 84 fL (80-100); NEUTROPHILS ABSOLUTE AUTO 4.23 K/mm3 (1.96-9.15); NEUTROPHILS PERCENT AUTO 70 % (41-73); Platelet Count 238 K/mm3 (150-400); RDW Coefficient Variation 14.1 % (11.7-14.2); RDW Standard Deviation 43.7 fL (35.1-46.3); Red Blood Cell Count 3.71 M/mm3 (3.80-5.20); White Blood Cell Count 6.06 K/mm3 (4.00-11.30)
== END 2022-04-07 06:40 | disposition home or self-care (01) ==
LOC: ER 03:05
PROVIDERS: Emergency Medicine
DX: R31.9 Hematuria, unspecified (principal); I25.10 Atherosclerotic heart disease of native coronary artery without angina pectoris; I12.9 Hypertensive chronic kidney disease with stage 1 through stage 4 chronic kidney disease, or unspecified chronic kidney disease; N18.30 Chronic kidney disease, stage 3 unspecified; E03.9 Hypothyroidism, unspecified; Z95.1 Presence of aortocoronary bypass graft; Z95.2 Presence of prosthetic heart valve; Z95.0 Presence of cardiac pacemaker; Z87.891 Personal history of nicotine dependence; Z91.030 Bee allergy status; Z91.09 Other allergy status, other than to drugs and biological substances; Z79.890 Hormone replacement therapy; Z79.01 Long term (current) use of anticoagulants; Z79.899 Other long term (current) drug therapy; Z86.73 Personal history of transient ischemic attack (TIA), and cerebral infarction without residual deficits
CPT/HCPCS: 36415; 76770; 80048; 85025

== ENCOUNTER 2022-04-15 17:40 | Emergency (ER) | payer MEDICARE, OTHER ==
[~2022-04-15] VITALS: Ht 165.1 cm; Wt 59.0 kg
== END 2022-04-15 18:20 | disposition home or self-care (01) ==
LOC: ER 17:40
DX: R20.0 Anesthesia of skin (principal); R20.2 Paresthesia of skin; I12.9 Hypertensive chronic kidney disease with stage 1 through stage 4 chronic kidney disease, or unspecified chronic kidney disease; N18.30 Chronic kidney disease, stage 3 unspecified; I25.10 Atherosclerotic heart disease of native coronary artery without angina pectoris; E03.9 Hypothyroidism, unspecified; Z91.030 Bee allergy status; Z91.048 Other nonmedicinal substance allergy status; Z79.890 Hormone replacement therapy; Z79.01 Long term (current) use of anticoagulants; Z79.899 Other long term (current) drug therapy; Z86.73 Personal history of transient ischemic attack (TIA), and cerebral infarction without residual deficits; Z95.1 Presence of aortocoronary bypass graft; Z95.2 Presence of prosthetic heart valve; Z87.891 Personal history of nicotine dependence
CPT/HCPCS: 99283

== ENCOUNTER → 2022-04-15 | Outpatient (CLI) | payer MEDICARE, OTHER ==
[2022-04-15 08:57] LABS: BASOPHILS ABSOLUTE AUTO 0.04 K/mm3 (0.00-0.23); BASOPHILS PERCENT AUTO 1 % (0-2); EOSINOPHILS ABSOLUTE AUTO 0.09 K/mm3 (0.00-0.68); EOSINOPHILS PERCENT AUTO 1 % (0-6); Hematocrit 34.3 % (33.0-51.0); IMMATURE GRAN ABSOLUTE AUTO 0.02 K/mm3 (0.00-0.10); IMMATURE GRAN PERCENT AUTO 0 % (0-1); LYMPHOCYTES ABSOLUTE AUTO 1.19 K/mm3 (0.84-5.20); LYMPHOCYTES PERCENT AUTO 18 % (21-46); MONOCYTES ABSOLUTE AUTO 0.53 K/mm3 (0.16-1.47); MONOCYTES PERCENT AUTO 8 % (4-13); Mean Corpuscular HGB 26.8 pg (26.0-34.0); Mean Corpuscular HGB Conc 32.1 g/dL (31.5-36.5); Mean Corpuscular Volume 84 fL (80-100); Mean Platelet Volume 8.9 fL (9.1-12.4); NEUTROPHILS ABSOLUTE AUTO 4.77 K/mm3 (1.96-9.15); NEUTROPHILS PERCENT AUTO 72 % (41-73); Platelet Count 265 K/mm3 (150-400); RDW Coefficient Variation 14.5 % (11.7-14.2); RDW Standard Deviation 43.7 fL (35.1-46.3); White Blood Cell Count 6.64 K/mm3 (4.00-11.30)
[2022-04-15 09:09] LABS: Albumin, Blood 4.4 g/dL (3.4-5.0); Bilirubin, Total 0.7 mg/dL (0.1-1.0); Calcium, Blood 9.3 mg/dL (8.5-10.1); Creatinine, Blood 1.23 mg/dL (0.40-1.00); Globulin, Blood 4.5 g/dL (2.2-4.0); Potassium, Blood 4.3 mmol/L (3.5-5.5); Total Protein, Blood 8.9 g/dL (6.4-8.2)
== END | disposition home or self-care (01) ==
LOC: LAB SHORT 08:52
PROVIDERS: Physician Assistant
DX: N39.0 Urinary tract infection, site not specified (principal); R42 Dizziness and giddiness
CPT/HCPCS: 80053; 84484; 85025; 87086

== ENCOUNTER 2022-04-18 09:23 | Emergency (ER) | payer MEDICARE, OTHER ==
[~2022-04-18] VITALS: Ht 165.1 cm; Wt 59.0 kg
[2022-04-18 10:54] LABS: Source, Urine Clean Catch
[2022-04-18 10:57] LABS: BASOPHILS ABSOLUTE AUTO 0.05 K/mm3 (0.00-0.23); BASOPHILS PERCENT AUTO 1 % (0-2); EOSINOPHILS ABSOLUTE AUTO 0.07 K/mm3 (0.00-0.68); EOSINOPHILS PERCENT AUTO 1 % (0-6); Hematocrit 36.6 % (33.0-51.0); Hemoglobin 12.1 g/dL (11.5-16.0); IMMATURE GRAN ABSOLUTE AUTO 0.03 K/mm3 (0.00-0.10); IMMATURE GRAN PERCENT AUTO 0 % (0-1); LYMPHOCYTES ABSOLUTE AUTO 1.37 K/mm3 (0.84-5.20); LYMPHOCYTES PERCENT AUTO 18 % (21-46); MONOCYTES ABSOLUTE AUTO 0.65 K/mm3 (0.16-1.47); MONOCYTES PERCENT AUTO 8 % (4-13); Mean Corpuscular HGB 27.7 pg (26.0-34.0); Mean Corpuscular HGB Conc 33.1 g/dL (31.5-36.5); Mean Corpuscular Volume 84 fL (80-100); Mean Platelet Volume 9.4 fL (9.1-12.4); NEUTROPHILS ABSOLUTE AUTO 5.63 K/mm3 (1.96-9.15); NEUTROPHILS PERCENT AUTO 72 % (41-73); Platelet Count 295 K/mm3 (150-400); RDW Coefficient Variation 14.1 % (11.7-14.2); RDW Standard Deviation 43.3 fL (35.1-46.3); Red Blood Cell Count 4.37 M/mm3 (3.80-5.20)
[2022-04-18 11:01] LABS: Bilirubin, Urine Neg (Neg); Blood, Urine 2+ (Neg); Glucose Qualitative, Urine Neg (Neg); Ketones, Urine Neg (Neg); Leukocyte Esterase, Urine Neg (Neg); Nitrite, Urine Neg (Neg); Protein, Urine 1+ (Neg); Urobilinogen, Urine NORM (Normal)
[2022-04-18 11:17] LABS: Appearance, Urine Hazy (Clear); Color, Urine Yellow (P-Yellow)
[2022-04-18 11:19] LABS: Bacteria Few /hpf; Squamous Epithelial Cells Few /hpf (Few); White Blood Cells, Urine 0-2 /hpf (0-5)
[2022-04-18 11:24] LABS: Magnesium, Blood 2.2 mg/dL (1.6-2.4)
[2022-04-18 11:26] LABS: Albumin, Blood 4.3 g/dL (3.4-5.0); Albumin/Globulin Ratio 0.9 (0.8-1.8); Bilirubin, Total 0.7 mg/dL (0.1-1.0); Bun/Creatinine Ratio 14.3 (12.0-20.0); Calcium, Blood 9.3 mg/dL (8.5-10.1); Creatinine, Blood 1.05 mg/dL (0.40-1.00); Globulin, Blood 4.6 g/dL (2.2-4.0); Potassium, Blood 4.5 mmol/L (3.5-5.5); Thyroid Stimulating Hormone 2.86 uIU/mL (0.360-4.800); Total Protein, Blood 8.9 g/dL (6.4-8.2)
== END 2022-04-18 14:10 | disposition home or self-care (01) ==
LOC: ER 09:23
PROVIDERS: Student in an Organized Health Care Education/Training Program
DX: R20.2 Paresthesia of skin (principal); E11.22 Type 2 diabetes mellitus with diabetic chronic kidney disease; I12.9 Hypertensive chronic kidney disease with stage 1 through stage 4 chronic kidney disease, or unspecified chronic kidney disease; N18.9 Chronic kidney disease, unspecified; E03.9 Hypothyroidism, unspecified; Z91.030 Bee allergy status; Z91.09 Other allergy status, other than to drugs and biological substances; Z79.890 Hormone replacement therapy; Z79.01 Long term (current) use of anticoagulants; Z79.899 Other long term (current) drug therapy
CPT/HCPCS: 36415; 70450; 70496; 70498; 80053; 81001; 83735; 84443; 85025; J7030; Q9967

== ENCOUNTER 2022-07-26 18:36 | Emergency (ER) | payer MEDICARE, OTHER ==
[~2022-07-26] VITALS: Ht 165.1 cm; Wt 60.3 kg
[2022-07-26 19:25] LABS: BASOPHILS ABSOLUTE AUTO 0.05 K/mm3 (0.00-0.23); BASOPHILS PERCENT AUTO 1 % (0-2); EOSINOPHILS ABSOLUTE AUTO 0.17 K/mm3 (0.00-0.68); EOSINOPHILS PERCENT AUTO 2 % (0-6); Hemoglobin 9.6 g/dL (11.5-16.0); IMMATURE GRAN ABSOLUTE AUTO 0.03 K/mm3 (0.00-0.10); IMMATURE GRAN PERCENT AUTO 0 % (0-1); LYMPHOCYTES ABSOLUTE AUTO 1.66 K/mm3 (0.84-5.20); LYMPHOCYTES PERCENT AUTO 22 % (21-46); MONOCYTES ABSOLUTE AUTO 0.73 K/mm3 (0.16-1.47); MONOCYTES PERCENT AUTO 10 % (4-13); Mean Corpuscular HGB 25.5 pg (26.0-34.0); Mean Corpuscular Volume 80 fL (80-100); Mean Platelet Volume 9.6 fL (9.1-12.4); NEUTROPHILS ABSOLUTE AUTO 5.06 K/mm3 (1.96-9.15); NEUTROPHILS PERCENT AUTO 66 % (41-73); Platelet Count 326 K/mm3 (150-400); RDW Coefficient Variation 14.1 % (11.7-14.2); RDW Standard Deviation 40.5 fL (35.1-46.3); Red Blood Cell Count 3.77 M/mm3 (3.80-5.20)
[2022-07-26] MEDS ORDERED: Aspir 8181 MG PO (19:27)
[2022-07-26] MEDS ORDERED: ACET325 PO (19:27)
[2022-07-26] MEDS ORDERED: FAMO20 PO (19:28)
[2022-07-26] MEDS ORDERED: MELATONIN 5 MG1 EACH PO (19:29)
[2022-07-26 19:37] LABS: Albumin, Blood 3.7 g/dL (3.4-5.0); Albumin/Globulin Ratio 0.9 (0.8-1.8); Bilirubin, Total 0.6 mg/dL (0.1-1.0); Bun/Creatinine Ratio 18.7 (12.0-20.0); Calcium, Blood 9.1 mg/dL (8.5-10.1); Creatinine, Blood 0.96 mg/dL (0.40-1.00); Globulin, Blood 4.1 g/dL (2.2-4.0); Potassium, Blood 4.5 mmol/L (3.5-5.5); Total Protein, Blood 7.8 g/dL (6.4-8.2)
[2022-07-26 22:09] VITALS: BP 193/96
== END 2022-07-26 22:09 | disposition home or self-care (01) ==
LOC: ER 18:36
PROVIDERS: Student in an Organized Health Care Education/Training Program
DX: E87.1 Hypo-osmolality and hyponatremia (principal); D64.9 Anemia, unspecified
CPT/HCPCS: 36415; 71046; 80053; 84484; 85025; 93005; 93010

== ENCOUNTER 2022-07-27 14:36 | Emergency (ER) | payer MEDICARE, OTHER ==
[~2022-07-27] VITALS: Ht 165.1 cm; Wt 60.3 kg
[~2022-07-27 14:36] MED LIST changes: +MELATONIN 5 MG1 EACH PO
[2022-07-27 15:34] LABS: BASOPHILS ABSOLUTE AUTO 0.03 K/mm3 (0.00-0.23); BASOPHILS PERCENT AUTO 0 % (0-2); EOSINOPHILS ABSOLUTE AUTO 0.08 K/mm3 (0.00-0.68); EOSINOPHILS PERCENT AUTO 1 % (0-6); Hematocrit 32.9 % (33.0-51.0); Hemoglobin 10.6 g/dL (11.5-16.0); IMMATURE GRAN ABSOLUTE AUTO 0.03 K/mm3 (0.00-0.10); IMMATURE GRAN PERCENT AUTO 0 % (0-1); LYMPHOCYTES ABSOLUTE AUTO 1.29 K/mm3 (0.84-5.20); LYMPHOCYTES PERCENT AUTO 18 % (21-46); MONOCYTES ABSOLUTE AUTO 0.58 K/mm3 (0.16-1.47); MONOCYTES PERCENT AUTO 8 % (4-13); Mean Corpuscular HGB 25.5 pg (26.0-34.0); Mean Corpuscular HGB Conc 32.2 g/dL (31.5-36.5); Mean Corpuscular Volume 79 fL (80-100); Mean Platelet Volume 9.4 fL (9.1-12.4); NEUTROPHILS ABSOLUTE AUTO 5.01 K/mm3 (1.96-9.15); NEUTROPHILS PERCENT AUTO 71 % (41-73); Platelet Count 308 K/mm3 (150-400); RDW Coefficient Variation 14.2 % (11.7-14.2); RDW Standard Deviation 41.1 fL (35.1-46.3); Red Blood Cell Count 4.15 M/mm3 (3.80-5.20); White Blood Cell Count 7.02 K/mm3 (4.00-11.30)
[2022-07-27 15:57] LABS: Albumin/Globulin Ratio 0.9 (0.8-1.8); Bilirubin, Total 0.6 mg/dL (0.1-1.0); Bun/Creatinine Ratio 17.7 (12.0-20.0); Calcium, Blood 9.6 mg/dL (8.5-10.1); Creatinine, Blood 1.13 mg/dL (0.40-1.00); Globulin, Blood 4.3 g/dL (2.2-4.0); Magnesium, Blood 2.2 mg/dL (1.6-2.4); Potassium, Blood 4.2 mmol/L (3.5-5.5); Total Protein, Blood 8.3 g/dL (6.4-8.2)
[2022-07-27 17:22] LABS: Source, Urine Clean Catch
[2022-07-27 17:24] LABS: Appearance, Urine Hazy (Clear); Bilirubin, Urine Neg (Neg); Blood, Urine Neg (Neg); Color, Urine Yellow (P-Yellow); Glucose Qualitative, Urine Neg (Neg); Ketones, Urine Neg (Neg); Leukocyte Esterase, Urine 2+ (Neg); Nitrite, Urine Neg (Neg); Protein, Urine 2+ (Neg); Specific Gravity, Urine 1.015 (1.003-1.022); Urobilinogen, Urine NORM (Normal); pH, Urine 6.5 (5.0-8.0)
[2022-07-27 17:31] LABS: Bacteria Few /hpf; Red Blood Cells, Urine 0-2 /hpf (0-2); Squamous Epithelial Cells Few /hpf (Few); Transitional Epithelial Cells Few /hpf (0-Rare)
[2022-07-27 19:00] VITALS: BP 131/104
== END 2022-07-27 19:18 | disposition home or self-care (01) ==
LOC: ER 14:36
PROVIDERS: Physician Assistant
DX: E87.1 Hypo-osmolality and hyponatremia (principal); Z88.8 Allergy status to other drugs, medicaments and biological substances; Z91.030 Bee allergy status; Z79.899 Other long term (current) drug therapy; Z79.82 Long term (current) use of aspirin; I12.9 Hypertensive chronic kidney disease with stage 1 through stage 4 chronic kidney disease, or unspecified chronic kidney disease; N18.9 Chronic kidney disease, unspecified; E11.9 Type 2 diabetes mellitus without complications; E03.9 Hypothyroidism, unspecified; G47.30 Sleep apnea, unspecified; J45.909 Unspecified asthma, uncomplicated
CPT/HCPCS: 80053; 81001; 83735; 83935; 85025; 87086; A9270; J7030

== ENCOUNTER → 2022-07-28 | Outpatient (CLI) | payer MEDICARE, OTHER | END | disposition home or self-care (01) | LOC: LAB 12:36 → LAB SHORT 12:36 | DX: N39.0 Urinary tract infection, site not specified (principal) | CPT/HCPCS: 87086 ==

== ENCOUNTER 2022-08-01 06:56 | Emergency (ER) | payer MEDICARE, OTHER ==
[~2022-08-01] VITALS: Ht 162.6 cm; Wt 72.6 kg
[2022-08-01 07:22] VITALS: BP 156/112
[2022-08-01 07:52] LABS: Source, Urine Clean Catch
[2022-08-01 07:58] LABS: BASOPHILS ABSOLUTE AUTO 0.04 K/mm3 (0.00-0.23); BASOPHILS PERCENT AUTO 1 % (0-2); EOSINOPHILS ABSOLUTE AUTO 0.08 K/mm3 (0.00-0.68); EOSINOPHILS PERCENT AUTO 1 % (0-6); Hematocrit 30.3 % (33.0-51.0); Hemoglobin 9.8 g/dL (11.5-16.0); IMMATURE GRAN ABSOLUTE AUTO 0.02 K/mm3 (0.00-0.10); IMMATURE GRAN PERCENT AUTO 0 % (0-1); LYMPHOCYTES ABSOLUTE AUTO 0.91 K/mm3 (0.84-5.20); LYMPHOCYTES PERCENT AUTO 13 % (21-46); MONOCYTES PERCENT AUTO 8 % (4-13); Mean Corpuscular HGB 25.4 pg (26.0-34.0); Mean Corpuscular HGB Conc 32.3 g/dL (31.5-36.5); Mean Corpuscular Volume 79 fL (80-100); NEUTROPHILS ABSOLUTE AUTO 5.57 K/mm3 (1.96-9.15); NEUTROPHILS PERCENT AUTO 77 % (41-73); Platelet Count 293 K/mm3 (150-400); RDW Coefficient Variation 14.5 % (11.7-14.2); Red Blood Cell Count 3.86 M/mm3 (3.80-5.20); White Blood Cell Count 7.22 K/mm3 (4.00-11.30)
[2022-08-01 07:59] LABS: Bilirubin, Urine Neg (Neg); Blood, Urine 5+ (Neg); Glucose Qualitative, Urine Neg (Neg); Ketones, Urine Neg (Neg); Leukocyte Esterase, Urine 1+ (Neg); Nitrite, Urine Neg (Neg); Protein, Urine 2+ (Neg); Urobilinogen, Urine NORM (Normal); pH, Urine 6.5 (5.0-8.0)
[2022-08-01 08:11] LABS: Appearance, Urine Hazy (Clear); Color, Urine Yellow (P-Yellow)
[2022-08-01 08:12] LABS: Red Blood Cells, Urine TNTC /hpf (0-2); Squamous Epithelial Cells Rare /hpf (Few)
[2022-08-01 08:13] LABS: Bacteria Rare /hpf; Transitional Epithelial Cells Rare /hpf (0-Rare)
[2022-08-01 08:21] LABS: Albumin, Blood 3.7 g/dL (3.4-5.0); Albumin/Globulin Ratio 0.9 (0.8-1.8); Bilirubin, Total 0.6 mg/dL (0.1-1.0); Bun/Creatinine Ratio 18.2 (12.0-20.0); Calcium, Blood 8.9 mg/dL (8.5-10.1); Creatinine, Blood 0.99 mg/dL (0.40-1.00); Globulin, Blood 4.3 g/dL (2.2-4.0); Potassium, Blood 4.1 mmol/L (3.5-5.5)
== END 2022-08-01 08:41 | disposition home or self-care (01) ==
LOC: ER 06:56
PROVIDERS: Emergency Medicine
DX: R31.9 Hematuria, unspecified (principal); M54.50 Low back pain, unspecified; R10.31 Right lower quadrant pain; I12.9 Hypertensive chronic kidney disease with stage 1 through stage 4 chronic kidney disease, or unspecified chronic kidney disease; E11.22 Type 2 diabetes mellitus with diabetic chronic kidney disease; N18.9 Chronic kidney disease, unspecified; I48.91 Unspecified atrial fibrillation; E03.9 Hypothyroidism, unspecified; Z79.01 Long term (current) use of anticoagulants; Z91.048 Other nonmedicinal substance allergy status; Z91.038 Other insect allergy status; Z95.0 Presence of cardiac pacemaker; Z79.82 Long term (current) use of aspirin; Z79.899 Other long term (current) drug therapy; Z87.891 Personal history of nicotine dependence
CPT/HCPCS: 80053; 81001; 85025; 87086

== ENCOUNTER 2022-08-27 04:41 | Emergency (ER) | payer MEDICARE, OTHER ==
[~2022-08-27] VITALS: Ht 170.2 cm; Wt 65.8 kg
[2022-08-27 05:35] VITALS: BP 197/67
== END 2022-08-27 05:45 | disposition home or self-care (01) ==
LOC: ER 04:41
DX: I10 Essential (primary) hypertension (principal)
CPT/HCPCS: 99282

== ENCOUNTER 2022-09-06 12:52 | Emergency (ER) | payer MEDICARE, OTHER ==
[~2022-09-06] VITALS: Ht 165.1 cm; Wt 60.3 kg
[2022-09-06 13:13] VITALS: BP 143/66
[2022-09-06] MEDS ORDERED: FAMO20 PO (13:21)
[2022-09-06] MEDS ORDERED: MELATONIN5 M1 PO (13:23)
[2022-09-06 14:51] LABS: Bun/Creatinine Ratio 14.3 (12.0-20.0); Calcium, Blood 9.2 mg/dL (8.5-10.1); Creatinine, Blood 1.05 mg/dL (0.40-1.00)
== END 2022-09-06 15:28 | disposition home or self-care (01) ==
LOC: ER 12:52
PROVIDERS: Student in an Organized Health Care Education/Training Program
DX: N99.522 Malfunction of incontinent external stoma of urinary tract (principal); T83.092A Other mechanical complication of nephrostomy catheter, initial encounter; Y84.8 Other medical procedures as the cause of abnormal reaction of the patient, or of later complication, without mention of misadventure at the time of the procedure; E11.22 Type 2 diabetes mellitus with diabetic chronic kidney disease; N18.9 Chronic kidney disease, unspecified; E03.9 Hypothyroidism, unspecified; Z91.030 Bee allergy status; Z91.048 Other nonmedicinal substance allergy status; Z79.890 Hormone replacement therapy; Z79.82 Long term (current) use of aspirin; Z79.01 Long term (current) use of anticoagulants; Z79.899 Other long term (current) drug therapy; Z95.0 Presence of cardiac pacemaker
CPT/HCPCS: 36415; 76705; 80048

== ENCOUNTER 2022-09-06 20:06 | Emergency (ER) | payer MEDICARE, OTHER ==
[~2022-09-06] VITALS: Ht 165.1 cm; Wt 59.0 kg
== END 2022-09-06 22:33 | disposition home or self-care (01) ==
LOC: ER 20:06
DX: T83.098A Other mechanical complication of other urinary catheter, initial encounter (principal); I10 Essential (primary) hypertension; E11.9 Type 2 diabetes mellitus without complications; E03.9 Hypothyroidism, unspecified; Z91.030 Bee allergy status; Z91.048 Other nonmedicinal substance allergy status; Z79.01 Long term (current) use of anticoagulants; Z79.82 Long term (current) use of aspirin; Z79.890 Hormone replacement therapy; Z79.899 Other long term (current) drug therapy; Z95.1 Presence of aortocoronary bypass graft; Z95.0 Presence of cardiac pacemaker
CPT/HCPCS: 99284-25

== ENCOUNTER → 2022-09-08 | Outpatient (CLI) | payer MEDICARE, OTHER ==
[~2022-09-08] MED LIST changes: +HYDR1TAB94 PO; +Norco 5-325 Ta1 EACH PO
== END | disposition home or self-care (01) ==
LOC: LAB 12:58 → LAB SHORT 12:58
DX: N39.0 Urinary tract infection, site not specified (principal)
CPT/HCPCS: 87086

== ENCOUNTER 2022-09-09 01:14 | Emergency (ER) | payer MEDICARE, OTHER ==
[~2022-09-09] VITALS: Ht 162.6 cm; Wt 63.5 kg
[~2022-09-09 01:14] MED LIST changes: -HYDR1TAB94 PO; -Norco 5-325 Ta1 EACH PO
[2022-09-09 02:20] LABS: Source, Urine Voided
[2022-09-09 02:34] LABS: BASOPHILS ABSOLUTE AUTO 0.02 K/mm3 (0.00-0.23); BASOPHILS PERCENT AUTO 0 % (0-2); EOSINOPHILS ABSOLUTE AUTO 0.08 K/mm3 (0.00-0.68); EOSINOPHILS PERCENT AUTO 1 % (0-6); Hematocrit 26.7 % (33.0-51.0); Hemoglobin 8.6 g/dL (11.5-16.0); IMMATURE GRAN ABSOLUTE AUTO 0.04 K/mm3 (0.00-0.10); IMMATURE GRAN PERCENT AUTO 1 % (0-1); LYMPHOCYTES ABSOLUTE AUTO 1.21 K/mm3 (0.84-5.20); LYMPHOCYTES PERCENT AUTO 15 % (21-46); MONOCYTES ABSOLUTE AUTO 0.84 K/mm3 (0.16-1.47); MONOCYTES PERCENT AUTO 11 % (4-13); Mean Corpuscular HGB 24.7 pg (26.0-34.0); Mean Corpuscular HGB Conc 32.2 g/dL (31.5-36.5); Mean Corpuscular Volume 77 fL (80-100); Mean Platelet Volume 9.3 fL (9.1-12.4); NEUTROPHILS ABSOLUTE AUTO 5.68 K/mm3 (1.96-9.15); NEUTROPHILS PERCENT AUTO 72 % (41-73); Platelet Count 292 K/mm3 (150-400); RDW Coefficient Variation 14.8 % (11.7-14.2); RDW Standard Deviation 41.1 fL (35.1-46.3); Red Blood Cell Count 3.48 M/mm3 (3.80-5.20); White Blood Cell Count 7.87 K/mm3 (4.00-11.30)
[2022-09-09 02:43] LABS: Bilirubin, Urine Neg (Neg); Blood, Urine 5+ (Neg); Glucose Qualitative, Urine Neg (Neg); Ketones, Urine Neg (Neg); Leukocyte Esterase, Urine 1+ (Neg); Nitrite, Urine Neg (Neg); Protein, Urine 3+ (Neg); Urobilinogen, Urine NORM (Normal)
[2022-09-09 02:47] LABS: Albumin, Blood 3.2 g/dL (3.4-5.0); Albumin/Globulin Ratio 0.8 (0.8-1.8); Bilirubin, Total 0.7 mg/dL (0.1-1.0); Bun/Creatinine Ratio 12.8 (12.0-20.0); Calcium, Blood 8.6 mg/dL (8.5-10.1); Creatinine, Blood 0.94 mg/dL (0.40-1.00); Globulin, Blood 3.8 g/dL (2.2-4.0)
[2022-09-09 02:54] LABS: Appearance, Urine Hazy (Clear); Color, Urine Pale Yellow (P-Yellow)
[2022-09-09 02:55] LABS: White Blood Cells, Urine 0-2 /hpf (0-5)
[2022-09-09 02:56] LABS: Bacteria Mod /hpf; Squamous Epithelial Cells Mod /hpf (Few)
[2022-09-09 05:30] VITALS: BP 181/71
[2022-09-09] MEDS ORDERED: Norco 5-325 Ta1 EACH PO (06:05)
== END 2022-09-09 06:25 | disposition home or self-care (01) ==
LOC: ER 01:14
PROVIDERS: Emergency Medicine
DX: R10.31 Right lower quadrant pain (principal); Z91.030 Bee allergy status; Z88.8 Allergy status to other drugs, medicaments and biological substances; Z79.899 Other long term (current) drug therapy; Z79.82 Long term (current) use of aspirin; I12.9 Hypertensive chronic kidney disease with stage 1 through stage 4 chronic kidney disease, or unspecified chronic kidney disease; N18.9 Chronic kidney disease, unspecified; E11.22 Type 2 diabetes mellitus with diabetic chronic kidney disease; E03.9 Hypothyroidism, unspecified; G47.30 Sleep apnea, unspecified; I48.91 Unspecified atrial fibrillation
CPT/HCPCS: 70450; 74177; 80053; 81001; 83690; 85025; 87086; 93005; 93010; 99284-25; Q9967

== ENCOUNTER 2022-09-14 21:04 | Emergency (ER) | payer MEDICARE, OTHER ==
[~2022-09-14] VITALS: Ht 165.1 cm; Wt 59.0 kg
[~2022-09-14 21:04] MED LIST changes: +Norco 5-325 Ta1 EACH PO
[2022-09-14 21:21] VITALS: BP 124/80
[2022-09-14] MEDS ORDERED: HYDR1TAB94 PO (22:13)
== END 2022-09-14 22:50 | disposition home or self-care (01) ==
LOC: ER 21:04
DX: R20.0 Anesthesia of skin (principal); E78.5 Hyperlipidemia, unspecified; I12.9 Hypertensive chronic kidney disease with stage 1 through stage 4 chronic kidney disease, or unspecified chronic kidney disease; N18.9 Chronic kidney disease, unspecified; E11.22 Type 2 diabetes mellitus with diabetic chronic kidney disease; E03.9 Hypothyroidism, unspecified; J45.909 Unspecified asthma, uncomplicated; I48.91 Unspecified atrial fibrillation; Z91.030 Bee allergy status; Z91.048 Other nonmedicinal substance allergy status; Z79.899 Other long term (current) drug therapy; Z79.01 Long term (current) use of anticoagulants; Z79.82 Long term (current) use of aspirin
CPT/HCPCS: 99283

== ENCOUNTER 2022-09-29 12:15 | Emergency (ER) | payer MEDICARE, OTHER ==
[~2022-09-29] VITALS: Ht 165.1 cm; Wt 56.2 kg
[~2022-09-29 12:15] MED LIST changes: +CEFP200 PO; +HYDR1TAB94 PO; +MIRALAX17 GM PO; +ONELAX10 MG PR; +SEN-O-TAB8.6 MG PO
[2022-09-29 12:26] VITALS: BP 169/85
== END 2022-09-29 14:38 | disposition home or self-care (01) ==
LOC: ER 12:15
DX: R42 Dizziness and giddiness (principal); I12.9 Hypertensive chronic kidney disease with stage 1 through stage 4 chronic kidney disease, or unspecified chronic kidney disease; E11.22 Type 2 diabetes mellitus with diabetic chronic kidney disease; N18.9 Chronic kidney disease, unspecified; I48.91 Unspecified atrial fibrillation; E03.9 Hypothyroidism, unspecified; E78.5 Hyperlipidemia, unspecified; Z91.048 Other nonmedicinal substance allergy status; Z91.030 Bee allergy status; Z79.01 Long term (current) use of anticoagulants; Z79.82 Long term (current) use of aspirin; Z79.899 Other long term (current) drug therapy
CPT/HCPCS: 99284

== ENCOUNTER 2022-10-05 07:31 | Emergency (ER) | payer MEDICARE, OTHER ==
[~2022-10-05] VITALS: Ht 165.1 cm; Wt 56.2 kg
[2022-10-05 08:22] LABS: BASOPHILS ABSOLUTE AUTO 0.05 K/mm3 (0.00-0.23); BASOPHILS PERCENT AUTO 1 % (0-2); EOSINOPHILS ABSOLUTE AUTO 0.11 K/mm3 (0.00-0.68); EOSINOPHILS PERCENT AUTO 1 % (0-6); Hematocrit 29.8 % (33.0-51.0); Hemoglobin 9.4 g/dL (11.5-16.0); IMMATURE GRAN ABSOLUTE AUTO 0.03 K/mm3 (0.00-0.10); IMMATURE GRAN PERCENT AUTO 0 % (0-1); LYMPHOCYTES PERCENT AUTO 20 % (21-46); MONOCYTES ABSOLUTE AUTO 0.68 K/mm3 (0.16-1.47); MONOCYTES PERCENT AUTO 9 % (4-13); Mean Corpuscular HGB 24.4 pg (26.0-34.0); Mean Corpuscular HGB Conc 31.5 g/dL (31.5-36.5); Mean Corpuscular Volume 77 fL (80-100); Mean Platelet Volume 9.1 fL (9.1-12.4); NEUTROPHILS ABSOLUTE AUTO 5.53 K/mm3 (1.96-9.15); NEUTROPHILS PERCENT AUTO 69 % (41-73); Platelet Count 365 K/mm3 (150-400); RDW Coefficient Variation 16.7 % (11.7-14.2); RDW Standard Deviation 46.4 fL (35.1-46.3); Red Blood Cell Count 3.86 M/mm3 (3.80-5.20)
[2022-10-05 08:44] LABS: Albumin, Blood 3.5 g/dL (3.4-5.0); Albumin/Globulin Ratio 0.9 (0.8-1.8); Bilirubin, Total 0.6 mg/dL (0.1-1.0); Calcium, Blood 9.4 mg/dL (8.5-10.1); Globulin, Blood 4.1 g/dL (2.2-4.0); Magnesium, Blood 2.1 mg/dL (1.6-2.4); Potassium, Blood 3.8 mmol/L (3.5-5.5); Total Protein, Blood 7.6 g/dL (6.4-8.2)
[2022-10-05] MEDS ORDERED: MECL25 PO (09:53)
[2022-10-05 10:04] VITALS: BP 142/62
== END 2022-10-05 10:06 | disposition home or self-care (01) ==
LOC: ER 07:31
PROVIDERS: Student in an Organized Health Care Education/Training Program
DX: I47.1 Supraventricular tachycardia (principal); I12.9 Hypertensive chronic kidney disease with stage 1 through stage 4 chronic kidney disease, or unspecified chronic kidney disease; N18.9 Chronic kidney disease, unspecified; E11.22 Type 2 diabetes mellitus with diabetic chronic kidney disease; E78.5 Hyperlipidemia, unspecified; I48.91 Unspecified atrial fibrillation; J45.909 Unspecified asthma, uncomplicated; E03.9 Hypothyroidism, unspecified; Z79.01 Long term (current) use of anticoagulants; Z79.82 Long term (current) use of aspirin; Z79.899 Other long term (current) drug therapy; Z88.8 Allergy status to other drugs, medicaments and biological substances; Z91.030 Bee allergy status
CPT/HCPCS: 71046; 80053; 83735; 83880; 85025; 93005; 93010; 99285-25; A9270

== ENCOUNTER 2022-10-07 08:20 | Emergency (ER) | payer MEDICARE, OTHER ==
[~2022-10-07] VITALS: Ht 165.1 cm; Wt 56.2 kg
[2022-10-07 09:06] LABS: BASOPHILS ABSOLUTE AUTO 0.04 K/mm3 (0.00-0.23); BASOPHILS PERCENT AUTO 1 % (0-2); EOSINOPHILS ABSOLUTE AUTO 0.09 K/mm3 (0.00-0.68); EOSINOPHILS PERCENT AUTO 1 % (0-6); Hematocrit 28.5 % (33.0-51.0); IMMATURE GRAN ABSOLUTE AUTO 0.02 K/mm3 (0.00-0.10); IMMATURE GRAN PERCENT AUTO 0 % (0-1); LYMPHOCYTES ABSOLUTE AUTO 1.28 K/mm3 (0.84-5.20); LYMPHOCYTES PERCENT AUTO 16 % (21-46); MONOCYTES ABSOLUTE AUTO 0.62 K/mm3 (0.16-1.47); MONOCYTES PERCENT AUTO 8 % (4-13); Mean Corpuscular HGB 24.3 pg (26.0-34.0); Mean Corpuscular HGB Conc 31.6 g/dL (31.5-36.5); Mean Corpuscular Volume 77 fL (80-100); Mean Platelet Volume 9.2 fL (9.1-12.4); NEUTROPHILS ABSOLUTE AUTO 6.05 K/mm3 (1.96-9.15); NEUTROPHILS PERCENT AUTO 75 % (41-73); Platelet Count 342 K/mm3 (150-400); RDW Coefficient Variation 16.5 % (11.7-14.2); RDW Standard Deviation 46.1 fL (35.1-46.3)
[2022-10-07 09:33] LABS: Albumin, Blood 3.3 g/dL (3.4-5.0); Albumin/Globulin Ratio 0.8 (0.8-1.8); Bilirubin, Total 0.8 mg/dL (0.1-1.0); Creatinine, Blood 0.94 mg/dL (0.40-1.00); Potassium, Blood 3.8 mmol/L (3.5-5.5); Total Protein, Blood 7.3 g/dL (6.4-8.2)
[2022-10-07 10:28] LABS: Magnesium, Blood 1.9 mg/dL (1.6-2.4); Phosphorus, Blood 2.7 mg/dL (2.5-4.9)
[2022-10-07] MEDS ORDERED: METO100ER PO (10:53)
[2022-10-07 11:00] VITALS: BP 181/88
== END 2022-10-07 11:11 | disposition home or self-care (01) ==
LOC: ER 08:20
PROVIDERS: Physician Assistant
DX: I48.91 Unspecified atrial fibrillation (principal); I12.9 Hypertensive chronic kidney disease with stage 1 through stage 4 chronic kidney disease, or unspecified chronic kidney disease; E11.22 Type 2 diabetes mellitus with diabetic chronic kidney disease; N18.9 Chronic kidney disease, unspecified; E03.9 Hypothyroidism, unspecified; J45.909 Unspecified asthma, uncomplicated; Z79.51 Long term (current) use of inhaled steroids; Z91.048 Other nonmedicinal substance allergy status; Z91.030 Bee allergy status; Z79.82 Long term (current) use of aspirin; Z79.01 Long term (current) use of anticoagulants; Z79.899 Other long term (current) drug therapy
CPT/HCPCS: 80053; 83735; 84100; 85025; 93005; 93010; 99285-25; A9270

== ENCOUNTER 2022-12-03 16:57 | Emergency (ER) | payer MEDICARE, OTHER ==
[~2022-12-03] VITALS: Ht 165.1 cm; Wt 54.0 kg
[~2022-12-03 16:57] MED LIST changes: +METO100ER PO
[2022-12-03 17:34] LABS: BASOPHILS ABSOLUTE AUTO 0.02 K/mm3 (0.00-0.23); BASOPHILS PERCENT AUTO 0 % (0-2); EOSINOPHILS ABSOLUTE AUTO 0.09 K/mm3 (0.00-0.68); EOSINOPHILS PERCENT AUTO 1 % (0-6); Hematocrit 26.3 % (33.0-51.0); Hemoglobin 8.3 g/dL (11.5-16.0); IMMATURE GRAN ABSOLUTE AUTO 0.02 K/mm3 (0.00-0.10); IMMATURE GRAN PERCENT AUTO 0 % (0-1); LYMPHOCYTES ABSOLUTE AUTO 1.12 K/mm3 (0.84-5.20); LYMPHOCYTES PERCENT AUTO 16 % (21-46); MONOCYTES ABSOLUTE AUTO 0.68 K/mm3 (0.16-1.47); MONOCYTES PERCENT AUTO 10 % (4-13); Mean Corpuscular HGB Conc 31.6 g/dL (31.5-36.5); Mean Corpuscular Volume 76 fL (80-100); Mean Platelet Volume 8.9 fL (9.1-12.4); NEUTROPHILS ABSOLUTE AUTO 5.14 K/mm3 (1.96-9.15); NEUTROPHILS PERCENT AUTO 73 % (41-73); Platelet Count 323 K/mm3 (150-400); RDW Coefficient Variation 16.8 % (11.7-14.2); RDW Standard Deviation 46.5 fL (35.1-46.3); Red Blood Cell Count 3.46 M/mm3 (3.80-5.20); White Blood Cell Count 7.07 K/mm3 (4.00-11.30)
[2022-12-03 17:50] LABS: Albumin, Blood 3.4 g/dL (3.4-5.0); Albumin/Globulin Ratio 0.7 (0.8-1.8); Bilirubin, Total 0.5 mg/dL (0.1-1.0); Bun/Creatinine Ratio 14.1 (12.0-20.0); Calcium, Blood 9.5 mg/dL (8.5-10.1); Globulin, Blood 4.6 g/dL (2.2-4.0); Potassium, Blood 4.1 mmol/L (3.5-5.5)
[2022-12-03 22:46] VITALS: BP 187/96
== END 2022-12-03 22:45 | disposition home or self-care (01) ==
LOC: ER 16:57
PROVIDERS: Student in an Organized Health Care Education/Training Program
DX: R20.2 Paresthesia of skin (principal); D64.9 Anemia, unspecified; E87.1 Hypo-osmolality and hyponatremia; E78.5 Hyperlipidemia, unspecified; E11.22 Type 2 diabetes mellitus with diabetic chronic kidney disease; I12.9 Hypertensive chronic kidney disease with stage 1 through stage 4 chronic kidney disease, or unspecified chronic kidney disease; N18.9 Chronic kidney disease, unspecified; E03.9 Hypothyroidism, unspecified; G47.30 Sleep apnea, unspecified; J45.990 Exercise induced bronchospasm; I48.91 Unspecified atrial fibrillation; Z79.01 Long term (current) use of anticoagulants; Z88.8 Allergy status to other drugs, medicaments and biological substances; Z91.030 Bee allergy status; Z79.899 Other long term (current) drug therapy; Z79.82 Long term (current) use of aspirin
CPT/HCPCS: 80053; 85025; 93005; 93010; 99284-25

== ENCOUNTER 2022-12-24 13:01 | Emergency (ER) | payer MEDICARE, OTHER ==
[~2022-12-24] VITALS: Ht 165.1 cm; Wt 51.3 kg
[2022-12-24 13:58] LABS: Percent Saturation 9.8 % (15.0-50.0)
[2022-12-24 17:00] VITALS: BP 180/70
== END 2022-12-24 17:20 | disposition home or self-care (01) ==
LOC: ER 13:01
PROVIDERS: Physician Assistant
DX: D64.9 Anemia, unspecified (principal); C76.2 Malignant neoplasm of abdomen; R51.9 Headache, unspecified; Z88.8 Allergy status to other drugs, medicaments and biological substances; Z91.030 Bee allergy status; Z79.899 Other long term (current) drug therapy; Z79.82 Long term (current) use of aspirin; I12.9 Hypertensive chronic kidney disease with stage 1 through stage 4 chronic kidney disease, or unspecified chronic kidney disease; E78.5 Hyperlipidemia, unspecified; N18.9 Chronic kidney disease, unspecified; E11.22 Type 2 diabetes mellitus with diabetic chronic kidney disease; E03.9 Hypothyroidism, unspecified; G47.30 Sleep apnea, unspecified; J45.909 Unspecified asthma, uncomplicated; I48.91 Unspecified atrial fibrillation; I51.7 Cardiomegaly; J44.9 Chronic obstructive pulmonary disease, unspecified; R53.83 Other fatigue
CPT/HCPCS: 70450; 71046; 80048; 82728; 83540; 83550; 84443; 85025; 93005; 93010; 99284-25

== ENCOUNTER 2022-12-26 11:52 | Emergency (ER) | payer MEDICARE, OTHER ==
[~2022-12-26] VITALS: Ht 165.1 cm; Wt 51.3 kg
[2022-12-26 12:15] VITALS: BP 142/70
[2022-12-26 12:52] LABS: BASOPHILS ABSOLUTE AUTO 0.03 K/mm3 (0.00-0.23); BASOPHILS PERCENT AUTO 0 % (0-2); EOSINOPHILS ABSOLUTE AUTO 0.09 K/mm3 (0.00-0.68); EOSINOPHILS PERCENT AUTO 1 % (0-6); Hematocrit 26.4 % (33.0-51.0); Hemoglobin 8.1 g/dL (11.5-16.0); IMMATURE GRAN ABSOLUTE AUTO 0.03 K/mm3 (0.00-0.10); IMMATURE GRAN PERCENT AUTO 0 % (0-1); LYMPHOCYTES PERCENT AUTO 17 % (21-46); MONOCYTES ABSOLUTE AUTO 0.86 K/mm3 (0.16-1.47); MONOCYTES PERCENT AUTO 10 % (4-13); Mean Corpuscular HGB 23.1 pg (26.0-34.0); Mean Corpuscular HGB Conc 30.7 g/dL (31.5-36.5); Mean Corpuscular Volume 75 fL (80-100); Mean Platelet Volume 9.2 fL (9.1-12.4); NEUTROPHILS ABSOLUTE AUTO 6.51 K/mm3 (1.96-9.15); NEUTROPHILS PERCENT AUTO 72 % (41-73); Platelet Count 391 K/mm3 (150-400); RDW Coefficient Variation 16.3 % (11.7-14.2); RDW Standard Deviation 44.9 fL (35.1-46.3); White Blood Cell Count 9.02 K/mm3 (4.00-11.30)
[2022-12-26 13:05] LABS: Albumin, Blood 3.4 g/dL (3.4-5.0); Albumin/Globulin Ratio 0.8 (0.8-1.8); Bilirubin, Total 0.4 mg/dL (0.1-1.0); Bun/Creatinine Ratio 16.5 (12.0-20.0); Calcium, Blood 9.3 mg/dL (8.5-10.1); Creatinine, Blood 0.97 mg/dL (0.40-1.00); Globulin, Blood 4.4 g/dL (2.2-4.0); Potassium, Blood 4.1 mmol/L (3.5-5.5); Total Protein, Blood 7.8 g/dL (6.4-8.2)
== END 2022-12-26 15:09 | disposition home or self-care (01) ==
LOC: ER 11:52
PROVIDERS: Emergency Medicine
DX: D50.9 Iron deficiency anemia, unspecified (principal); R41.89 Other symptoms and signs involving cognitive functions and awareness; Z88.8 Allergy status to other drugs, medicaments and biological substances; Z91.030 Bee allergy status; Z79.899 Other long term (current) drug therapy; Z79.82 Long term (current) use of aspirin; I12.9 Hypertensive chronic kidney disease with stage 1 through stage 4 chronic kidney disease, or unspecified chronic kidney disease; E78.5 Hyperlipidemia, unspecified; N18.9 Chronic kidney disease, unspecified; E11.22 Type 2 diabetes mellitus with diabetic chronic kidney disease; E03.9 Hypothyroidism, unspecified; G47.30 Sleep apnea, unspecified; I48.91 Unspecified atrial fibrillation
CPT/HCPCS: 80053; 85025; 93005; 93010; 99285-25

== ENCOUNTER → 2023-01-13 | Outpatient (CLI) | payer MEDICARE, OTHER ==
[2023-01-13 14:12] LABS: Albumin, Blood 3.6 g/dL (3.4-5.0); Albumin/Globulin Ratio 0.8 (0.8-1.8); Bilirubin, Total 0.5 mg/dL (0.1-1.0); Bun/Creatinine Ratio 17.3 (12.0-20.0); Calcium, Blood 9.1 mg/dL (8.5-10.1); Creatinine, Blood 1.1 mg/dL (0.40-1.00); Globulin, Blood 4.5 g/dL (2.2-4.0); Potassium, Blood 4.1 mmol/L (3.5-5.5); Thyroid Stimulating Hormone 2.63 uIU/mL (0.360-4.800); Total Protein, Blood 8.1 g/dL (6.4-8.2)
== END | disposition home or self-care (01) ==
LOC: LAB SHORT 12:30 → LAB 12:30
PROVIDERS: Internal Medicine Hematology & Oncology
DX: C68.8 Malignant neoplasm of overlapping sites of urinary organs (principal); R53.83 Other fatigue
CPT/HCPCS: 80053; 84443

== ENCOUNTER → 2023-01-25 | Outpatient (CLI) | payer MEDICARE, OTHER | END | disposition home or self-care (01) | LOC: LAB 14:45 → LAB SHORT 14:45 | DX: N39.0 Urinary tract infection, site not specified (principal) | CPT/HCPCS: 87086 ==

== ENCOUNTER 2023-02-04 10:36 | Emergency (ER) | payer MEDICARE, OTHER ==
[~2023-02-04] VITALS: Ht 165.1 cm; Wt 71.7 kg
[2023-02-04 11:02] VITALS: BP 163/77
[2023-02-04 11:43] LABS: Source, Urine Clean Catch
[2023-02-04 11:51] LABS: Appearance, Urine Cloudy (Clear); Bilirubin, Urine Neg (Neg); Blood, Urine 5+ (Neg); Color, Urine Yellow (P-Yellow); Glucose Qualitative, Urine Neg (Neg); Ketones, Urine Neg (Neg); Leukocyte Esterase, Urine 3+ (Neg); Nitrite, Urine Neg (Neg); Protein, Urine 3+ (Neg); Urobilinogen, Urine NORM (Normal)
[2023-02-04 12:02] LABS: Red Blood Cells, Urine TNTC /hpf (0-2)
[2023-02-04 12:03] LABS: Bacteria Few /hpf; Mucus Light (0-Heavy); Squamous Epithelial Cells Few /hpf (Few); Transitional Epithelial Cells Rare /hpf (0-Rare); White Blood Cells, Urine 25-50 /hpf (0-5)
[2023-02-05] MEDS ORDERED: Voltaren100 GM TOP (03:19)
== END 2023-02-04 13:32 | disposition home or self-care (01) ==
LOC: ER 10:36
PROVIDERS: Physician Assistant
DX: M54.6 Pain in thoracic spine (principal); Z91.030 Bee allergy status; Z88.8 Allergy status to other drugs, medicaments and biological substances; Z79.899 Other long term (current) drug therapy; Z79.82 Long term (current) use of aspirin; I12.9 Hypertensive chronic kidney disease with stage 1 through stage 4 chronic kidney disease, or unspecified chronic kidney disease; E78.5 Hyperlipidemia, unspecified; N18.9 Chronic kidney disease, unspecified; E11.22 Type 2 diabetes mellitus with diabetic chronic kidney disease; E03.9 Hypothyroidism, unspecified; G47.30 Sleep apnea, unspecified; I48.91 Unspecified atrial fibrillation
CPT/HCPCS: 72070; 72100; 81001; 87086; 96372; 99283-25; J1885

== ENCOUNTER 2023-02-05 02:09 | Emergency (ER) | payer MEDICARE, OTHER ==
[~2023-02-05] VITALS: Ht 165.1 cm; Wt 53.1 kg
[2023-02-05 02:39] VITALS: BP 167/64
[2023-02-05] MEDS ORDERED: Voltaren100 GM TOP (03:19)
== END 2023-02-05 03:35 | disposition home or self-care (01) ==
LOC: ER 02:09
DX: R20.0 Anesthesia of skin (principal); M48.54XA Collapsed vertebra, not elsewhere classified, thoracic region, initial encounter for fracture; I12.9 Hypertensive chronic kidney disease with stage 1 through stage 4 chronic kidney disease, or unspecified chronic kidney disease; E11.22 Type 2 diabetes mellitus with diabetic chronic kidney disease; N18.9 Chronic kidney disease, unspecified; I48.91 Unspecified atrial fibrillation; E03.9 Hypothyroidism, unspecified; J45.909 Unspecified asthma, uncomplicated; Z91.030 Bee allergy status; Z88.8 Allergy status to other drugs, medicaments and biological substances; Z79.01 Long term (current) use of anticoagulants; Z79.82 Long term (current) use of aspirin; Z79.899 Other long term (current) drug therapy
CPT/HCPCS: 99283; A9270

== ENCOUNTER 2023-02-07 03:41 | Emergency (ER) | payer MEDICARE, OTHER ==
[~2023-02-07] VITALS: Ht 165.1 cm; Wt 53.1 kg
[~2023-02-07 03:41] MED LIST changes: +Voltaren100 GM TOP
[2023-02-07 03:48] VITALS: BP 189/79
[2023-02-07] MEDS ORDERED: OXYC5 PO (05:53)
== END 2023-02-07 06:46 | disposition home or self-care (01) ==
LOC: ER 03:41
DX: M48.54XA Collapsed vertebra, not elsewhere classified, thoracic region, initial encounter for fracture (principal); G89.29 Other chronic pain; M54.50 Low back pain, unspecified; I12.9 Hypertensive chronic kidney disease with stage 1 through stage 4 chronic kidney disease, or unspecified chronic kidney disease; E11.22 Type 2 diabetes mellitus with diabetic chronic kidney disease; N18.9 Chronic kidney disease, unspecified; E03.9 Hypothyroidism, unspecified; J45.909 Unspecified asthma, uncomplicated; I48.91 Unspecified atrial fibrillation; E78.5 Hyperlipidemia, unspecified; Z88.8 Allergy status to other drugs, medicaments and biological substances; Z91.030 Bee allergy status; Z79.01 Long term (current) use of anticoagulants; Z79.82 Long term (current) use of aspirin; Z79.890 Hormone replacement therapy; Z79.899 Other long term (current) drug therapy
CPT/HCPCS: 99283; A9270

== ENCOUNTER 2023-02-11 05:03 | Inpatient (IN) | payer MEDICARE, OTHER ==
[2023-02-11] VITALS (61 sets, daily range): BP systolic 110–205; BP diastolic 57–132
[~2023-02-11] VITALS: Ht 165.1 cm; Wt 68.0 kg
[~2023-02-11 05:03] MED LIST changes: -METO50 PO; +OXYC5 PO
[2023-02-11 05:34] LABS: BASOPHILS ABSOLUTE AUTO 0.01 K/mm3 (0.00-0.23); BASOPHILS PERCENT AUTO 0 % (0-2); EOSINOPHILS ABSOLUTE AUTO 0.35 K/mm3 (0.00-0.68); EOSINOPHILS PERCENT AUTO 4 % (0-6); Hematocrit 21.5 % (33.0-51.0); Hemoglobin 6.4 g/dL (11.5-16.0); IMMATURE GRAN ABSOLUTE AUTO 0.03 K/mm3 (0.00-0.10); IMMATURE GRAN PERCENT AUTO 0 % (0-1); LYMPHOCYTES ABSOLUTE AUTO 0.73 K/mm3 (0.84-5.20); LYMPHOCYTES PERCENT AUTO 9 % (21-46); MONOCYTES ABSOLUTE AUTO 0.66 K/mm3 (0.16-1.47); MONOCYTES PERCENT AUTO 8 % (4-13); Mean Corpuscular HGB 22.1 pg (26.0-34.0); Mean Corpuscular HGB Conc 29.8 g/dL (31.5-36.5); Mean Corpuscular Volume 74 fL (80-100); Mean Platelet Volume 9.7 fL (9.1-12.4); NEUTROPHILS ABSOLUTE AUTO 6.11 K/mm3 (1.96-9.15); NEUTROPHILS PERCENT AUTO 77 % (41-73); Platelet Count 270 K/mm3 (150-400); RDW Coefficient Variation 16.6 % (11.7-14.2); RDW Standard Deviation 44.5 fL (35.1-46.3); White Blood Cell Count 7.89 K/mm3 (4.00-11.30)
[2023-02-11 05:53] LABS: Albumin, Blood 2.9 g/dL (3.4-5.0); Albumin/Globulin Ratio 0.7 (0.8-1.8); Bilirubin, Total 0.7 mg/dL (0.1-1.0); Bun/Creatinine Ratio 25.2 (12.0-20.0); Calcium, Blood 8.6 mg/dL (8.5-10.1); Creatinine, Blood 1.15 mg/dL (0.40-1.00); Globulin, Blood 4.1 g/dL (2.2-4.0); Magnesium, Blood 2.2 mg/dL (1.6-2.4); Phosphorus, Blood 3.7 mg/dL (2.5-4.9)
[2023-02-11 06:01] LABS: International Normalized Ratio 1.08; Prothrombin Time Results 11.3 Sec (9.7-11.5)
[2023-02-11 07:05] LABS: Influenza A, PCR NEGATIVE (NEGATIVE); Influenza B, PCR NEGATIVE (NEGATIVE); Resp Syncytial Virus, PCR NEGATIVE (NEGATIVE); SARS-Cov-2 (COVID-19) PCR, MMC NEGATIVE (NEGATIVE)
--- NOTE | 2023-02-11 11:10 | NUR ---
Pt. is awake in bed and welcomes this size marker. Pt. is pleasant. Pt. verbalized that she remembers this size marker from a previous visit. Facilitated a life review. Pt. displays evidence of awareness and engagement. Pt. verbalizes an expectation that she might be discharged before this evening. Prayed with Pt. Pt. verbalized gratitude for the spiritual care visit.
[2023-02-11 13:26] LABS: Cholesterol 101 mg/dL (50-200); HDL Cholesterol 50 mg/dL (>39); LDL/HDL RATIO 0.7; Low Density Lipoprotein Chol 35 mg/dL (0-110); Triglycerides 82 mg/dL (30-160); Very Low Density Lipoprot Chol 16 mg/dL (6-32)
[2023-02-11 14:21] LABS: Hematocrit 32.3 % (33.0-51.0); Hemoglobin 9.8 g/dL (11.5-16.0)
[2023-02-11] MEDS ORDERED: CALCIUM CARBON500 M1 PO (17:56)
[2023-02-11] MEDS ORDERED: ACET500 PO (17:56)
[2023-02-11] MEDS ORDERED: ALCIS59.15 ML TOP (17:56)
--- NOTE | 2023-02-11 18:38 | NUR ---
Shift summary. Pt arrived to icu from cathode builder at approximately 0830. Pt initially c/o chest pain, resolved with nitro administration. On RA, alert and oriented. Unit of blood transfused for low H&H, shortly after administration, pt c/o increasing shortness of breath. Dr Mustafa notified and assessed pt. Orders obtained for lasix and bipap, see chart. Pt up to commode frequently during shift. As of 1729, SOB much improved, bipap off pt, decreased work of breathing noted, pt able to speak in complete sentences. Nitro infusing at 25 mcg/min to maintain BP below 150 systolic. See chart for further details. Will report off to nightshift RN.
[2023-02-12] VITALS (56 sets, daily range): BP systolic 91–156; BP diastolic 59–111
[2023-02-12 03:39] LABS: BASOPHILS ABSOLUTE AUTO 0.02 K/mm3 (0.00-0.23); BASOPHILS PERCENT AUTO 0 % (0-2); EOSINOPHILS ABSOLUTE AUTO 0.02 K/mm3 (0.00-0.68); EOSINOPHILS PERCENT AUTO 0 % (0-6); Hematocrit 27.5 % (33.0-51.0); Hemoglobin 8.9 g/dL (11.5-16.0); IMMATURE GRAN ABSOLUTE AUTO 0.06 K/mm3 (0.00-0.10); IMMATURE GRAN PERCENT AUTO 1 % (0-1); LYMPHOCYTES ABSOLUTE AUTO 1.12 K/mm3 (0.84-5.20); LYMPHOCYTES PERCENT AUTO 11 % (21-46); MONOCYTES ABSOLUTE AUTO 0.82 K/mm3 (0.16-1.47); MONOCYTES PERCENT AUTO 8 % (4-13); Mean Corpuscular HGB 23.1 pg (26.0-34.0); Mean Corpuscular HGB Conc 32.4 g/dL (31.5-36.5); Mean Corpuscular Volume 71 fL (80-100); Mean Platelet Volume 9.9 fL (9.1-12.4); NEUTROPHILS ABSOLUTE AUTO 8.27 K/mm3 (1.96-9.15); NEUTROPHILS PERCENT AUTO 80 % (41-73); Platelet Count 338 K/mm3 (150-400); RDW Coefficient Variation 16.9 % (11.7-14.2); RDW Standard Deviation 42.8 fL (35.1-46.3); Red Blood Cell Count 3.85 M/mm3 (3.80-5.20); White Blood Cell Count 10.31 K/mm3 (4.00-11.30)
[2023-02-12 04:01] LABS: Bun/Creatinine Ratio 24.8 (12.0-20.0); Calcium, Blood 8.3 mg/dL (8.5-10.1); Creatinine, Blood 1.01 mg/dL (0.40-1.00); Potassium, Blood 3.1 mmol/L (3.5-5.5)
--- NOTE | 2023-02-12 06:08 | NUR ---
SHIFT SUMMARY: NO ACUTE CHANGES OVERNIGHT. PT REMAINS a7O X 4, PLEASANT AND COOPERATIVE WITH CARE. PT HAS BEEN ON RA WITH SPO2 96<, AND C/O EXERTIONAL DYSPNEA BUT NO DROP IN SPO2 NOTED. PT HAS BEEN IN AFIB WITH HR 110-140'S; MEDICATED WITH LOPRESSER ONCE WITH LITTLE AFFECT. PT DENIES ANY CHEST PAIN OR PRESSURE AT THIS TIME; SBP HAVE BEEN STABLE AND HAVE BEEN SITTING IN THE 120'S. NITRO GTT TITRATED OFF THIS SHIFT. PT HAS BEEN DRINKING WATER BUT HAS DECREASED APPETITE AND DECLINES ANY FOOD. PT UP TO BEDSIDE COMMODE WITH SBA FOR CORDS; STEADY ON FEET AND HAS INDEPENDENT BED MOBILITY. PT SKIN OVERALL INTACT AND WARM. 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 PT HAD C/O PAIN THROUGHOUT THE NIGHT; TYLENOL TRIED AND DID NOT HAVE THERAPEUTIC AFFECT, PROVIDER CALLED AND ORDERS RECIEVED FOR NORCO AND PAIN NOW MANAGED. BED LOWERED, CALL LIGHT IN REACH, WILL REPORT OFF TO ONCOMING RN.
--- NOTE | 2023-02-12 07:31 | NUR ---
Assumed care at 0700, bedside report received from nightshift RN. Pt up to bedside commode during report. Alert and oriented, easily ambulates from bed to commode and back. Some mild exertional dypsnea noted. Pt denies needs at time of report. Saline locked. Will continue to monitor.
[2023-02-12 14:40] LABS: Calcium, Blood 8.9 mg/dL (8.5-10.1); Creatinine, Blood 1.2 mg/dL (0.40-1.00); Potassium, Blood 4.2 mmol/L (3.5-5.5)
--- NOTE | 2023-02-12 19:00 | NUR ---
Summary. Pt improved this shift. Some exertional dyspnea but none at rest. Up to chair for meals and corner commode. Pt is ambulating easily. Shower completed this shift. No acute events, see chart for details. Will report off to nightshift RN.
[2023-02-13] VITALS (40 sets, daily range): BP systolic 91–152; BP diastolic 54–110
[2023-02-13 03:31] LABS: BASOPHILS ABSOLUTE AUTO 0.03 K/mm3 (0.00-0.23); BASOPHILS PERCENT AUTO 0 % (0-2); EOSINOPHILS ABSOLUTE AUTO 0.11 K/mm3 (0.00-0.68); EOSINOPHILS PERCENT AUTO 1 % (0-6); Hematocrit 31.7 % (33.0-51.0); Hemoglobin 9.8 g/dL (11.5-16.0); IMMATURE GRAN ABSOLUTE AUTO 0.03 K/mm3 (0.00-0.10); IMMATURE GRAN PERCENT AUTO 0 % (0-1); LYMPHOCYTES ABSOLUTE AUTO 1.97 K/mm3 (0.84-5.20); LYMPHOCYTES PERCENT AUTO 21 % (21-46); MONOCYTES ABSOLUTE AUTO 1.06 K/mm3 (0.16-1.47); MONOCYTES PERCENT AUTO 12 % (4-13); Mean Corpuscular HGB 22.7 pg (26.0-34.0); Mean Corpuscular HGB Conc 30.9 g/dL (31.5-36.5); Mean Corpuscular Volume 74 fL (80-100); Mean Platelet Volume 9.7 fL (9.1-12.4); NEUTROPHILS ABSOLUTE AUTO 6.01 K/mm3 (1.96-9.15); NEUTROPHILS PERCENT AUTO 65 % (41-73); Platelet Count 406 K/mm3 (150-400); RDW Coefficient Variation 17.5 % (11.7-14.2); RDW Standard Deviation 44.9 fL (35.1-46.3); Red Blood Cell Count 4.31 M/mm3 (3.80-5.20); White Blood Cell Count 9.21 K/mm3 (4.00-11.30)
[2023-02-13 03:52] LABS: Albumin, Blood 3.4 g/dL (3.4-5.0); Albumin/Globulin Ratio 0.7 (0.8-1.8); Bilirubin, Total 1.1 mg/dL (0.1-1.0); Bun/Creatinine Ratio 26.5 (12.0-20.0); Calcium, Blood 9.1 mg/dL (8.5-10.1); Creatinine, Blood 1.17 mg/dL (0.40-1.00); Potassium, Blood 3.8 mmol/L (3.5-5.5); Total Protein, Blood 8.4 g/dL (6.4-8.2)
[2023-02-13 06:25] LABS: Source, Urine Clean Catch
--- NOTE | 2023-02-13 06:26 | NUR ---
SHIFT SUMMARY: NO ACUTE CHANGES OVERNIGHT. PT REMAINS A&O X 4, PLEASANT AND COOPERATIVE WITH CARE. PT ON RA THROUGHOUT THE SHIFT WITH SPO2 96<; PT C/O EXERTIONAL DYSPNEA BUT NO DROPS IN SPO2 NOTED. PT AFIB RVR FOR MAJORITY OF THE SHIFT WITH HR 120-140'S, PT DENIES CHEST PAIN/PRESSURE. PT UP TO TOILET MULTIPLE TIMES FOR VOIDING; INDEPENDENT WITH AMBULATING/TRANSFERS, SBA FOR CORDS. UA SENT OFF THIS MORNING. BED LOWERED, CALL LIGHT IN REACH, WILL REPORT OFF TO ONCOMING RN.
[2023-02-13 06:33] LABS: Appearance, Urine Cloudy (Clear); Bilirubin, Urine Neg (Neg); Blood, Urine 5+ (Neg); Color, Urine Yellow (P-Yellow); Glucose Qualitative, Urine Neg (Neg); Ketones, Urine Neg (Neg); Leukocyte Esterase, Urine 3+ (Neg); Nitrite, Urine Neg (Neg); Protein, Urine 2+ (Neg); Specific Gravity, Urine 1.015 (1.003-1.022); Urobilinogen, Urine NORM (Normal)
[2023-02-13 07:11] LABS: Red Blood Cells, Urine 50-100 /hpf (0-2); White Blood Cells, Urine 50-100 /hpf (0-5)
[2023-02-13 07:13] LABS: Bacteria Many /hpf; Squamous Epithelial Cells Rare /hpf (Few)
[2023-02-13 07:14] LABS: Calcium Oxalate Crystals Rare /hpf; Mucus Light (0-Heavy)
--- NOTE | 2023-02-13 18:36 | NUR ---
Shift summary. Pt rested in bed for much of shift, up to chair for meals and for comfort intermittently. Pt continuing to have runs of tachycardia, Dr Ricardo notified, orders obtained for digoxin for rate control. No other acute events this shift. See chart for further details. Will report off to nightshift RN.
--- NOTE | 2023-02-14 05:42 | NUR ---
SHIFT SUMMERY PT IS ALERT AND ORIENTED X4, MAEW. PT IS INDEPENDANT W/AMBULATION. SHE HAS BEEN AFIB,AFLUTTER, AND SR AT TIMES ON THE PREPARED FOODS PRODUCTION TEAM MEMBER. PT HAD AN EPISODE OF TACHYCARDIA IN THE 140S, MEDICATED PER EMAR W/LOPRESSOR. HR RETURNED TO 80S AFTER MEDICATION. BP HAS BEEN WNL THROUGHOUT THE NIGHT. AFEBRILE. PT IS ON ROOM AIR, OXYGEN SAT HAVE BEEN 100% THROUGHT THE NIGHT.
--- NOTE | 2023-02-14 07:00 | NUR ---
ASSUMPTION OF CARE PT IS ALERT AND ORIENTED. PARTICIPATES IN BEDSIDE REPORT. BED IN LOW POSITION, CALL LIGHT WITHIN REACH. SEE SHIFT ASSESMENT.
[2023-02-14 07:08] LABS: BASOPHILS ABSOLUTE AUTO 0.04 K/mm3 (0.00-0.23); BASOPHILS PERCENT AUTO 0 % (0-2); EOSINOPHILS ABSOLUTE AUTO 0.12 K/mm3 (0.00-0.68); EOSINOPHILS PERCENT AUTO 1 % (0-6); Hematocrit 30.4 % (33.0-51.0); Hemoglobin 9.5 g/dL (11.5-16.0); IMMATURE GRAN ABSOLUTE AUTO 0.04 K/mm3 (0.00-0.10); IMMATURE GRAN PERCENT AUTO 0 % (0-1); LYMPHOCYTES ABSOLUTE AUTO 1.55 K/mm3 (0.84-5.20); LYMPHOCYTES PERCENT AUTO 16 % (21-46); MONOCYTES ABSOLUTE AUTO 0.83 K/mm3 (0.16-1.47); MONOCYTES PERCENT AUTO 8 % (4-13); Mean Corpuscular HGB 23.1 pg (26.0-34.0); Mean Corpuscular HGB Conc 31.3 g/dL (31.5-36.5); Mean Corpuscular Volume 74 fL (80-100); Mean Platelet Volume 9.4 fL (9.1-12.4); NEUTROPHILS ABSOLUTE AUTO 7.42 K/mm3 (1.96-9.15); NEUTROPHILS PERCENT AUTO 74 % (41-73); Platelet Count 385 K/mm3 (150-400); RDW Coefficient Variation 18.1 % (11.7-14.2); RDW Standard Deviation 46.9 fL (35.1-46.3); Red Blood Cell Count 4.12 M/mm3 (3.80-5.20)
[2023-02-14 07:21] LABS: Bun/Creatinine Ratio 36.8 (12.0-20.0); Creatinine, Blood 0.95 mg/dL (0.40-1.00)
[2023-02-14 09:50] VITALS: BP 116/68
[2023-02-14 13:25] VITALS: BP 114/92
--- NOTE | 2023-02-14 15:35 | NUR ---
UPDATE PT REMAINS ALERT AND ORIENTED. SHE HAS BEEN INDEPENDENT WITH ADLS AND USES CALL LIGHT APPROPRIATELY. HR 60S-80S AT REST, INCREASES TO 130S-140S WITH ACTIVITY. BP STABLE THROUGOUT SHIFT. PT HAS VOIDED SEVERAL TIMES THROUGHOUT THE DAY. PLAN TO TRANSITION PT TO MEDICAL FLOOR WITH TELEMETRY.
--- NOTE | 2023-02-14 16:30 | NUR ---
TRANSFER PT TRANSFERRED TO [facility] VIA WHEELCHAIR WITH ALL BELONGINGS.
[2023-02-14 16:38] VITALS: BP 120/64
--- NOTE | 2023-02-14 18:06 | NUR ---
PT TRANSFERED FROM ICU. ALERT AND ORIENTED X4. INDEPENDENT IN THE ROOM. ABLE TO MAKE NEEDS KNOWN.
[2023-02-14 19:21] VITALS: BP 134/79
[2023-02-15 03:18] VITALS: BP 132/68
[2023-02-15 05:11] LABS: BASOPHILS ABSOLUTE AUTO 0.05 K/mm3 (0.00-0.23); BASOPHILS PERCENT AUTO 1 % (0-2); EOSINOPHILS ABSOLUTE AUTO 0.11 K/mm3 (0.00-0.68); EOSINOPHILS PERCENT AUTO 2 % (0-6); Hematocrit 33.5 % (33.0-51.0); Hemoglobin 10.3 g/dL (11.5-16.0); IMMATURE GRAN ABSOLUTE AUTO 0.04 K/mm3 (0.00-0.10); IMMATURE GRAN PERCENT AUTO 1 % (0-1); LYMPHOCYTES ABSOLUTE AUTO 1.94 K/mm3 (0.84-5.20); LYMPHOCYTES PERCENT AUTO 26 % (21-46); MONOCYTES ABSOLUTE AUTO 0.68 K/mm3 (0.16-1.47); MONOCYTES PERCENT AUTO 9 % (4-13); Mean Corpuscular HGB 22.9 pg (26.0-34.0); Mean Corpuscular HGB Conc 30.7 g/dL (31.5-36.5); Mean Corpuscular Volume 74 fL (80-100); Mean Platelet Volume 9.7 fL (9.1-12.4); NEUTROPHILS ABSOLUTE AUTO 4.52 K/mm3 (1.96-9.15); NEUTROPHILS PERCENT AUTO 62 % (41-73); Platelet Count 430 K/mm3 (150-400); RDW Coefficient Variation 18.9 % (11.7-14.2); RDW Standard Deviation 48.7 fL (35.1-46.3); White Blood Cell Count 7.34 K/mm3 (4.00-11.30)
[2023-02-15 06:03] LABS: Alanine Aminotransfer (ALT/SGP 42 U/L (12-78); Albumin, Blood 3.6 g/dL (3.4-5.0); Albumin/Globulin Ratio 0.7 (0.8-1.8); Alk Phos 179 U/L (50-136); Anion Gap 7 mmol/L (6-16); Aspartate Aminotrans (AST/SGOT 37 U/L (12-37); Bilirubin, Total 0.7 mg/dL (0.1-1.0); Blood Urea Nitrogen 38 mg/dL (8-24); Bun/Creatinine Ratio 29.2 (12.0-20.0); CO2, Blood 28 mmol/L (21-32); Calcium, Blood 9.4 mg/dL (8.5-10.1); Chloride, Blood 102 mmol/L (98-108); Digoxin (Lanoxin) 0.96 ug/mL (0.80-2.00); Glomerular Filtration Rate 41 (60-); Glucose, Blood 113 mg/dL (70-99); Potassium, Blood 3.9 mmol/L (3.5-5.5); Sodium, Blood 137 mmol/L (136-145); Total Protein, Blood 8.6 g/dL (6.4-8.2)
--- NOTE | 2023-02-15 06:29 | NUR ---
Shift Summary Pt had elevated HR into the 140's while getting up frequently to void after recieving Lasix during the day. HR would recover back into the 80's and 90's after resting for 5 minutes. Pt c/o of back pain and requested her home asper cream, which was scanned by pharmacy and used in the ICU, but we could not locate it in her belongings. She recived 1 PRN norco and slept well t/o the night.
[2023-02-15 07:11] VITALS: BP 111/70
--- NOTE | 2023-02-15 12:01 | NUR ---
"Spiritual Care Visit | Pt. Request Pt. is awake in a recliner and welcomes my visit. This student success advisor had visited this Pt. previously so rapport was quickly re-established. Facilitated conversation about Pts. medical progress, and also considered matters of elodia and belief. Pt. displayed evidence of awareness, engagement, and motivation to fully recover. Prayed with the Pt. Pt. verbalized gratitude for the spiritual julian visit."
[2023-02-15 13:56] VITALS: BP 120/66
--- NOTE | 2023-02-15 14:03 | NUR ---
PATIENT REPORTING SYMPTOMS OF DIZZINESS AND SHAKING. VS WNL FOR PATIENT. DR CROSS NOTIFIED. SHE STATED SHE WILL BE PUTTING A HOLD ON DISCHARGE AND ORDERING A DOSE OF MECLIZINE 25MG TO BE GIVEN.
[2023-02-15 15:17] LABS: Digoxin (Lanoxin) 1.26 ug/mL (0.80-2.00)
[2023-02-15] MEDS ORDERED: LISI5 PO (16:11)
[2023-02-15] MEDS ORDERED: CEFP200 PO (16:28)
[2023-02-15] MEDS ORDERED: DIGOX125 MC1 PO (16:30)
[2023-02-15] MEDS ORDERED: NITR.4SL SL (16:31)
[2023-02-15] MEDS ORDERED: POTCHL20ER PO (16:32)
[2023-02-15] MEDS ORDERED: FURO40 PO (16:33)
[2023-02-15] MEDS ORDERED: VISBIOME 112.51 EACH PO (16:33)
--- NOTE | 2023-02-15 16:52 | NUR ---
DISCHARGE IV AND TELEMETRY REMOVED. PT DENIES ANY CP AT THIS TIME. REPORTS VERTIGO AND HEADACHE WITH EXERTION. DOCTORS ARE AWARE. REVIEWED DISCHARGE PACKET AND EDUCATION WITH PATIENT. NO QUESTIONS OR CONCERNS NOTED. PATIENT LEFT BY TAXI AT 1645.
== END 2023-02-15 17:01 | disposition home health service (06) | DRG 281 ==
LOC: ER 05:03 → ICUE 05:08 → ER 08:24 → ICUE 08:24 → MEDS 02-14 16:33
PROVIDERS: Emergency Medicine; Family Medicine; Internal Medicine; Internal Medicine Interventional Cardiology; Student in an Organized Health Care Education/Training Program; ADMIT Internal Medicine
DX: I48.0 Paroxysmal atrial fibrillation (principal); I21.3 ST elevation (STEMI) myocardial infarction of unspecified site; I13.0 Hypertensive heart and chronic kidney disease with heart failure and stage 1 through stage 4 chronic kidney disease, or unspecified chronic kidney disease; I50.42 Chronic combined systolic (congestive) and diastolic (congestive) heart failure; N17.9 Acute kidney failure, unspecified; N18.30 Chronic kidney disease, stage 3 unspecified; I25.10 Atherosclerotic heart disease of native coronary artery without angina pectoris; J44.9 Chronic obstructive pulmonary disease, unspecified; H53.8 Other visual disturbances; E78.5 Hyperlipidemia, unspecified; E89.0 Postprocedural hypothyroidism; D63.1 Anemia in chronic kidney disease; Z79.01 Long term (current) use of anticoagulants; Z95.2 Presence of prosthetic heart valve; Z95.1 Presence of aortocoronary bypass graft; Z95.0 Presence of cardiac pacemaker; Z88.8 Allergy status to other drugs, medicaments and biological substances; Z91.038 Other insect allergy status; Z79.82 Long term (current) use of aspirin; Z79.02 Long term (current) use of antithrombotics/antiplatelets; Z79.899 Other long term (current) drug therapy; Z79.890 Hormone replacement therapy; Z87.891 Personal history of nicotine dependence; Z86.79 Personal history of other diseases of the circulatory system; Z86.73 Personal history of transient ischemic attack (TIA), and cerebral infarction without residual deficits; Z90.49 Acquired absence of other specified parts of digestive tract; Z90.89 Acquired absence of other organs; Z93.6 Other artificial openings of urinary tract status
CPT/HCPCS: 0241U; 36415; 36430; 71046; 74177; 80048; 80053; 80061; 80162; 81001; 83036; 83605; 83735; 83880; 84100; 84443; 84484; 85014; 85018; 85025; 85610; 85730; 86850; 86900; 86901; 86923; 87086; 93005; 93010; 93306; 94660; 94762; 96374; 96375; 96376; 97116; 97161; 97165; 97530; 99285-25; A9270; G0378; J0696; J1160; J1940; J2250; J3010; J3480; J7030; J7050; P9016; Q9967

== ENCOUNTER 2023-02-16 17:34 | Observation (INO) | payer MEDICARE, OTHER ==
[~2023-02-16] VITALS: Ht 165.1 cm; Wt 47.9 kg
[~2023-02-16 17:34] MED LIST changes: +ACET500 PO; +ALCIS59.15 ML TOP; +CALCIUM CARBON500 M1 PO; +DIGOX125 MC1 PO; +FURO40 PO; +LISI5 PO; +NITR.4SL SL; +POTCHL20ER PO
[2023-02-16 18:04] LABS: BASOPHILS ABSOLUTE AUTO 0.04 K/mm3 (0.00-0.23); BASOPHILS PERCENT AUTO 1 % (0-2); EOSINOPHILS ABSOLUTE AUTO 0.11 K/mm3 (0.00-0.68); EOSINOPHILS PERCENT AUTO 1 % (0-6); Hematocrit 31.7 % (33.0-51.0); Hemoglobin 9.6 g/dL (11.5-16.0); IMMATURE GRAN ABSOLUTE AUTO 0.04 K/mm3 (0.00-0.10); IMMATURE GRAN PERCENT AUTO 1 % (0-1); LYMPHOCYTES ABSOLUTE AUTO 1.99 K/mm3 (0.84-5.20); LYMPHOCYTES PERCENT AUTO 23 % (21-46); MONOCYTES ABSOLUTE AUTO 0.88 K/mm3 (0.16-1.47); MONOCYTES PERCENT AUTO 10 % (4-13); Mean Corpuscular HGB 22.7 pg (26.0-34.0); Mean Corpuscular HGB Conc 30.3 g/dL (31.5-36.5); Mean Corpuscular Volume 75 fL (80-100); Mean Platelet Volume 9.3 fL (9.1-12.4); NEUTROPHILS ABSOLUTE AUTO 5.45 K/mm3 (1.96-9.15); NEUTROPHILS PERCENT AUTO 64 % (41-73); Platelet Count 428 K/mm3 (150-400); RDW Standard Deviation 50.4 fL (35.1-46.3); Red Blood Cell Count 4.22 M/mm3 (3.80-5.20); White Blood Cell Count 8.51 K/mm3 (4.00-11.30)
[2023-02-16 18:21] LABS: Albumin, Blood 3.6 g/dL (3.4-5.0); Albumin/Globulin Ratio 0.8 (0.8-1.8); Bilirubin, Total 0.4 mg/dL (0.1-1.0); Bun/Creatinine Ratio 28.7 (12.0-20.0); Calcium, Blood 9.5 mg/dL (8.5-10.1); Creatinine, Blood 2.37 mg/dL (0.40-1.00); Globulin, Blood 4.5 g/dL (2.2-4.0); Potassium, Blood 4.7 mmol/L (3.5-5.5); Total Protein, Blood 8.1 g/dL (6.4-8.2)
[2023-02-16 21:05] LABS: International Normalized Ratio 1.09; Prothrombin Time Results 11.4 Sec (9.7-11.5)
[2023-02-16 21:07] LABS: Anti-Xa UFH, PHA Monitoring 1.35 IU/mL
[2023-02-17 00:57] VITALS: BP 137/55
[2023-02-17 03:52] VITALS: BP 153/54
[2023-02-17 04:21] LABS: Bun/Creatinine Ratio 33.3 (12.0-20.0); Calcium, Blood 9.3 mg/dL (8.5-10.1); Creatinine, Blood 2.04 mg/dL (0.40-1.00); Potassium, Blood 4.3 mmol/L (3.5-5.5)
--- NOTE | 2023-02-17 06:34 | NUR ---
SHIFT SUMMARY PATIENT ARRIVED TO PCU 03 VIA STRETCHER. PATIENT IS ALERT AND ORIENTED X4 AND WAS ABLE TO SELF TRANSFER TO THE BED. SHE DENIED HAVING ANY CHEST PAIN AND SHORTNESS OF BREATH OVERNIGHT. SPO2 HIGH 90'S ON ROOM AIR. VITAL SIGNS STABLE, ATRIAL PACED ON TELE, TROPONIN PEAKED AT 1128. NO ACUTE ISSUES NOTED OVERNIGHT. WILL CONTINUE TO MONITOR. CALL LIGHT WITHIN REACH.
[2023-02-17 07:48] VITALS: BP 137/61
--- NOTE | 2023-02-17 13:13 | NUR ---
DISCHARGE HOME PT A&O X4. VSS. SPO2 > 92% ON RA. MONITOR SHOWING INTERMITTENT PACING VS AFIB. PT ANXIOUS ABOUT NEW HOME MEDICATIONS. MD PRYOR AT BEDSIDE THIS AM, REVIEWING PTs HEALTH CONDITION, MEDS & CARE IN GREAT DETAIL. PT MORE AT EASE AFTER MD VISIT. W/ ORDERS FOR DISCHARGE BACK TO HOME W/ HH. DISCHARGE INSTRUCTIONS REVIEWED W/ PT & SENT HOME W/ PT. PIVs REMOVED. PT TAKEN OUT IN WHEELCHAIR W/ BELONGINGS @ APPROX 1130.
== END 2023-02-17 11:31 | disposition home or self-care (01) ==
LOC: ER 17:34 → MEDS 17:35 → ERHOLD 17:35 → MEDS 17:35 → ER 17:35 → EDBEDREQ 23:06 → PCU 02-17 00:46
PROVIDERS: Emergency Medicine; Student in an Organized Health Care Education/Training Program; ADMIT Internal Medicine
DX: I48.0 Paroxysmal atrial fibrillation (principal); I25.2 Old myocardial infarction; I25.10 Atherosclerotic heart disease of native coronary artery without angina pectoris; Z95.1 Presence of aortocoronary bypass graft; N17.9 Acute kidney failure, unspecified; N18.30 Chronic kidney disease, stage 3 unspecified; I12.9 Hypertensive chronic kidney disease with stage 1 through stage 4 chronic kidney disease, or unspecified chronic kidney disease; E78.5 Hyperlipidemia, unspecified; E03.9 Hypothyroidism, unspecified; D63.1 Anemia in chronic kidney disease; Z95.0 Presence of cardiac pacemaker; Z87.891 Personal history of nicotine dependence
CPT/HCPCS: 36415; 71046; 80048; 80053; 83880; 84484; 85025; 85520; 85610; 85730; 93005; 93010; 96365; 99285-25; A9270; G0378; J1644

== ENCOUNTER 2023-02-26 08:46 | Emergency (ER) | payer MEDICARE, OTHER ==
[~2023-02-26] VITALS: Ht 165.1 cm; Wt 52.2 kg
[2023-02-26 09:41] LABS: BASOPHILS ABSOLUTE AUTO 0.02 K/mm3 (0.00-0.23); BASOPHILS PERCENT AUTO 0 % (0-2); EOSINOPHILS ABSOLUTE AUTO 0.22 K/mm3 (0.00-0.68); EOSINOPHILS PERCENT AUTO 3 % (0-6); Hematocrit 30.4 % (33.0-51.0); Hemoglobin 9.1 g/dL (11.5-16.0); IMMATURE GRAN ABSOLUTE AUTO 0.03 K/mm3 (0.00-0.10); IMMATURE GRAN PERCENT AUTO 0 % (0-1); LYMPHOCYTES ABSOLUTE AUTO 1.03 K/mm3 (0.84-5.20); LYMPHOCYTES PERCENT AUTO 13 % (21-46); MONOCYTES ABSOLUTE AUTO 0.61 K/mm3 (0.16-1.47); MONOCYTES PERCENT AUTO 8 % (4-13); Mean Corpuscular HGB 23.3 pg (26.0-34.0); Mean Corpuscular HGB Conc 29.9 g/dL (31.5-36.5); Mean Corpuscular Volume 78 fL (80-100); Mean Platelet Volume 10.3 fL (9.1-12.4); NEUTROPHILS ABSOLUTE AUTO 6.25 K/mm3 (1.96-9.15); NEUTROPHILS PERCENT AUTO 77 % (41-73); Platelet Count 243 K/mm3 (150-400); RDW Coefficient Variation 20.3 % (11.7-14.2); Red Blood Cell Count 3.91 M/mm3 (3.80-5.20); White Blood Cell Count 8.16 K/mm3 (4.00-11.30)
[2023-02-26 09:58] LABS: Albumin, Blood 3.6 g/dL (3.4-5.0); Albumin/Globulin Ratio 0.8 (0.8-1.8); Bilirubin, Total 0.5 mg/dL (0.1-1.0); Bun/Creatinine Ratio 20.4 (12.0-20.0); Calcium, Blood 9.2 mg/dL (8.5-10.1); Creatinine, Blood 0.98 mg/dL (0.40-1.00); Globulin, Blood 4.3 g/dL (2.2-4.0); Potassium, Blood 4.2 mmol/L (3.5-5.5); Total Protein, Blood 7.9 g/dL (6.4-8.2)
[2023-02-26 12:00] VITALS: BP 182/63
== END 2023-02-26 12:10 | disposition home or self-care (01) ==
LOC: ER 08:46
PROVIDERS: Emergency Medicine
DX: R00.2 Palpitations (principal); Z95.0 Presence of cardiac pacemaker; Z79.82 Long term (current) use of aspirin; Z79.01 Long term (current) use of anticoagulants; Z79.899 Other long term (current) drug therapy; Z87.891 Personal history of nicotine dependence
CPT/HCPCS: 71046; 80053; 83880; 84484; 85025; 93005; 93010; 99285-25

== ENCOUNTER → 2023-03-03 | Outpatient (CLI) | payer MEDICARE, OTHER | LOC: LAB SHORT 12:36 → LAB 12:36 | DX: N30.01 Acute cystitis with hematuria (principal) | CPT/HCPCS: 87086 ==

== ENCOUNTER 2023-03-10 06:13 | Emergency (ER) | payer MEDICARE, OTHER ==
[~2023-03-10] VITALS: Ht 165.1 cm; Wt 52.2 kg
[2023-03-10 08:40] VITALS: BP 189/65
== END 2023-03-10 09:08 | disposition home or self-care (01) ==
LOC: ER 06:13
DX: I12.9 Hypertensive chronic kidney disease with stage 1 through stage 4 chronic kidney disease, or unspecified chronic kidney disease (principal); N18.9 Chronic kidney disease, unspecified; E11.22 Type 2 diabetes mellitus with diabetic chronic kidney disease; R20.2 Paresthesia of skin; Z91.030 Bee allergy status; Z88.8 Allergy status to other drugs, medicaments and biological substances; Z79.899 Other long term (current) drug therapy; Z79.82 Long term (current) use of aspirin; E03.9 Hypothyroidism, unspecified; G47.30 Sleep apnea, unspecified; I48.91 Unspecified atrial fibrillation
CPT/HCPCS: 93005; 93010; 99284-25; A9270

== ENCOUNTER → 2023-03-14 | Outpatient (CLI) | payer MEDICARE, OTHER ==
[2023-03-14 13:00] LABS: BASOPHILS ABSOLUTE AUTO 0.03 K/mm3 (0.00-0.23); BASOPHILS PERCENT AUTO 0 % (0-2); EOSINOPHILS ABSOLUTE AUTO 0.12 K/mm3 (0.00-0.68); EOSINOPHILS PERCENT AUTO 2 % (0-6); Hematocrit 32.9 % (33.0-51.0); Hemoglobin 9.7 g/dL (11.5-16.0); IMMATURE GRAN ABSOLUTE AUTO 0.03 K/mm3 (0.00-0.10); IMMATURE GRAN PERCENT AUTO 0 % (0-1); LYMPHOCYTES ABSOLUTE AUTO 1.63 K/mm3 (0.84-5.20); LYMPHOCYTES PERCENT AUTO 21 % (21-46); MONOCYTES ABSOLUTE AUTO 0.75 K/mm3 (0.16-1.47); MONOCYTES PERCENT AUTO 10 % (4-13); Mean Corpuscular HGB 23.4 pg (26.0-34.0); Mean Corpuscular HGB Conc 29.5 g/dL (31.5-36.5); Mean Corpuscular Volume 80 fL (80-100); Mean Platelet Volume 9.6 fL (9.1-12.4); NEUTROPHILS PERCENT AUTO 67 % (41-73); Platelet Count 249 K/mm3 (150-400); RDW Coefficient Variation 22.5 % (11.7-14.2); RDW Standard Deviation 63.7 fL (35.1-46.3); Red Blood Cell Count 4.14 M/mm3 (3.80-5.20); White Blood Cell Count 7.76 K/mm3 (4.00-11.30)
[2023-03-14 13:29] LABS: Albumin, Blood 3.9 g/dL (3.4-5.0); Albumin/Globulin Ratio 0.8 (0.8-1.8); Bilirubin, Total 0.4 mg/dL (0.1-1.0); Bun/Creatinine Ratio 16.3 (12.0-20.0); Calcium, Blood 10.5 mg/dL (8.5-10.1); Creatinine, Blood 1.53 mg/dL (0.40-1.00); Globulin, Blood 4.8 g/dL (2.2-4.0); Thyroid Stimulating Hormone 2.737 uIU/mL (0.360-4.800); Total Protein, Blood 8.7 g/dL (6.4-8.2)
== END | disposition home or self-care (01) ==
LOC: LAB SHORT 12:55 → LAB 12:55
PROVIDERS: Physician Assistant
DX: R00.2 Palpitations (principal); R53.83 Other fatigue
CPT/HCPCS: 80053; 84443; 84484; 85025

== ENCOUNTER 2023-03-23 00:53 | Emergency (ER) | payer MEDICARE, OTHER ==
[~2023-03-23] VITALS: Ht 165.1 cm; Wt 49.9 kg
[2023-03-23 02:24] LABS: Source, Urine Clean Catch
[2023-03-23 02:57] LABS: Bilirubin, Urine Neg (Neg); Blood, Urine 5+ (Neg); Glucose Qualitative, Urine Neg (Neg); Ketones, Urine 1+ (Neg); Leukocyte Esterase, Urine Neg (Neg); Nitrite, Urine Neg (Neg); Protein, Urine 4+ (Neg); Specific Gravity, Urine 1.015 (1.003-1.022); Urobilinogen, Urine NORM (Normal); pH, Urine 6.5 (5.0-8.0)
[2023-03-23 03:13] LABS: Appearance, Urine Turbid (Clear); Color, Urine Red (P-Yellow)
[2023-03-23 03:15] LABS: Bacteria Mod /hpf; Red Blood Cells, Urine TNTC /hpf (0-2); Squamous Epithelial Cells Few /hpf (Few)
[2023-03-23 06:11] LABS: BASOPHILS ABSOLUTE AUTO 0.03 K/mm3 (0.00-0.23); BASOPHILS PERCENT AUTO 0 % (0-2); EOSINOPHILS ABSOLUTE AUTO 0.18 K/mm3 (0.00-0.68); EOSINOPHILS PERCENT AUTO 2 % (0-6); Hemoglobin 8.2 g/dL (11.5-16.0); IMMATURE GRAN ABSOLUTE AUTO 0.04 K/mm3 (0.00-0.10); IMMATURE GRAN PERCENT AUTO 1 % (0-1); LYMPHOCYTES ABSOLUTE AUTO 1.37 K/mm3 (0.84-5.20); LYMPHOCYTES PERCENT AUTO 18 % (21-46); MONOCYTES ABSOLUTE AUTO 0.65 K/mm3 (0.16-1.47); MONOCYTES PERCENT AUTO 8 % (4-13); Mean Corpuscular HGB Conc 30.4 g/dL (31.5-36.5); Mean Corpuscular Volume 79 fL (80-100); Mean Platelet Volume 10.1 fL (9.1-12.4); NEUTROPHILS ABSOLUTE AUTO 5.54 K/mm3 (1.96-9.15); NEUTROPHILS PERCENT AUTO 71 % (41-73); Platelet Count 220 K/mm3 (150-400); RDW Coefficient Variation 22.2 % (11.7-14.2); Red Blood Cell Count 3.42 M/mm3 (3.80-5.20); White Blood Cell Count 7.81 K/mm3 (4.00-11.30)
[2023-03-23 06:40] LABS: International Normalized Ratio 1.02; Prothrombin Time Results 10.7 Sec (9.7-11.5)
[2023-03-23 06:45] LABS: Albumin, Blood 3.2 g/dL (3.4-5.0); Albumin/Globulin Ratio 0.8 (0.8-1.8); Bilirubin, Total 0.4 mg/dL (0.1-1.0); Bun/Creatinine Ratio 18.2 (12.0-20.0); Calcium, Blood 8.7 mg/dL (8.5-10.1); Creatinine, Blood 0.94 mg/dL (0.40-1.00); Globulin, Blood 3.9 g/dL (2.2-4.0); Potassium, Blood 3.9 mmol/L (3.5-5.5); Total Protein, Blood 7.1 g/dL (6.4-8.2)
[2023-03-23 08:52] VITALS: BP 165/87
== END 2023-03-23 08:48 | disposition home or self-care (01) ==
LOC: ER 00:53
PROVIDERS: Emergency Medicine
DX: R31.0 Gross hematuria (principal); I12.9 Hypertensive chronic kidney disease with stage 1 through stage 4 chronic kidney disease, or unspecified chronic kidney disease; N18.9 Chronic kidney disease, unspecified; E11.22 Type 2 diabetes mellitus with diabetic chronic kidney disease; E78.5 Hyperlipidemia, unspecified; E03.9 Hypothyroidism, unspecified; G47.30 Sleep apnea, unspecified; J45.909 Unspecified asthma, uncomplicated; I48.91 Unspecified atrial fibrillation; Z85.54 Personal history of malignant neoplasm of ureter; Z93.6 Other artificial openings of urinary tract status; Z95.1 Presence of aortocoronary bypass graft; Z79.01 Long term (current) use of anticoagulants; Z79.82 Long term (current) use of aspirin; Z79.899 Other long term (current) drug therapy; Z91.030 Bee allergy status; Z91.048 Other nonmedicinal substance allergy status
CPT/HCPCS: 74177; 80053; 81001; 85025; 85610; 85730; 87086; 99284-25; Q9967

== ENCOUNTER 2023-05-03 10:55 | Inpatient (IN) | payer MEDICARE, OTHER ==
[~2023-05-03] VITALS: Ht 165.1 cm; Wt 47.0 kg
[2023-05-03 12:09] LABS: BASOPHILS ABSOLUTE AUTO 0.03 K/mm3 (0.00-0.23); BASOPHILS PERCENT AUTO 0 % (0-2); EOSINOPHILS ABSOLUTE AUTO 0.01 K/mm3 (0.00-0.68); EOSINOPHILS PERCENT AUTO 0 % (0-6); Hemoglobin 8.3 g/dL (11.5-16.0); IMMATURE GRAN PERCENT AUTO 1 % (0-1); LYMPHOCYTES ABSOLUTE AUTO 0.32 K/mm3 (0.84-5.20); LYMPHOCYTES PERCENT AUTO 2 % (21-46); MONOCYTES ABSOLUTE AUTO 0.92 K/mm3 (0.16-1.47); MONOCYTES PERCENT AUTO 5 % (4-13); Mean Corpuscular HGB 24.1 pg (26.0-34.0); Mean Corpuscular HGB Conc 30.7 g/dL (31.5-36.5); Mean Corpuscular Volume 78 fL (80-100); Mean Platelet Volume 9.2 fL (9.1-12.4); NEUTROPHILS ABSOLUTE AUTO 16.48 K/mm3 (1.96-9.15); NEUTROPHILS PERCENT AUTO 92 % (41-73); Platelet Count 318 K/mm3 (150-400); RDW Coefficient Variation 20.8 % (11.7-14.2); RDW Standard Deviation 58.9 fL (35.1-46.3); Red Blood Cell Count 3.45 M/mm3 (3.80-5.20); White Blood Cell Count 17.86 K/mm3 (4.00-11.30)
[2023-05-03 12:24] LABS: Albumin, Blood 3.3 g/dL (3.4-5.0); Albumin/Globulin Ratio 0.7 (0.8-1.8); Bilirubin, Total 0.4 mg/dL (0.1-1.0); Bun/Creatinine Ratio 11.3 (12.0-20.0); Calcium, Blood 9.5 mg/dL (8.5-10.1); Creatinine, Blood 3.19 mg/dL (0.40-1.00); Globulin, Blood 4.9 g/dL (2.2-4.0); Potassium, Blood 3.9 mmol/L (3.5-5.5); Total Protein, Blood 8.2 g/dL (6.4-8.2)
[2023-05-03 12:44] LABS: BAND PERCENT MAN 2 % (0-8); BASOPHILS PERCENT MAN 0 % (0-2); EOSINOPHILS PERCENT MAN 0 % (0-6); LYMPHOCYTES ABSOLUTE MAN 0.35 K/mm3 (0.84-5.20); LYMPHOCYTES PERCENT MAN 2 % (21-46); MONOCYTES ABSOLUTE MAN 1.25 K/mm3 (0.16-1.47); MONOCYTES PERCENT MAN 7 % (4-13); NEUTROPHILS ABSOLUTE MAN 16.25 K/mm3 (1.96-9.15); SEG NEUTROPHILS PERCENT MAN 89 % (41-73); TOTAL CELLS COUNTED 100
[2023-05-03 12:47] LABS: Source, Urine Straight Cath
[2023-05-03 12:59] LABS: Appearance, Urine Cloudy (Clear); Bilirubin, Urine Neg (Neg); Blood, Urine 5+ (Neg); Color, Urine Yellow (P-Yellow); Glucose Qualitative, Urine Neg (Neg); Ketones, Urine Neg (Neg); Leukocyte Esterase, Urine 3+ (Neg); Nitrite, Urine Neg (Neg); Protein, Urine 3+ (Neg); Urobilinogen, Urine NORM (Normal)
[2023-05-03 13:06] LABS: Influenza A, PCR NEGATIVE (NEGATIVE); Influenza B, PCR NEGATIVE (NEGATIVE); Resp Syncytial Virus, PCR NEGATIVE (NEGATIVE)
[2023-05-03 13:07] LABS: SARS-Cov-2 (COVID-19) PCR, MMC POSITIVE (NEGATIVE)
[2023-05-03 13:11] LABS: Bacteria Few /hpf; Red Blood Cells, Urine 25-50 /hpf (0-2); Squamous Epithelial Cells Rare /hpf (Few); White Blood Cells, Urine TNTC /hpf (0-5)
[2023-05-03] MEDS ORDERED: NS 1,000 ML IV SCH (14:25)
[2023-05-03] MEDS ORDERED: CefTRIAXone Sodium 1,000 MG in NS 50 ML IV ONE (14:30)
[2023-05-03] MEDS ORDERED: Lactated Ringer's 1,000 ML IV SCH (16:20)
[2023-05-03] MEDS ORDERED: METO50 PO ×2 (17:04)
[2023-05-03] MEDS ORDERED: Acetaminophen 500 MG Tab PO PRN (17:25)
[2023-05-03] MEDS ORDERED: Nitroglycerin 0.4 MG SUBL SL PRN (17:25)
[2023-05-03] MEDS ORDERED: Remdesivir (EUA) 200 MG in NS 250 ML IV ONE (17:30)
[2023-05-03 17:58] VITALS: BP 170/87
--- NOTE | 2023-05-03 18:40 | NUR ---
SHIFT SUMMARY PT ARRIVED TO THE FLOOR AT 1745. PT A&OX3 AND REQUIRED REORIENTATION TO THE MONTH AND YEAR, BUT WAS EASILY REORIENTABLE. THIS NURSE ASSISTED PT TO THE BSC W/ MINIMAL ASSIST. PT TOLERATING PO, VOIDING, AND DENIED PAIN. PT DECLINED TO CHANGING INTO A GOWN DUE TO FEELING COLD IN TEMP. PT HYPERTENSIVE, BUT ASYMPTOMATIC AND HAS HX OF HTN. PT WAS ORIENTED TO THE ROOM AND CALL LIGHT. CALL LIGHT WITHIN REACH AND PT ABLE TO MAKE NEEDS KNOWN.
[2023-05-03 19:54] LABS: Digoxin (Lanoxin) 0.24 ug/mL (0.80-2.00)
[2023-05-03] MEDS ORDERED: Multivitamins 1 Tab PO SCH (21:00)
[2023-05-03] MEDS ORDERED: Atorvastatin 40 MG Tab PO SCH (21:00)
[2023-05-03] MEDS ORDERED: Apixaban 5 MG Tab PO SCH (21:00)
[2023-05-03] MEDS ORDERED: Metoprolol Tartrate 50 MG Tab PO SCH (21:00)
[2023-05-03 21:32] LABS: Bun/Creatinine Ratio 11.7 (12.0-20.0); Calcium, Blood 8.9 mg/dL (8.5-10.1); Creatinine, Blood 3.25 mg/dL (0.40-1.00); Potassium, Blood 4.1 mmol/L (3.5-5.5)
[2023-05-03 21:38] VITALS: BP 146/50
--- NOTE | 2023-05-04 04:17 | NUR ---
RECEIVED POSITIVE BLOOD CULTURE READING AT 0359, CALLED PHYSICIAN AT 0417, PT TO BE STARTED ON VANCOMYCIN.
[2023-05-04] MEDS ORDERED: Vancomycin HCL 1,000 MG in NS 100 ML IV ONE (05:00)
--- NOTE | 2023-05-04 05:23 | NUR ---
SHIFT SUMMARY PT A&OX4 AND ANSWERS QUESTIONS APPROPRIATELY. PT HAD NO COMPLAINTS OF PAIN DURING SHIFT. PT IS CONTINENT AND WALKS WITH FWW TO BR. PT HAD POSITIVE BLOOD CULTURES AND VANCOMYCIN WAS ORDERED. PT SLEPT THROUGH MOST OF SHIFT WITH EYES CLOSED AND RESPIRATIONS EVEN AND UNLABORED. NO ACUTE EVENTS OCCURED DURING SHIFT. PT LEFT IN A POSITION OF SAFETY WITH FALL PRECAUTIONS IN PLACE AND CALL LIGHT IN REACH.
[2023-05-04 05:29] LABS: BASOPHILS ABSOLUTE AUTO 0.04 K/mm3 (0.00-0.23); BASOPHILS PERCENT AUTO 0 % (0-2); EOSINOPHILS PERCENT AUTO 0 % (0-6); Hematocrit 25.5 % (33.0-51.0); Hemoglobin 7.9 g/dL (11.5-16.0); IMMATURE GRAN ABSOLUTE AUTO 0.08 K/mm3 (0.00-0.10); IMMATURE GRAN PERCENT AUTO 1 % (0-1); LYMPHOCYTES ABSOLUTE AUTO 0.92 K/mm3 (0.84-5.20); LYMPHOCYTES PERCENT AUTO 6 % (21-46); MONOCYTES ABSOLUTE AUTO 0.92 K/mm3 (0.16-1.47); MONOCYTES PERCENT AUTO 6 % (4-13); Mean Corpuscular HGB 24.4 pg (26.0-34.0); Mean Corpuscular Volume 79 fL (80-100); Mean Platelet Volume 9.2 fL (9.1-12.4); NEUTROPHILS ABSOLUTE AUTO 14.76 K/mm3 (1.96-9.15); NEUTROPHILS PERCENT AUTO 88 % (41-73); Platelet Count 281 K/mm3 (150-400); RDW Coefficient Variation 20.8 % (11.7-14.2); RDW Standard Deviation 59.5 fL (35.1-46.3); Red Blood Cell Count 3.24 M/mm3 (3.80-5.20); White Blood Cell Count 16.72 K/mm3 (4.00-11.30)
[2023-05-04 05:52] LABS: Albumin/Globulin Ratio 0.7 (0.8-1.8); Bilirubin, Total 0.4 mg/dL (0.1-1.0); Bun/Creatinine Ratio 12.5 (12.0-20.0); Calcium, Blood 9.3 mg/dL (8.5-10.1); Creatinine, Blood 3.28 mg/dL (0.40-1.00); Globulin, Blood 4.6 g/dL (2.2-4.0); Potassium, Blood 4.1 mmol/L (3.5-5.5); Total Protein, Blood 7.6 g/dL (6.4-8.2)
[2023-05-04] MEDS ORDERED: NS 250 ML IV PRN (05:55)
[2023-05-04] MEDS ORDERED: Levothyroxine Sodium 0.05 MG Tab PO SCH (06:00)
[2023-05-04 06:29] VITALS: BP 142/78
[2023-05-04 08:29] VITALS: BP 146/56
[2023-05-04] MEDS ORDERED: CefTRIAXone Sodium 1,000 MG in NS 50 ML IV SCH (09:00)
[2023-05-04] MEDS ORDERED: CefTRIAXone Sodium 2,000 MG in NS 100 ML IV SCH (09:00)
[2023-05-04] MEDS ORDERED: Aspirin 81 MG TabEC PO SCH (09:00)
[2023-05-04] MEDS ORDERED: Lactated Ringer's 1,000 ML IV SCH (10:00)
[2023-05-04] MEDS ORDERED: Remdesivir (EUA) 100 MG in NS 250 ML IV SCH (12:00)
[2023-05-04 14:19] LABS: Albumin, Blood 2.8 g/dL (3.4-5.0); Anion Gap 5 mmol/L (6-16); Blood Urea Nitrogen 44 mg/dL (8-24); Bun/Creatinine Ratio 15.1 (12.0-20.0); CO2, Blood 18 mmol/L (21-32); Calcium, Blood 8.9 mg/dL (8.5-10.1); Chloride, Blood 114 mmol/L (98-108); Creatinine, Blood 2.91 mg/dL (0.40-1.00); Glomerular Filtration Rate 16 (60-); Glucose, Blood 131 mg/dL (70-99); Phosphorus, Blood 3.6 mg/dL (2.5-4.9); Potassium, Blood 3.4 mmol/L (3.5-5.5); Sodium, Blood 137 mmol/L (136-145)
[2023-05-04 14:27] VITALS: BP 145/66
--- NOTE | 2023-05-04 15:46 | NUR ---
OSMIN FROM DR. HASTINGS OFFICE (ONCOLOGY) CALLED TO CHECK ON PT. PT WAS TO COME TO SCHEDULED APPIONTMENT BUT WAS A NO SHOW. CALLED TO VERIFY PT IN HOSPITAL.
--- NOTE | 2023-05-04 17:33 | NUR ---
NO ACUTE CHANGES THIS SHIFT. PT DENIES HAVING ANY RESPIRATORY SYMPTOMS OR ANY OTHER SYMPTOMS ASSOCIATED WITH COVID 19. INDEPENDENT IN THE ROOM. DENIES HAVING CHEST PAIN, SOB, ABDOMINAL PAIN, OR ANY OTHER PAIN. IV FLUIDS RUNNING. ECHO ORDERED DUE TO BACTEREMIA. SOURCE IS UNKOWN AT THIS TIME. PT IS ABLE TO MAKE NEEDS KNOWN. STRICT I/O. ALERT AND ORIENTEDX4. R/A.
[2023-05-04] MEDS ORDERED: Potassium Chloride 20 MEQ TabCR PO ONE (17:50)
[2023-05-04] MEDS ORDERED: Metoprolol Tartrate 50 MG Tab PO SCH (18:00)
[2023-05-04 19:27] VITALS: BP 125/57
[2023-05-04 21:30] LABS: Vancomycin, Random 13.3 ug/mL
--- NOTE | 2023-05-05 04:45 | NUR ---
SHIFT SUMMARY ADMITTED FOR JENNIFER. DNR CODE. ENHANCED PRECAUTIONS FOR COVID+. PLAN IS FOR AN ECHO TODAY TO RULE OUT ENDOCARDITIS. SHE HAS BACTEREMIA. SHE IS VERY MARSHALL. INDEPENDENT IN ROOM. ON CARDIAC/SOFT BITE SIZE DIET. SHE IS A&O X4. SHE IS CONTINENT. PACEMAKER IN PLACE. SHE IS ON ELIQUIS.
[2023-05-05 04:49] VITALS: BP 143/56
[2023-05-05 05:55] LABS: BASOPHILS ABSOLUTE AUTO 0.03 K/mm3 (0.00-0.23); BASOPHILS PERCENT AUTO 0 % (0-2); EOSINOPHILS ABSOLUTE AUTO 0.04 K/mm3 (0.00-0.68); EOSINOPHILS PERCENT AUTO 0 % (0-6); Hematocrit 23.2 % (33.0-51.0); Hemoglobin 7.1 g/dL (11.5-16.0); IMMATURE GRAN ABSOLUTE AUTO 0.04 K/mm3 (0.00-0.10); IMMATURE GRAN PERCENT AUTO 0 % (0-1); LYMPHOCYTES ABSOLUTE AUTO 1.25 K/mm3 (0.84-5.20); LYMPHOCYTES PERCENT AUTO 11 % (21-46); MONOCYTES ABSOLUTE AUTO 1.12 K/mm3 (0.16-1.47); MONOCYTES PERCENT AUTO 10 % (4-13); Mean Corpuscular HGB 24.1 pg (26.0-34.0); Mean Corpuscular HGB Conc 30.6 g/dL (31.5-36.5); Mean Corpuscular Volume 79 fL (80-100); Mean Platelet Volume 9.5 fL (9.1-12.4); NEUTROPHILS PERCENT AUTO 78 % (41-73); Platelet Count 255 K/mm3 (150-400); RDW Coefficient Variation 21.1 % (11.7-14.2); RDW Standard Deviation 60.3 fL (35.1-46.3); Red Blood Cell Count 2.94 M/mm3 (3.80-5.20); White Blood Cell Count 11.48 K/mm3 (4.00-11.30)
[2023-05-05 06:26] LABS: Bun/Creatinine Ratio 17.6 (12.0-20.0); Calcium, Blood 8.7 mg/dL (8.5-10.1); Creatinine, Blood 2.62 mg/dL (0.40-1.00); Potassium, Blood 3.9 mmol/L (3.5-5.5)
[2023-05-05] MEDS ORDERED: Vancomycin HCL 750 MG in NS 100 ML IV ONE (07:15)
[2023-05-05 07:19] VITALS: BP 142/60
[2023-05-05] MEDS ORDERED: Multivitamins 1 Tab PO SCH (09:00)
[2023-05-05 14:10] LABS: Hematocrit 24.4 % (33.0-51.0); Hemoglobin 7.5 g/dL (11.5-16.0)
[2023-05-05 14:57] LABS: SARS-Cov-2 (COVID-19) PCR, MMC POSITIVE (NEGATIVE)
[2023-05-05 15:25] VITALS: BP 163/73
[2023-05-05] MEDS ORDERED: Lactated Ringer's 1,000 ML IV SCH (16:00)
[2023-05-05 16:36] VITALS: BP 168/74
--- NOTE | 2023-05-05 17:40 | NUR ---
PT SBP 160S WITH HR 61. MORNING DOSE OF LOPRESSOR HELD DUE TO LOW HR. DR. BARTON NOTIFIED. PLS SEE UPDATED EMAR. PT DENIES CHEST PAIN, SOB, DIZZINESS.
[2023-05-05] MEDS ORDERED: Metoprolol Tartrate 25 MG Tab PO SCH (18:00)
--- NOTE | 2023-05-05 19:28 | NUR ---
NO ACUTE CHANGES THIS SHIFT. PT IS INDEPENDENT IN THE ROOM. R/A. LR FLUIDS RUNNING. RETESTED FOR COVID ANTIGEN. POSITIVE. UNABLE TO SCHEDULE BERTRAND AT THIS TIME. ALERT AND ORIENTED X4, ABLE TO MAKE NEEDS KNOWN.
[2023-05-05 20:19] VITALS: BP 147/67
[2023-05-06] VITALS (14 sets, daily range): BP systolic 131–182; BP diastolic 49–72
--- NOTE | 2023-05-06 04:35 | NUR ---
SHIFT SUMMARY ADMITTED FOR JENNIFER. DNR CODE. ENHANCED PRECAUTIONS FOR COVID+. SHE DOES HAVE BACTEREMIA, SOURCE YET UNKNOWN. SHE IS VERY [place]. A&O X4, ON RA, INDEPENDENT. CARDIAC/SOFT BITE DIET. SHE IS CONTINENT. PACEMAKER IN PLACE. SHE IS ON ELIQUIS. LR INFUSING @ 100 ML/HR. BRADYCARDIA NOTED. HX: STEMI 01/2023, CHF, CANCER IN RIGHT URETER (SHE SEES DR. HASTINGS OUTPT), PROSTHETIC MITRAL VALVE. SHE LIVES IN [facility].
[2023-05-06 05:34] LABS: BASOPHILS ABSOLUTE AUTO 0.02 K/mm3 (0.00-0.23); BASOPHILS PERCENT AUTO 0 % (0-2); EOSINOPHILS ABSOLUTE AUTO 0.07 K/mm3 (0.00-0.68); EOSINOPHILS PERCENT AUTO 1 % (0-6); Hematocrit 21.7 % (33.0-51.0); Hemoglobin 6.8 g/dL (11.5-16.0); IMMATURE GRAN ABSOLUTE AUTO 0.04 K/mm3 (0.00-0.10); IMMATURE GRAN PERCENT AUTO 1 % (0-1); LYMPHOCYTES PERCENT AUTO 12 % (21-46); MONOCYTES ABSOLUTE AUTO 0.65 K/mm3 (0.16-1.47); MONOCYTES PERCENT AUTO 8 % (4-13); Mean Corpuscular HGB 24.1 pg (26.0-34.0); Mean Corpuscular HGB Conc 31.3 g/dL (31.5-36.5); Mean Corpuscular Volume 77 fL (80-100); Mean Platelet Volume 9.2 fL (9.1-12.4); NEUTROPHILS ABSOLUTE AUTO 6.34 K/mm3 (1.96-9.15); NEUTROPHILS PERCENT AUTO 78 % (41-73); Platelet Count 235 K/mm3 (150-400); RDW Standard Deviation 58.9 fL (35.1-46.3); Red Blood Cell Count 2.82 M/mm3 (3.80-5.20); White Blood Cell Count 8.12 K/mm3 (4.00-11.30)
[2023-05-06 06:11] LABS: Albumin, Blood 2.6 g/dL (3.4-5.0); Anion Gap 6 mmol/L (6-16); Blood Urea Nitrogen 40 mg/dL (8-24); Bun/Creatinine Ratio 17.4 (12.0-20.0); CO2, Blood 17 mmol/L (21-32); Calcium, Blood 8.9 mg/dL (8.5-10.1); Chloride, Blood 116 mmol/L (98-108); Glomerular Filtration Rate 21 (60-); Glucose, Blood 96 mg/dL (70-99); Phosphorus, Blood 2.4 mg/dL (2.5-4.9); Potassium, Blood 3.2 mmol/L (3.5-5.5); Sodium, Blood 139 mmol/L (136-145)
--- NOTE | 2023-05-06 07:11 | NUR ---
critical value 6.8 hgb recieved by this RN during RN to RN shift report from [facility]. phone call placed to dr Mustafa. Order recieved to transfuse 1 unit PRBC and make sure LR is Discontinued.
[2023-05-06] MEDS ORDERED: Potassium Chloride 20 MEQ TabCR PO SCH (12:00)
--- NOTE | 2023-05-06 13:22 | NUR ---
patient c/o lightheadendess, vitals done and patient states slight funny feeling with heart but denies chest pain, pressure or shortness of breath. she does verbalize pressure around head like a band pushing on her. potassium given, dr castellon notified, orders to go ahead with giving blood at this time.
[2023-05-06] MEDS ORDERED: HydrALAZINE HCl 20 MG / ML 1ML Vial IV PRN (17:55)
--- NOTE | 2023-05-06 18:07 | NUR ---
SHIFT SUMMARY PATIENT WITH HEADACHE EARLIER IN DAY. RESOLVED WHILE BLOOD TRANSFUSION PROGRESSING. BP SLOWLY CLIMBIING UP TO 180S, DR BARTON NOTIFIED, HYDRALAZINE PRN ORDERED ABOVE SYSTOLIC 165. MEDICATION GIVEN. BP TRENDING DOWN AT THIS TIME PATIENT WITH NO CONCERNS OR NEW ISSUES AT THIS TIME. SHE IS UP AD FILEMON TO BATHROOM WITH OR WITHOUT IV POLE. BED IN LOW POSITION, CALL LIGHT IN REACH. PATIENT ABLE TO MAKE NEEDS KNOWN.
[2023-05-07 04:38] VITALS: BP 137/55
[2023-05-07 05:55] LABS: BASOPHILS ABSOLUTE AUTO 0.02 K/mm3 (0.00-0.23); BASOPHILS PERCENT AUTO 0 % (0-2); EOSINOPHILS ABSOLUTE AUTO 0.09 K/mm3 (0.00-0.68); EOSINOPHILS PERCENT AUTO 1 % (0-6); Hematocrit 26.7 % (33.0-51.0); Hemoglobin 8.6 g/dL (11.5-16.0); IMMATURE GRAN ABSOLUTE AUTO 0.04 K/mm3 (0.00-0.10); IMMATURE GRAN PERCENT AUTO 1 % (0-1); LYMPHOCYTES ABSOLUTE AUTO 1.13 K/mm3 (0.84-5.20); LYMPHOCYTES PERCENT AUTO 15 % (21-46); MONOCYTES PERCENT AUTO 9 % (4-13); Mean Corpuscular HGB 25.2 pg (26.0-34.0); Mean Corpuscular HGB Conc 32.2 g/dL (31.5-36.5); Mean Corpuscular Volume 78 fL (80-100); Mean Platelet Volume 9.5 fL (9.1-12.4); NEUTROPHILS PERCENT AUTO 75 % (41-73); Platelet Count 239 K/mm3 (150-400); RDW Coefficient Variation 20.1 % (11.7-14.2); RDW Standard Deviation 58.4 fL (35.1-46.3); Red Blood Cell Count 3.41 M/mm3 (3.80-5.20); White Blood Cell Count 7.78 K/mm3 (4.00-11.30)
--- NOTE | 2023-05-07 06:11 | NUR ---
SHIFT SUMMARY NOC PT A/O X 4. PLEASANT AND COOPERATIVE WITH CARE. NO ACUTE EVENTS TO REPORT. PT IN ENHANCED ISOLATION FOR COVID 19. VSS. PT SLEPT FOR ABOUT ENTIRETY OF SHIFT. PT IS AWAITING PICC LINE PLACEMENT 05/07/23 FOR 6 WEEEKS OUTPATIENT ABX AT [facility]. PT RECEIVED I UNIT PRBC FOR HGB 6.8 YESTERDAY, TODAY HGB 8.6. PT IS CURRENTLY RESTING WITH BED IN LOWEST POSITION, AND CALL LIGHT WITHIN REACH.
[2023-05-07 06:28] LABS: Bun/Creatinine Ratio 15.5 (12.0-20.0); Creatinine, Blood 1.93 mg/dL (0.40-1.00); Potassium, Blood 3.3 mmol/L (3.5-5.5)
[2023-05-07 07:33] VITALS: BP 153/63
[2023-05-07] MEDS ORDERED: Metoprolol Tartrate 50 MG Tab PO SCH (08:00)
[2023-05-07] MEDS ORDERED: Potassium Chloride 40 MEQ in NS 250 ML IV STA (08:27)
--- NOTE | 2023-05-07 08:55 | NUR ---
PHYSICIAN CONTACT CONTACTED DR COX REGARDING RYTHYM CHANGE TO AFIB AND EPISODES OF RVR. DISCUSSED METOPROLOL DOSE AND POTASSIUM ADMINISTRATION BEING POSSIBLE CAUSITIVE. ORDERS TO MONITOR FOR NOW AND ADMIN SAID MEDS. CARES ONGOING
--- NOTE | 2023-05-07 11:00 | NUR ---
PHYSICIAN CONTACT CONTACTED DR COX REGARDING TELEMETRY CHANGES. TELEMETRY REPORTS INAPPROPRIATE FIRING OF PACER, PACING ON TOP OF T WAVE REPORTED. RESEARCH DEVELOPMENT MANAGER AND CHARGE MADE AWARE. RESEARCH DEVELOPMENT MANAGER CONTACTING [employer] TO REQUEST INTERROGATION. CALL BACK FROM MAG AT [facility], REQUESTING US TO USE [employer] DEVICE TO SEND TRANSMISSION WHICH SHE WILL INTERPRET AND CALL MEDICAL FLOOR WITH FINDINGS. EMERGENCY ROOM CONTACTED TO REQUEST USE OF [employer] DEVICE. CARES ONGOING
--- NOTE | 2023-05-07 11:36 | NUR ---
DEVICE INTERROGATION ED STAFF TO MEDICAL FLOOR PERFORMED INTERROGATION, STATED TRANSMISSION IS SOMETIMES NOT RELIABLE AND WILL LET STAFF KNOW IF IT WAS SUCCESSFUL. CARES ONGOING
--- NOTE | 2023-05-07 11:47 | NUR ---
PHYSICIAN CONTACT RECIEVED CALLBACK FROM MAG AT [facility], REPORTS THAT DEVICE IS FUNCTIONING PROPERLY, BUT PATIENT IS IN A FLUTTER RATHER THAN FIB. DR COX NOTIFIED AND STATED SHE WILL DISCUSS WITH THE TEAM AND GET BACK WITH ORDERS. CARES ONGOING
[2023-05-07 15:01] VITALS: BP 135/65
--- NOTE | 2023-05-07 18:19 | NUR ---
SHIFT SUMMARY PICC LINE PLACED THIS SHIFT, SHORTLY AFTER BEGAN BLEEDING, AT THIS TIME BLOOD IS ABOUT 50% COVERING DRESSING WITH POOLING. PRESSURE DRESSING PLACED AND DR COX CALLED. INSTRUCTED TO CALL BACK IN 15 MINUTES WITH UPDATE. MULTIPLE CALLS TO DOC REGARDING PACER AND ELEVATED HEART RATE, INTERROGATION CAME BACK NORMAL FUNCTION. METOPROLOL DOSE INCREASED THIS SHIFT. CARES ONGOING.
[2023-05-07 20:46] VITALS: BP 141/97
[2023-05-08 04:19] VITALS: BP 130/78
[2023-05-08 05:34] LABS: BASOPHILS ABSOLUTE AUTO 0.03 K/mm3 (0.00-0.23); BASOPHILS PERCENT AUTO 0 % (0-2); EOSINOPHILS ABSOLUTE AUTO 0.08 K/mm3 (0.00-0.68); EOSINOPHILS PERCENT AUTO 1 % (0-6); Hematocrit 33.2 % (33.0-51.0); Hemoglobin 10.6 g/dL (11.5-16.0); IMMATURE GRAN ABSOLUTE AUTO 0.06 K/mm3 (0.00-0.10); IMMATURE GRAN PERCENT AUTO 1 % (0-1); LYMPHOCYTES ABSOLUTE AUTO 1.95 K/mm3 (0.84-5.20); LYMPHOCYTES PERCENT AUTO 17 % (21-46); MONOCYTES PERCENT AUTO 9 % (4-13); Mean Corpuscular HGB 25.2 pg (26.0-34.0); Mean Corpuscular HGB Conc 31.9 g/dL (31.5-36.5); Mean Corpuscular Volume 79 fL (80-100); Mean Platelet Volume 9.6 fL (9.1-12.4); NEUTROPHILS ABSOLUTE AUTO 8.17 K/mm3 (1.96-9.15); NEUTROPHILS PERCENT AUTO 72 % (41-73); Platelet Count 286 K/mm3 (150-400); RDW Coefficient Variation 20.7 % (11.7-14.2); RDW Standard Deviation 59.2 fL (35.1-46.3); White Blood Cell Count 11.29 K/mm3 (4.00-11.30)
--- NOTE | 2023-05-08 06:01 | NUR ---
SHIFT SUMMARY NOC PT A/O X 4. PLEASANT AND COOPERATIVE WITH CARE. NEW PICC BELLE WAS BLEEDING AFTER INSERTION, PRESSURE DRESSING IN PLACE, BUT UPON ASSESSMENT PERIODICALLY, NO NEW BLEEDING NOTED, WILL CONTINUE TO MONITOR. ON TELE RUNNING AV PACED IN 90'S. NO AFLUTTER REPORTED BY TELE THUS FAR. PT STILL ON ENHANCED PRECAUTIONS FOR COVID 19. PT SHOULD DISCHARGE TODAY AND CONTINUE 6 WEEK OUTPATIENT ABX THERAPY AT [facility] FOR POSSIBLE VALVE VEGETATION. PT IS CURRENTLY RESTING WITH BED IN LOWEST POSITION, AND CALL LIGHT WITHIN REACH.
[2023-05-08 06:30] LABS: Bun/Creatinine Ratio 15.7 (12.0-20.0); Calcium, Blood 9.5 mg/dL (8.5-10.1); Creatinine, Blood 1.53 mg/dL (0.40-1.00); Potassium, Blood 3.4 mmol/L (3.5-5.5)
[2023-05-08 08:09] VITALS: BP 127/81
[2023-05-08] MEDS ORDERED: Potassium Chloride 20 MEQ TabCR PO SCH (08:30)
[2023-05-08] MEDS ORDERED: CEFTRIAXONE2 G1 IV ×2 (11:03)
--- NOTE | 2023-05-08 12:50 | NUR ---
DISCHARGE SUMMARY PATIENT DISCHARGED THIS SHIFT VIA TAXI. PERIPHERAL IV REMOVED, NO COMPLICATIONS. PICC DRESSING CHANGED BEFORE DISCHARGE, MINIMAL BLOOD PRESENT AT INSERTION SITE. EDUCATION PROVIDED REGARDING PICC CARE AND ACCIDENTAL REMOVAL, S/S OF INFECTION, WHEN TO SEEK EMERGENCY CARE. PATIENT ABLE TO TEACHBACK THIS EDUCATION. DISCHARGE PACKET GIVEN AND DISCUSSED, VERBALIZED UNDERSTANDING. APPOINTMENTS CONFIRMED FOR OUTPATIENT ABX INFUSIONS WITH [facility]. PATIENT VERBALIZES THESE APPTS.
== END 2023-05-08 12:25 | disposition home or self-care (01) | DRG 871 ==
LOC: ER 10:55 → MEDS 10:56 → ENPENDDIS 05-07 16:36 → MEDS 05-08 12:25
PROVIDERS: Emergency Medicine; Family Medicine; Internal Medicine; Student in an Organized Health Care Education/Training Program; ADMIT Hospitalist
PROC: 3E03329 Introduction of Other Anti-infective into Peripheral Vein, Percutaneous Approach (ICD-10-PCS; principal; 2023-05-03)
PROC: XW033E5 Introduction of Remdesivir Anti-infective into Peripheral Vein, Percutaneous Approach, New Technology Group 5 (ICD-10-PCS; 2023-05-03)
PROC: 30233N1 Transfusion of Nonautologous Red Blood Cells into Peripheral Vein, Percutaneous Approach (ICD-10-PCS; 2023-05-06)
PROC: 8E0ZXY6 Isolation (ICD-10-PCS; 2023-05-06)
PROC: 02HV33Z Insertion of Infusion Device into Superior Vena Cava, Percutaneous Approach (ICD-10-PCS; 2023-05-07)
DX: A40.8 Other streptococcal sepsis (principal); U07.1 COVID-19; N17.9 Acute kidney failure, unspecified; N39.0 Urinary tract infection, site not specified; T82.857A Stenosis of other cardiac prosthetic devices, implants and grafts, initial encounter; C66.1 Malignant neoplasm of right ureter; I13.0 Hypertensive heart and chronic kidney disease with heart failure and stage 1 through stage 4 chronic kidney disease, or unspecified chronic kidney disease; I50.22 Chronic systolic (congestive) heart failure; R65.20 Severe sepsis without septic shock; N18.30 Chronic kidney disease, stage 3 unspecified; I48.0 Paroxysmal atrial fibrillation; D63.1 Anemia in chronic kidney disease; I25.10 Atherosclerotic heart disease of native coronary artery without angina pectoris; I27.20 Pulmonary hypertension, unspecified; E89.0 Postprocedural hypothyroidism; D50.9 Iron deficiency anemia, unspecified; Y83.2 Surgical operation with anastomosis, bypass or graft as the cause of abnormal reaction of the patient, or of later complication, without mention of misadventure at the time of the procedure; E87.6 Hypokalemia; I25.2 Old myocardial infarction; Z95.1 Presence of aortocoronary bypass graft; Z79.01 Long term (current) use of anticoagulants; Z79.82 Long term (current) use of aspirin; Z79.890 Hormone replacement therapy; Z95.0 Presence of cardiac pacemaker; Z87.891 Personal history of nicotine dependence
CPT/HCPCS: 0241U; 36415; 36430; 36569; 71045; 71046; 76770; 80048; 80053; 80069; 80162; 80202; 81001; 83605; 85014; 85018; 85025; 86850; 86870; 86900; 86901; 86902; 86922; 87040; 87086; 87147; 87426; 87811; 93005; 93010; 93306; 94760; 96361; 96365; 96366; 96375; 96376; 99285-25; A9270; C1751; G0378; J0248; J0360; J0696; J3370; J3480; J7030; J7050; J7120; P9016; U0002

== ENCOUNTER 2023-05-09 09:37 | Day surgery (SDC) | payer MEDICARE, OTHER ==
[~2023-05-09 09:37] MED LIST changes: +CEFTRIAXONE2 G1 IV; +CefTRIAXone Sodium 2,000 MG in NS 100 ML IV SCH; +METO50 PO
[2023-05-09 16:08] VITALS: BP 115/75
[2023-05-09] MEDS ORDERED: CefTRIAXone Sodium 2,000 MG in NS 100 ML IV SCH (16:15)
== END 2023-05-09 16:28 | disposition home or self-care (01) ==
LOC: ATC 09:37
DX: R78.81 Bacteremia (principal); B95.5 Unspecified streptococcus as the cause of diseases classified elsewhere; Z91.038 Other insect allergy status; Z91.018 Allergy to other foods; I25.10 Atherosclerotic heart disease of native coronary artery without angina pectoris; Z95.1 Presence of aortocoronary bypass graft; Z95.2 Presence of prosthetic heart valve; Z95.0 Presence of cardiac pacemaker; I48.91 Unspecified atrial fibrillation; Z79.82 Long term (current) use of aspirin; Z79.899 Other long term (current) drug therapy
CPT/HCPCS: 96365; J0696

== ENCOUNTER 2023-05-10 01:58 | Day surgery (SDC) | payer MEDICARE, OTHER ==
[2023-05-10 16:04] VITALS: BP 109/67
== END 2023-05-10 16:25 | disposition home or self-care (01) ==
LOC: ATC 01:58
DX: R78.81 Bacteremia (principal); B95.5 Unspecified streptococcus as the cause of diseases classified elsewhere; I25.10 Atherosclerotic heart disease of native coronary artery without angina pectoris; I48.91 Unspecified atrial fibrillation; Z79.01 Long term (current) use of anticoagulants; Z79.899 Other long term (current) drug therapy; Z95.1 Presence of aortocoronary bypass graft; Z95.0 Presence of cardiac pacemaker
CPT/HCPCS: 96365; J0696

== ENCOUNTER 2023-05-11 00:02 | Day surgery (SDC) | payer MEDICARE, OTHER ==
[~2023-05-11 00:02] MED LIST changes: -CefTRIAXone Sodium 2,000 MG in NS 100 ML IV SCH
[2023-05-11] MEDS ORDERED: CefTRIAXone Sodium 2,000 MG in NS 100 ML IV SCH (06:00)
[2023-05-11 16:15] VITALS: BP 111/73
== END 2023-05-11 16:40 | disposition home or self-care (01) ==
LOC: ATC 00:02
DX: R78.81 Bacteremia (principal); B95.5 Unspecified streptococcus as the cause of diseases classified elsewhere; I25.10 Atherosclerotic heart disease of native coronary artery without angina pectoris; I48.91 Unspecified atrial fibrillation; Z95.1 Presence of aortocoronary bypass graft; Z95.0 Presence of cardiac pacemaker
CPT/HCPCS: 96365; J0696

== ENCOUNTER 2023-05-12 00:53 | Day surgery (SDC) | payer MEDICARE, OTHER ==
[2023-05-12] MEDS ORDERED: CefTRIAXone Sodium 2,000 MG in NS 100 ML IV SCH (01:00)
[2023-05-12 16:17] VITALS: BP 132/83
== END 2023-05-12 16:40 | disposition home or self-care (01) ==
LOC: ATC 00:53
DX: I25.10 Atherosclerotic heart disease of native coronary artery without angina pectoris (principal); B95.4 Other streptococcus as the cause of diseases classified elsewhere; I48.91 Unspecified atrial fibrillation; Z95.1 Presence of aortocoronary bypass graft; Z79.01 Long term (current) use of anticoagulants; Z95.0 Presence of cardiac pacemaker; Z86.16 Personal history of COVID-19; Z91.030 Bee allergy status; Z91.048 Other nonmedicinal substance allergy status; Z79.82 Long term (current) use of aspirin; Z95.2 Presence of prosthetic heart valve; Z96.0 Presence of urogenital implants
CPT/HCPCS: 96365; J0696

== ENCOUNTER 2023-05-13 00:53 | Day surgery (SDC) | payer MEDICARE, OTHER ==
[2023-05-13] MEDS ORDERED: CefTRIAXone Sodium 2,000 MG in NS 100 ML IV SCH (01:00)
[2023-05-13 16:00] VITALS: BP 148/75
== END 2023-05-13 16:28 | disposition home or self-care (01) ==
LOC: ATC 00:53
DX: R78.81 Bacteremia (principal); B95.4 Other streptococcus as the cause of diseases classified elsewhere; I48.91 Unspecified atrial fibrillation; I25.10 Atherosclerotic heart disease of native coronary artery without angina pectoris; Z95.1 Presence of aortocoronary bypass graft; Z95.0 Presence of cardiac pacemaker
CPT/HCPCS: 96365; J0696

== ENCOUNTER 2023-05-14 09:32 | Day surgery (SDC) | payer MEDICARE, OTHER ==
[~2023-05-14 09:32] MED LIST changes: +CefTRIAXone Sodium 2,000 MG in NS 100 ML IV SCH
[2023-05-14 09:47] VITALS: BP 132/57
== END 2023-05-14 10:12 | disposition home or self-care (01) ==
LOC: ATC 09:32
DX: R78.81 Bacteremia (principal); B95.5 Unspecified streptococcus as the cause of diseases classified elsewhere; I25.10 Atherosclerotic heart disease of native coronary artery without angina pectoris; Z95.1 Presence of aortocoronary bypass graft; Z95.0 Presence of cardiac pacemaker; I48.91 Unspecified atrial fibrillation; Z95.4 Presence of other heart-valve replacement
CPT/HCPCS: 96365; J0696

== ENCOUNTER 2023-05-15 09:32 | Day surgery (SDC) | payer MEDICARE, OTHER ==
[2023-05-15 09:42] VITALS: BP 111/46
== END 2023-05-15 10:08 | disposition home or self-care (01) ==
LOC: ATC 09:32
DX: R78.81 Bacteremia (principal); B95.4 Other streptococcus as the cause of diseases classified elsewhere; I25.10 Atherosclerotic heart disease of native coronary artery without angina pectoris; I48.91 Unspecified atrial fibrillation; Z95.1 Presence of aortocoronary bypass graft; Z79.01 Long term (current) use of anticoagulants; Z95.0 Presence of cardiac pacemaker
CPT/HCPCS: 96365; J0696

== ENCOUNTER 2023-05-16 08:38 | Day surgery (SDC) | payer MEDICARE, OTHER ==
[2023-05-16 13:27] VITALS: BP 119/74
[2023-05-16 13:48] LABS: BASOPHILS ABSOLUTE AUTO 0.04 K/mm3 (0.00-0.23); BASOPHILS PERCENT AUTO 0 % (0-2); EOSINOPHILS ABSOLUTE AUTO 0.47 K/mm3 (0.00-0.68); EOSINOPHILS PERCENT AUTO 5 % (0-6); Hematocrit 27.9 % (33.0-51.0); Hemoglobin 8.8 g/dL (11.5-16.0); IMMATURE GRAN ABSOLUTE AUTO 0.05 K/mm3 (0.00-0.10); IMMATURE GRAN PERCENT AUTO 1 % (0-1); LYMPHOCYTES ABSOLUTE AUTO 1.16 K/mm3 (0.84-5.20); LYMPHOCYTES PERCENT AUTO 11 % (21-46); MONOCYTES ABSOLUTE AUTO 1.05 K/mm3 (0.16-1.47); MONOCYTES PERCENT AUTO 10 % (4-13); Mean Corpuscular HGB 25.9 pg (26.0-34.0); Mean Corpuscular HGB Conc 31.5 g/dL (31.5-36.5); Mean Corpuscular Volume 82 fL (80-100); NEUTROPHILS ABSOLUTE AUTO 7.71 K/mm3 (1.96-9.15); NEUTROPHILS PERCENT AUTO 74 % (41-73); Platelet Count 216 K/mm3 (150-400); RDW Coefficient Variation 20.7 % (11.7-14.2); White Blood Cell Count 10.48 K/mm3 (4.00-11.30)
[2023-05-16 14:12] LABS: Albumin, Blood 3.1 g/dL (3.4-5.0); Albumin/Globulin Ratio 0.7 (0.8-1.8); Bilirubin, Total 0.3 mg/dL (0.1-1.0); Bun/Creatinine Ratio 11.8 (12.0-20.0); Calcium, Blood 9.2 mg/dL (8.5-10.1); Creatinine, Blood 3.47 mg/dL (0.40-1.00); Globulin, Blood 4.7 g/dL (2.2-4.0); Potassium, Blood 4.5 mmol/L (3.5-5.5); Total Protein, Blood 7.8 g/dL (6.4-8.2)
== END 2023-05-16 13:55 | disposition home or self-care (01) ==
LOC: ATC 08:38
PROVIDERS: Internal Medicine Hematology & Oncology
DX: R78.81 Bacteremia (principal); B95.4 Other streptococcus as the cause of diseases classified elsewhere; I25.10 Atherosclerotic heart disease of native coronary artery without angina pectoris; Z95.1 Presence of aortocoronary bypass graft; I48.91 Unspecified atrial fibrillation; Z95.0 Presence of cardiac pacemaker; Z79.01 Long term (current) use of anticoagulants; Z79.899 Other long term (current) drug therapy
CPT/HCPCS: 80053; 85025; 96365; J0696

== ENCOUNTER 2023-05-17 03:21 | Day surgery (SDC) | payer MEDICARE, OTHER ==
[~2023-05-17 03:21] MED LIST changes: -CefTRIAXone Sodium 2,000 MG in NS 100 ML IV SCH
[2023-05-17] MEDS ORDERED: CefTRIAXone Sodium 2,000 MG in NS 100 ML IV SCH (06:00)
[2023-05-17 13:36] VITALS: BP 136/65
== END 2023-05-17 14:00 | disposition home or self-care (01) ==
LOC: ATC 03:21
DX: R78.81 Bacteremia (principal); Z91.038 Other insect allergy status; Z91.048 Other nonmedicinal substance allergy status; I25.10 Atherosclerotic heart disease of native coronary artery without angina pectoris; Z95.1 Presence of aortocoronary bypass graft; Z95.0 Presence of cardiac pacemaker; I48.91 Unspecified atrial fibrillation; B95.5 Unspecified streptococcus as the cause of diseases classified elsewhere; R42 Dizziness and giddiness; I12.9 Hypertensive chronic kidney disease with stage 1 through stage 4 chronic kidney disease, or unspecified chronic kidney disease; E11.22 Type 2 diabetes mellitus with diabetic chronic kidney disease; N18.30 Chronic kidney disease, stage 3 unspecified; E78.5 Hyperlipidemia, unspecified; E03.9 Hypothyroidism, unspecified; G47.30 Sleep apnea, unspecified; Z79.01 Long term (current) use of anticoagulants; Z79.899 Other long term (current) drug therapy
CPT/HCPCS: 80053; 85025; 93005; 93010; 96365; 99284-25; J0696

== ENCOUNTER 2023-05-18 05:10 | Day surgery (SDC) | payer MEDICARE, OTHER ==
[~2023-05-18 05:10] MED LIST changes: +CefTRIAXone Sodium 2,000 MG in NS 100 ML IV SCH
[2023-05-18 13:42] VITALS: BP 146/69
== END 2023-05-18 13:53 | disposition home or self-care (01) ==
LOC: ATC 05:10
DX: R78.81 Bacteremia (principal); B95.5 Unspecified streptococcus as the cause of diseases classified elsewhere; I25.10 Atherosclerotic heart disease of native coronary artery without angina pectoris; I48.91 Unspecified atrial fibrillation; Z79.01 Long term (current) use of anticoagulants; Z79.899 Other long term (current) drug therapy; Z95.0 Presence of cardiac pacemaker; Z95.1 Presence of aortocoronary bypass graft; Z85.54 Personal history of malignant neoplasm of ureter
CPT/HCPCS: 96365; J0696

== ENCOUNTER 2023-05-19 02:50 | Day surgery (SDC) | payer MEDICARE, OTHER ==
[2023-05-19 13:32] VITALS: BP 117/90
== END 2023-05-19 13:53 | disposition home or self-care (01) ==
LOC: ATC 02:50
DX: R78.81 Bacteremia (principal); B95.4 Other streptococcus as the cause of diseases classified elsewhere; I25.10 Atherosclerotic heart disease of native coronary artery without angina pectoris; Z95.1 Presence of aortocoronary bypass graft; I48.91 Unspecified atrial fibrillation; Z79.01 Long term (current) use of anticoagulants; Z79.82 Long term (current) use of aspirin; Z79.899 Other long term (current) drug therapy
CPT/HCPCS: 96365; J0696